=== PATIENT | female | born 1975 | race Caucasian/White ===

== ENCOUNTER 2018-07-08 10:13 | Inpatient (IN) | payer MEDICAID, OTHER ==
--- NOTE | 2018-07-08 10:45 | ED ---
General Adult HPI - General Chief complaint: Psychiatric Symptoms Stated complaint: Mental Health Source: patient, RN notes reviewed Mode of arrival: ambulatory Limitations: no limitations - History of Present Illness Initial comments: 42-year-old female presents to the emergency department for a chief complaint of suicidal thoughts. Patient states these have been ongoing for quite some time however are worsening in the past several days. Patient states she is hearing auditory hallucinations telling her to kill herself by either slitting her wrists or stabbing herself. Patient does have a legal guardian who states this occurs every few years and patient generally needs a medication adjustment. Patient is still taking her medications as recommended. Patient states these voices are starting to cause her severe anxiety. States she had a dream last night in which she in vision herself killing herself and she woke up crying and upset.Patient has no other complaints at this time including shortness of breath, chest pain, abdominal pain, nausea or vomiting, headache, or visual changes. - Related Data Home Medications Medication Instructions Recorded Confirmed ALPRAZolam [Xanax] 1 mg PO TID 07/08/18 07/08/18 Acyclovir 400 mg PO BID 07/08/18 07/08/18 Benztropine Mesylate [Cogentin] 0.5 mg PO BID 07/08/18 07/08/18 FLUoxetine HCL [PROzac] 80 mg PO DAILY 07/08/18 07/08/18 Levothyroxine Sodium [Synthroid] 50 mcg PO DAILY 07/08/18 07/08/18 Paliperidone IM [Invega Sustenna] 234 mg IM Q28D 07/08/18 07/08/18 Paliperidone [Invega] 6 mg PO HS 07/08/18 07/08/18 Previous Rx's Medication Instructions Recorded Furosemide [Lasix] 10 mg PO DAILY 30 Days dose 10/08/15 Prazosin [Minipress] 5 mg PO HS #30 cap 10/08/15 lamoTRIgine [LaMICtal] 200 mg PO BID 30 Days tab 10/08/15 Allergies Allergy/AdvReac Type Severity Reaction Status Date / Time codeine Allergy Unknown Hallucinati Verified 07/08/18 11:16 ons Iodinated Contrast- Oral and Allergy Unknown Verified 07/08/18 11:16 IV Dye latex Allergy Unknown Verified 07/08/18 11:16 Review of Systems ROS Statement: Those systems with pertinent positive or pertinent negative responses have been documented in the HPI. ROS Other: All systems not noted in ROS Statement are negative. Past Medical History Past Medical History: No Reported History History of Any Multi-Drug Resistant Organisms: None Reported, MRSA Date of last positivie culture/infection: 2007 MDRO Source:: abdomina, and axillary Past Surgical History: Section, Cholecystectomy Additional Past Surgical History / Comment(s): Patient states she is going for a colonscopy 10/12/2015 due to loose stools Past Psychological History: Bipolar, Depression, Schizophrenia Smoking Status: Current every day smoker Past Alcohol Use History: None Reported Past Drug Use History: Marijuana General Exam Limitations: no limitations General appearance: alert, in no apparent distress Head exam: Present: atraumatic, normocephalic, normal inspection Eye exam: Present: normal appearance, PERRL, EOMI. Absent: scleral icterus, conjunctival injection, periorbital swelling ENT exam: Present: normal exam, mucous membranes moist Neck exam: Present: normal inspection, full ROM. Absent: tenderness, meningismus, lymphadenopathy Respiratory exam: Present: normal lung sounds bilaterally. Absent: respiratory distress, wheezes, rales, rhonchi, stridor Cardiovascular Exam: Present: regular rate, normal rhythm, normal heart sounds. Absent: systolic murmur, diastolic murmur, rubs, gallop, clicks Neurological exam: Present: alert, oriented X3, CN II-XII intact Psychiatric exam: Present: suicidal ideation. Absent: homicidal ideation Course Vital Signs 07/08/18 10:20 Temperature 97.8 F Pulse Rate 70 Respiratory 18 Rate Blood Pressure 102/66 O2 Sat by Pulse 99 Oximetry Medical Decision Making - Medical Decision Making 42-year-old female with psychiatric history presents for auditory hallucinations and thoughts of suicide. This has happened before with patient. She is still taking her medications. However patient is very anxious and concerned about these thoughts. Patient was evaluated by EPS. Will be admitted for further management. - Lab Data Lab Results 07/08/18 Range/Units 10:40 Urine Opiates Screen Not Detected (NotDetected) Ur Oxycodone Screen Not Detected (NotDetected) Urine Methadone Screen Not Detected (NotDetected) Ur Propoxyphene Screen Not Detected (NotDetected) Ur Barbiturates Screen Not Detected (NotDetected) U Tricyclic Antidepress Not Detected (NotDetected) Ur Phencyclidine Scrn Not Detected (NotDetected) Ur Amphetamines Screen Not Detected (NotDetected) U Methamphetamines Scrn Not Detected (NotDetected) U Benzodiazepines Scrn Detected H (NotDetected) Urine Cocaine Screen Not Detected (NotDetected) U Marijuana (THC) Screen Not Detected (NotDetected) Disposition Clinical Impression: Auditory hallucinations, Suicidal thoughts Disposition: TRANSFER TO PSYCH HOSP/UNIT Condition: Good Is patient prescribed a controlled substance at d/c from ED?: No Referrals: Nonstaff,Physician [Primary Care Provider] - 1-2 days Time of Disposition: 13:12
[2018-07-08 11:22] LABS: Amphetamine Screen,Urine Not Detected (NotDetected); Cocaine Screen,Urine Not Detected (NotDetected); Opiate Screen,Urine Not Detected (NotDetected); Phencyclidine Screen,Urine Not Detected (NotDetected); Urn Cannabinoid Scrn Not Detected (NotDetected)
[2018-07-08 11:23] LABS: Barbiturate Screen,Urine Not Detected (NotDetected); Benzodiazepines Screen,Urine Detected (NotDetected); Methadone Screen, Urine Not Detected (NotDetected); Oxycodone Screen, Urine Not Detected (NotDetected); Tricyclic Antidepressant,Urine Not Detected (NotDetected)
[2018-07-08] MEDS ORDERED: MAG HYDROX/AL HYDROX/SIMETH 30 ML CUP PO PRN (14:55)
[2018-07-08] MEDS ORDERED: ACETAMINOPHEN TAB 325 MG TAB PO PRN (14:55)
[2018-07-08] MEDS ORDERED: MAGNESIUM HYDROXIDE 2,400 MG/10 ML CUP PO PRN (14:55)
--- NOTE | 2018-07-08 18:01 | P.CONS ---
History of Present Illness - Reason for Consult Consult date: 07/08/18 - History of Present Illness Patient is a 42-year-old female with a PMH of hypothyroidism, schizoaffective disorder, genital herpes, and chronic lower back pain presented to the ED for suicidal ideation. The patient notes that despite compliance with her antidepressants, she continues to have depressive thoughts along with suicidal ideation, along with her thoughts telling her to hurt herself. She reports planning on slitting her wrists. The patient also endorsed an ongoing genital herpes infection, which has been resistant to acyclovir prescribed by her PCP. She continues to have dysuria and pain. The patient also endorsed cough productive of greenish phlegm along with URI symptoms ongoing for the past 1 week. She reports she gets similar symptoms every year which always resolve spontaneously. She otherwise denied any active complaints including chest pain, shortness of breath, fever, chills, abdominal pain, nausea, or vomiting. Review of Systems Pertinent positives and negatives as discussed in HPI, a complete review of systems was performed and all other systems are negative. Past Medical History Past Medical History: No Reported History History of Any Multi-Drug Resistant Organisms: None Reported, MRSA Year Discovered:: 2007 MDRO Source:: abdomina, and axillary Past Surgical History: Section, Cholecystectomy Additional Past Surgical History / Comment(s): Patient states she is going for a colonscopy 10/12/2015 due to loose stools Past Psychological History: Bipolar, Depression, Schizophrenia Smoking Status: Current every day smoker Past Alcohol Use History: None Reported Past Drug Use History: Marijuana Medications and Allergies Home Medications Medication Instructions Recorded Confirmed Type Furosemide [Lasix] 10 mg PO DAILY 30 Days dose 10/08/15 07/08/18 Rx Prazosin [Minipress] 5 mg PO HS #30 cap 10/08/15 07/08/18 Rx lamoTRIgine [LaMICtal] 200 mg PO BID 30 Days tab 10/08/15 07/08/18 Rx ALPRAZolam [Xanax] 1 mg PO TID 07/08/18 07/08/18 History Acyclovir 400 mg PO BID 07/08/18 07/08/18 History Benztropine Mesylate [Cogentin] 0.5 mg PO BID 07/08/18 07/08/18 History FLUoxetine HCL [PROzac] 80 mg PO DAILY 07/08/18 07/08/18 History Levothyroxine Sodium [Synthroid] 50 mcg PO DAILY 07/08/18 07/08/18 History Paliperidone IM [Invega Sustenna] 234 mg IM Q28D 07/08/18 07/08/18 History Paliperidone [Invega] 6 mg PO HS 07/08/18 07/08/18 History Allergies Allergy/AdvReac Type Severity Reaction Status Date / Time codeine Allergy Unknown Hallucinati Verified 07/08/18 11:16 ons Iodinated Contrast- Oral and Allergy Unknown Verified 07/08/18 11:16 IV Dye latex Allergy Unknown Verified 07/08/18 11:16 Physical Exam Vitals: Vital Signs Temp Pulse Resp BP Pulse Ox 07/08/18 14:30 97.6 F 63 16 115/75 93 L 07/08/18 10:20 97.8 F 70 18 102/66 99 Intake and Output 07/08/18 07/08/18 07/08/18 06:59 14:59 22:59 Other: Weight 128.367 kg 130.635 kg General: non toxic, no distress, appears older than stated age, morbidly obese Derm: no unusual rashes/lesions no unusual ecchymoses, warm, dry Head: atraumatic, normocephalic, symmetric Eyes: EOMI, no lid lag, anicteric sclera, pupils equal round reactive to light ENT: Nose and ears atraumatic, no thrush, no pharyngeal erythema Neck: No thyromegaly, no cervical lymphadenopathy, trachea midline, supple Mouth: no lip lesion, mucus membranes moist Cardiovascular: S1S2 reg, no murmur, positive posterior tibial pulse bilateral, no edema, capillary refill less than 2 seconds Lungs: CTA bilateral, no rhonchi, no rales , no accessory muscle use Abdominal: soft, nontender to palpation, no guarding, no appreciable organomegaly, normal bowel sounds Ext: no gross muscle atrophy, muscle strength 5 out of 5 in all 4 extremities grossly, no contractures, Neuro: CN II-XI grossly intact, light touch intact all 4 extremities, finger to nose within normal limits, Psych: Alert, oriented, flat affect Results Labs: Abnormal Lab Results - Last 24 Hours (Table) 07/08/18 Range/Units 10:40 U Benzodiazepines Scrn Detected H (NotDetected) Assessment and Plan Plan: Genital herpes -Continue with acyclovir -Since patient continues to have symptoms despite several weeks of therapy, we'll consult [employer]SING Hypothyroidism -Resume home dose of levothyroxine Viral bronchitis, URI -Symptomatic management Depression, suicidal ideation -As per psychiatry Thank you for allowing us to participate in the care of this patient. We will follow peripherally. Do not hesitate to contact us with questions. Someone can be reached from the [facility] hospitalist group at all hours of the day at [phone].
[2018-07-08 18:15] VITALS: BMI 35.6
[2018-07-08] MEDS: lamoTRIgine 100 MG TAB PO SCH (21:58)
[2018-07-08] MEDS: PRAZOSIN 1 MG CAP PO SCH (21:58)
[2018-07-08] MEDS: ACYCLOVIR 200 MG CAP PO SCH (21:58)
[2018-07-08] MEDS: PALIPERIDONE 6 MG TAB.ER.24 PO SCH (21:59)
[2018-07-09] MEDS: LEVOTHYROXINE 50 MCG TAB PO SCH (07:14)
[2018-07-09] MEDS: lamoTRIgine 100 MG TAB PO SCH ×2 (08:25→20:08)
[2018-07-09] MEDS: ACYCLOVIR 200 MG CAP PO SCH ×2 (08:25→20:09)
[2018-07-09] MEDS: FUROSEMIDE 10 MG TAB PO SCH (08:25)
--- NOTE | 2018-07-09 08:25 | P.CON ---
Consult Note - . Consult date: 07/09/18 Assessment/Plan:: This is a 42-year-old white female 3 para 3003 last menstrual period 3 years ago. Patient states that her menses stopped after medication adjustment for her psychiatric disorders. She has a long-standing history of schizoaffec tive bipolar disorder. She was admitted yesterday through the emergency room with auditory hallucinations, telling her to kill herself. In addition, she states she has a vulvar lesion that has not resolved with oral acyclovir twice daily. She denies any unusual vaginal discharge, no unusual bleeding, no odor. Past medical history is significant for schizoaffective bipolar disorder diagnosed 9 years ago. She has hypothyroidism, and states she has had a herpes lesion for approximately 1 year, however this has never been cultured. Past surgical history cholecystectomy, right axillary cyst removal of benign nature, and excision of a left upper abdominal MRSA positive lesion. Patient has also had 2 sections. Past CASH ACCOUNTING CLERK history menarche began at the age of 12, menses occurred every 28 days lasting 4 days. She became amenorrheic 3 years ago, and was told this was secondary to her psychiatric medication. She denies gonorrhea, chlamydia, or other CASH ACCOUNTING CLERK infections. She has not been sexually active for proximally 3 years. Last Pap smear was 1 year ago and within normal limits per primary care physician. Patient has never had a mammogram. Current medications Prozac, Lamictal, in Quintero injections once monthly as well as orally daily, benzodiazepine, Xanax, Synthroid, Lasix, acyclovir 400 mg twice daily. ALLERGIES include latex to which reports skin blisters, iodine to which reports a generalized rash, and codeine which "makes me crazy". Social history tobacco for 30 years, currently one half pack per day. She admits to marijuana use last used one year ago. She denies alcohol or other illicit drug use. She is single, lives in [facility], and is currently unemployed. Family history mother age 62 has fibromyalgia, father age 62 has issues with knees and back. 3 7-year-old sister has cardiac issues, 38-year-old half brother is alive and well. She states there is a family history of ovarian cancer in a paternal aunt, breast cancer in a paternal aunt. There is also history in the family of lymphoma, lung cancer, throat cancer. On exam this is a cooperative white female who is 5 foot 7 inches, 288 pounds, temperature 98.0, pulse 65, respirations 14, blood pressure 129/60. Patient has 5 tattoos on the skin. HEENT exam reveals reasonably good dentition, no thyromegaly, no cervical lymphadenopathy, normal range of motion in the neck. Breasts are bilaterally symmetric to inspection, no skin dimpling, nipple discharge, axillary adenopathy or other discernible lesions or masses. Chest is clear to auscultation in all fatima anteriorly and posteriorly. Cardiac exam reveals a soft grade 2 murmur, no clicks or rubs. Abdomen is grossly obese, no obvious skin lesions, no organosplenomegaly, active bowel sounds, no CVA tenderness. Extremities reveal no edema, reasonably good peripheral pulses, good range of motion. On pelvic exam the external genitalia appears clean and healthy. There is no unusual vaginal discharge or odor. There is a lesion that appears to be consistent with herpes the right periclitoral area. HSV cultures are performed. Bimanual reveals a small cervix, small mobile anteverted uterus, negative adnexa bilaterally. Pelvic exam is somewhat limited secondary to patient's body habitus. Impression: Recent admission to the psychiatric unit for this pleasant white female who has a long-standing history of schizoaffective bipolar disorder, with recent suicidal ideation. HSV infection. Plan: We will change her medications to valacyclovir 1 g orally daily for 5 days. Mammogram is recommended as a baseline has not been performed. Thank you for the consultation.
[2018-07-09] MEDS: ALPRAZolam 1 MG TAB PO PRN ×2 (08:27→20:39)
[2018-07-09] MEDS: valACYclovir HCL 1,000 MG TABLET PO SCH (08:43)
[2018-07-09] MEDS ORDERED: FLUoxetine HCL 20 MG CAP PO SCH (09:00)
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
[2018-07-09 11:32] LABS: Basophils % (A) 0 %; Eosinophils # (A) 0.1 k/uL (0-0.7); Eosinophils % (A) 2 %; HCT 42.1 % (34.0-46.0); HGB 13.9 gm/dL (11.4-16.0); Lymphocytes # (A) 2.5 k/uL (1.0-4.8); Lymphocytes % (A) 34 %; MCH 28.9 pg (25.0-35.0); MCV 87.6 fL (80.0-100.0); Mean Platelet Volume 6.9; Monocytes # (A) 0.4 k/uL (0-1.0); Monocytes % (A) 5 %; Neutrophils # (A) 4.1 k/uL (1.3-7.7); Neutrophils % (A) 56 %; Platelet Count 335 k/uL (150-450); RDW 13.6 % (11.5-15.5); WBC 7.4 k/uL (3.8-10.6)
[2018-07-09 12:07] LABS: Albumin 3.6 g/dL (3.5-5.0); Bilirubin, Delta 0.1 mg/dL (0.0-0.2); Bilirubin,Unconjugated 0.2 mg/dL (0.0-1.1); Calcium 9.4 mg/dL (8.4-10.2); Potassium 4.7 mmol/L (3.5-5.1); Total Bilirubin 0.3 mg/dL (0.2-1.3); Total Protein 6.1 g/dL (6.3-8.2)
[2018-07-09] MEDS: PALIPERIDONE 6 MG TAB.ER.24 PO SCH (20:08)
[2018-07-09] MEDS: PRAZOSIN 1 MG CAP PO SCH (20:08)
[2018-07-09 21:19] LABS: Hemoglobin A1C 5.6 % (4.0-6.0)
[2018-07-10 05:53] LABS: Appearance,Urine Clear (Clear); Bilirubin,Urine Negative (Negative); Blood,Urine Negative (Negative); Color,Urine Colorless; Glucose,Urine (UA) Negative (Negative); Ketones,Urine Negative (Negative); Leukocyte Esterase,Urine Negative (Negative); Nitrite,Urine Negative (Negative); PH, Urine 6.5 (5.0-8.0); Protein,Urine Negative (Negative); Specific Gravity,Urine 1.003 (1.001-1.035); Urobilinogen,Urine <2.0 mg/dL (<2.0)
[2018-07-10] MEDS: LEVOTHYROXINE 50 MCG TAB PO SCH (05:58)
[2018-07-10] MEDS: lamoTRIgine 100 MG TAB PO SCH ×2 (08:12→20:39)
[2018-07-10] MEDS: FLUoxetine HCL 20 MG CAP PO SCH (08:12)
[2018-07-10] MEDS: valACYclovir HCL 1,000 MG TABLET PO SCH (08:12)
[2018-07-10] MEDS: FUROSEMIDE 10 MG TAB PO SCH (08:33)
[2018-07-10] MEDS: ACYCLOVIR 200 MG CAP PO SCH (10:13)
--- NOTE | 2018-07-10 11:31 | P.PN ---
Progress Note - Text Progress Note Date: 07/10/18 Interval history: Interviewed this morning one-on-one and we discussed her medications and her symptoms of still hearing voices which is disturbing to her. She still has depression but her main issue tends to be the voices. Chart was reviewed and discussed with nursing staff. Mental status examination: This is a 42-year-old female who is mesomorphic and is shy and remorseful. Mood is depressed 8 out of 10 anxiety 8 out of 10 fearful hopelessness. Affect is flat and blunted restricted. Orientation person place time and situation. Thought content within normal. Risk factors still includes suicidal ideation without a plan. Perception she does have auditory hallucinations. Concentration attention span is definitely impaired. Recent and remote memory are within normal. Intelligence is average. Judgment and insight are fair. Plan is to increase her Invega to 9 mg by mouth daily at bedtime for her auditory hallucinations. She will remain on 15 minute checks for safety and usual protocol for the unit. We'll maintain other medications and will observe if further medication medications are needed.
[2018-07-10] MEDS: ALPRAZolam 1 MG TAB PO PRN (16:47)
[2018-07-10] MEDS: PALIPERIDONE 3 MG TAB.ER.24 PO SCH (20:39)
[2018-07-10] MEDS: PRAZOSIN 1 MG CAP PO SCH (20:39)
[2018-07-10] MEDS ORDERED: SERTRALINE 25 MG TAB PO SCH (21:00)
[2018-07-11] MEDS: LEVOTHYROXINE 50 MCG TAB PO SCH (06:20)
[2018-07-11] MEDS: FUROSEMIDE 10 MG TAB PO SCH (08:22)
[2018-07-11] MEDS: valACYclovir HCL 1,000 MG TABLET PO SCH (08:22)
[2018-07-11] MEDS: lamoTRIgine 100 MG TAB PO SCH ×2 (08:22→20:31)
[2018-07-11] MEDS: FLUoxetine HCL 20 MG CAP PO SCH (08:22)
--- NOTE | 2018-07-11 11:12 | P.PN ---
Progress Note - Text Progress Note Date: 07/11/18 Interval history: Chart reviewed and discussed with nursing staff this morning. Patient is participating in groups and looks more alert and awake today. She says her voices are still there and depression is rated at 6 out of 10. Mental status examination this is a 42-year-old female who is now dressed casually and appears her stated age. Speech is spontaneous soft and to the point. Attitude and behaviors cooperative. Mood still remains depressed and anxious but feels more hopeful today. Affect full range somewhat blunted and presentation but better than yesterday. Orientation is to time person place and situation. Thought content is within normal. Risk factors she denies suicidal ideation today. Perception she still has voices and said that she's had those most of her life. Thought content is goal directed. Concentration and attention span within normal per observation and interview with the patient. Recent memory within normal as well as remote memory within normal. Intelligence is average. Judgment and insight is deemed as fair. Plan we'll increase her Zoloft to 50 mg by mouth daily at bedtime. She'll remain on her Invega as outlined and will remain on 15 minute checks and encouraged to go to groups and interact with her peers in a positive way which she seems to do more today than she did yesterday.
[2018-07-11 16:16] LABS: C. trachomatis,PCR Negative (Neg,Equiv); Chlamydia trachomatis Source Urine
[2018-07-11 16:21] LABS: N. gonorrhoeae,PCR Negative (Neg,Equiv); Neisseria Source Urine
[2018-07-11] MEDS: PRAZOSIN 1 MG CAP PO SCH (20:31)
[2018-07-11] MEDS: PALIPERIDONE 3 MG TAB.ER.24 PO SCH (20:31)
[2018-07-11] MEDS: ALPRAZolam 1 MG TAB PO PRN (20:31)
[2018-07-11] MEDS ORDERED: SERTRALINE 50 MG TAB PO SCH (21:00)
[2018-07-12] MEDS: LEVOTHYROXINE 50 MCG TAB PO SCH (06:56)
[2018-07-12 07:02] VITALS: BP 100/62; PULSE 61; RESP 16; TEMP 97.4
[2018-07-12] MEDS: lamoTRIgine 100 MG TAB PO SCH (08:30)
[2018-07-12] MEDS: valACYclovir HCL 1,000 MG TABLET PO SCH (08:30)
[2018-07-12] MEDS: FUROSEMIDE 10 MG TAB PO SCH (08:30)
[2018-07-12] MEDS: FLUoxetine HCL 20 MG CAP PO SCH (08:30)
--- NOTE | 2018-07-12 11:43 | P.DS ---
Providers Date of admission: 07/08/18 14:17 Expected date of discharge: 07/12/18 Attending physician: Timoteo Sebastian Consults: 07/08/18 14:55 Consult Physician Routine Consulting Provider: Shraddha Coronel Consult Reason/Comments: H & P and medical care Do you want consulting provider notified?: Yes 07/08/18 18:22 Consult Physician Routine Consulting Provider: Tea Solomon Consult Reason/Comments: Genital herpes Do you want consulting provider notified?: Yes Primary care physician: Physician Nonstaff - Discharge Diagnosis(es) (1) Bipolar disorder Current Visit: Yes Status: Acute Priority: High (2) Anxiety Current Visit: Yes Status: Acute Priority: Medium Hospital Course: Brief summary of admission note: This patient is a 42-year-old female who was admitted to the mental health unit through the emergency room with acute symptoms of psychosis and suicidal ideation. The patient had presented with a plan of cutting her wrist. She reported having these thoughts over the last month and they seemed to intensify. She characterizes her mood as being depressed. She reported she was tearful on a regular basis sleep was fragmented appetite was decreased. Energy level was described as low and she reported feeling hopeless. She reported to auditory hallucinations that began at age 31. He states sometimes they are supportive but often derogatory. She states they're constantly rare and seemed to get worse when she is around large groups of people. She also described having a physical sense of pain down both legs when she hears the voices. She endorses a history of manic episodes that seem classic in nature. She described constant feelings of anxiety. Recent stressors include stress and providing daycare for her 4-year-old nephew and she is awaiting her Social Security disability hearing. Summary of hospital course: The patient was admitted to the mental health unit voluntarily. We reviewed her presenting symptoms and treatment options. Although she has been carrying a diagnosis of schizoaffective disorder it seems that the patient has a significant contribution of personality disorder symptoms. It does appear that she has had manic episodes in the past. Symptoms of psychosis could be consistent with mood episodes or her personality disorder symptoms. This was discussed with her outpatient psychiatrist Dr. Charlton. We decided to make no changes to her antipsychotic but he was agreeable to having the Prozac changed and we transition her to Zoloft. The psychiatrist providing weekend coverage titrated the invega to 9 mg at bedtime but I feel the 6 mg is a more appropriate dose to continue so we will reduce that back to 6 mg. Fairly quickly the patient states that she is doing better there is a resolution of her psychosis as well as a resolution of her suicidal ideation. She states she was able to talk to her sister and compromise was made so that she will not be so overwhelmed in caring for her nephew. Staff reported the patient did quite well over the weekend and she had reported to them she was markedly improved. She has no questions or concerns regarding her psychotropic medication. The invega will be continued as a mood stabilizer. As well as the Lamictal. She was seen by internal medicine for routine history and physical exam. She was also seen by gynecology and placed on Valtrex 1000 mg daily for 5 days. Social work met with the patient for a psychosocial assessment and for discharge planning purposes. She is willing to have her sister come up for a support meeting today. Mental status exam: The patient is an overweight female appearing her stated age. She is dressed in her own clothing hygiene grooming adequate. She readily engages in the interview she is pleasant and cooperative. She is pleased to report that her mood is markedly improved. She is reporting no auditory hallucinations at this time. She states she has no hopeless thoughts a nd she denies having any suicidal ideation intent or plan. She reports no homicidal ideation intent or plan. She demonstrates no evidence of psychosis during our session. She endorses no specific delusions. Thought process is linear she demonstrates no tangential thinking loose associations or flight of ideas. She does not appear hypomanic or manic. She demonstrates no involuntary repetitive movements. She demonstrates no verbal or physical aggressiveness. She remains oriented to person place and date. She spontaneously describes future oriented thinking. Impressions 1. Bipolar 1 disorder most recent depressed, anxiety unspecified 2. Cluster B personality disorder traits 3. History of hypothyroidism, lower extremity edema Plan: The patient will be discharged mental health unit today. She will return residing with her sister and [id number]. She will continue on her invega systemic injections as well as oral invega 6 mg at bedtime. The Prozac has been discontinued she will continue on Zoloft 100 mg daily. She will continue on Lamictal 200 mg twice daily. She will continue working with Dr. Charlton her outpatient psychiatrist with [facility]. She will continue meeting with her piano case maker. At this time there is no imminent safety risk she is appropriate for transition back to outpatient care. She is instructed to return to the hospital with any acute safety concerns. She will participate in a support meeting involving her sister prior to discharge. Patient Condition at Discharge: Stable Plan - Discharge Summary Discharge Rx Participant: No New Discharge Prescriptions: New valACYclovir HCL [Valtrex] 1,000 mg PO DAILY #1 tablet Sertraline HCl [Zoloft] 100 mg PO DAILY #30 tab Continue lamoTRIgine [LaMICtal] 200 mg PO BID 30 Days tab Furosemide [Lasix] 10 mg PO DAILY 30 Days dose Prazosin [Minipress] 5 mg PO HS #30 cap ALPRAZolam [Xanax] 1 mg PO TID Paliperidone [Invega] 6 mg PO HS Paliperidone IM [Invega Sustenna] 234 mg IM Q28D Levothyroxine Sodium [Synthroid] 50 mcg PO DAILY Discontinued Acyclovir 400 mg PO BID Benztropine Mesylate [Cogentin] 0.5 mg PO BID FLUoxetine HCL [PROzac] 80 mg PO DAILY Discharge Medication List Furosemide [Lasix] 10 mg PO DAILY 30 Days dose 10/08/15 [Rx] Prazosin [Minipress] 5 mg PO HS #30 cap 10/08/15 [Rx] lamoTRIgine [LaMICtal] 200 mg PO BID 30 Days tab 10/08/15 [Rx] ALPRAZolam [Xanax] 1 mg PO TID 07/08/18 [History] Levothyroxine Sodium [Synthroid] 50 mcg PO DAILY 07/08/18 [History] Paliperidone IM [Invega Sustenna] 234 mg IM Q28D 07/08/18 [History] Paliperidone [Invega] 6 mg PO HS 07/08/18 [History] Sertraline HCl [Zoloft] 100 mg PO DAILY #30 tab 07/12/18 [Rx] valACYclovir HCL [Valtrex] 1,000 mg PO DAILY #1 tablet 07/12/18 [Rx] Follow up Appointment(s)/Referral(s): [facility] [Outside] - 07/14/18 2:30 pm (Emma De Oliveira injection also on 07/14/18 arrive just before appointment to get injection) Nonstaff,Physician [Primary Care Provider] - 1-2 days
[2018-07-12] MEDS ORDERED: PALIPERIDONE 6 MG TAB.ER.24 PO SCH (21:00)
== END 2018-07-12 15:11 | disposition home or self-care (01) | DRG 885 ==
LOC: EEVIPCON 10:13 → EC 10:13 → 3MHU 14:17
PROVIDERS: ADMIT Psychiatry & Neurology Psychiatry; ATTEND Psychiatry & Neurology Psychiatry
DX: F31.9 Bipolar disorder, unspecified (principal); Z68.41 Body mass index [BMI] 40.0-44.9, adult; R45.851 Suicidal ideations; F25.9 Schizoaffective disorder, unspecified; A60.00 Herpesviral infection of urogenital system, unspecified; E03.9 Hypothyroidism, unspecified; E66.3 Overweight; F17.210 Nicotine dependence, cigarettes, uncomplicated; F41.9 Anxiety disorder, unspecified; F60.89 Other specific personality disorders; Z79.890 Hormone replacement therapy; Z79.899 Other long term (current) drug therapy; Z88.5 Allergy status to narcotic agent; Z91.041 Radiographic dye allergy status; Z91.040 Latex allergy status; M54.5 Low back pain; G89.29 Other chronic pain; Z86.14 Personal history of Methicillin resistant Staphylococcus aureus infection; Z80.41 Family history of malignant neoplasm of ovary; Z80.3 Family history of malignant neoplasm of breast; Z80.7 Family history of other malignant neoplasms of lymphoid, hematopoietic and related tissues; Z80.1 Family history of malignant neoplasm of trachea, bronchus and lung; Z80.8 Family history of malignant neoplasm of other organs or systems; Z82.49 Family history of ischemic heart disease and other diseases of the circulatory system; J20.8 Acute bronchitis due to other specified organisms; Z62.810 Personal history of physical and sexual abuse in childhood
CPT/HCPCS: 80053; 80061; 80306; 81003; 81025; 82248; 83036; 84443; 85025; 87491; 87529; 87591; 99285

== ENCOUNTER 2019-11-05 15:48 | Inpatient (IN) | payer MEDICAID, OTHER ==
--- NOTE | 2019-11-05 16:11 | ED ---
General Adult HPI - General Chief complaint: Psychiatric Symptoms Stated complaint: mental health Time Seen by Provider: 11/05/19 16:05 Source: patient, RN notes reviewed, Caregiver Mode of arrival: ambulatory Limitations: no limitations - History of Present Illness Initial comments: Patient is a pleasant 44-year-old female presenting to the emergency department with complaints of hallucinations and suicidal thoughts. Symptoms have been worsening over the past week since medication change. Patient does hear thoughts that tell her to harm herself and others. Patient does have suicidal ideation. Patient denies homicidal ideation. No alcohol or street drug use. No new physical complaints. - Related Data Home Medications Medication Instructions Recorded Confirmed ALPRAZolam [Xanax] 0.5 - 1 mg PO TID PRN 07/08/18 11/05/19 Acyclovir 400 mg PO BID 11/05/19 11/05/19 Azithromycin [Zithromax Z-pack] See Taper PO DAILY 11/05/19 11/05/19 Benztropine Mesylate [Cogentin] 0.5 mg PO BID 11/05/19 11/05/19 Fluticasone Nasal [place] [Flonase 2 spray EA NOSTRIL DAILY 11/05/19 11/05/19 Nasal [place]] Ibuprofen [Motrin] 800 mg PO BID PRN 11/05/19 11/05/19 Sertraline HCl [Zoloft] 200 mg PO DAILY 11/05/19 11/05/19 cloZAPine [Clozaril] 100 mg PO HS 11/05/19 11/05/19 lamoTRIgine [LaMICtal] 200 mg PO BID 11/05/19 11/05/19 predniSONE 10 mg PO DAILY 11/05/19 11/05/19 Allergies Allergy/AdvReac Type Severity Reaction Status Date / Time codeine Allergy Unknown Hallucinati Verified 11/05/19 16:55 ons/Itching adhesive tape Allergy Rash/Hives Verified 11/05/19 16:55 Iodinated Contrast Media Allergy Rash/Hives Verified 11/05/19 16:55 [Iodinated Contrast- Oral and IV Dye] latex Allergy Rash/Hives Verified 11/05/19 16:55 Review of Systems ROS Statement: Those systems with pertinent positive or pertinent negative responses have been documented in the HPI. ROS Other: All systems not noted in ROS Statement are negative. Constitutional: Denies: fever Eyes: Denies: eye pain ENT: Denies: ear pain Respiratory: Denies: cough, dyspnea Cardiovascular: Denies: chest pain Endocrine: Denies: fatigue Gastrointestinal: Denies: abdominal pain Genitourinary: Denies: dysuria Musculoskeletal: Denies: back pain Skin: Denies: rash Neurological: Denies: weakness Psychiatric: Reports: auditory hallucinations, suicidal thoughts Past Medical History Past Medical History: Thyroid Disorder Additional Past Medical History / Comment(s): Pt reports hypothyroid, genital herpes, and bilateral leg swelling. History of Any Multi-Drug Resistant Organisms: None Reported, MRSA Date of last positivie culture/infection: 2007 MDRO Source:: abdomina, and axillary Past Surgical History: Section, Cholecystectomy Additional Past Surgical History / Comment(s): Patient states she is going for a colonscopy 10/12/2015 due to loose stools Past Anesthesia/Blood Transfusion Reactions: No Reported Reaction Past Psychological History: Bipolar, Depression, Schizophrenia Smoking Status: Current every day smoker Past Alcohol Use History: None Reported Past Drug Use History: None Reported, Marijuana General Exam Limitations: no limitations General appearance: alert, in no apparent distress Head exam: Present: normocephalic Eye exam: Present: normal appearance Neck exam: Present: normal inspection Respiratory exam: Present: normal lung sounds bilaterally Cardiovascular Exam: Present: regular rate, normal rhythm GI/Abdominal exam: Present: soft. Absent: tenderness Extremities exam: Present: normal inspection Neurological exam: Present: alert Psychiatric exam: Present: flat affect Skin exam: Present: normal color Course Vital Signs 11/05/19 15:51 Temperature 99.2 F Pulse Rate 96 Respiratory 18 Rate Blood Pressure 149/88 O2 Sat by Pulse 96 Oximetry Medical Decision Making - Medical Decision Making Patient was seen by mental health services with plans for admission. - Lab Data Lab Results 11/05/19 Range/Units 16:54 Urine Opiates Screen Not Detected (NotDetected) Ur Oxycodone Screen Not Detected (NotDetected) Urine Methadone Screen Not Detected (NotDetected) Ur Propoxyphene Screen Not Detected (NotDetected) Ur Barbiturates Screen Not Detected (NotDetected) U Tricyclic Antidepress Detected H (NotDetected) Ur Phencyclidine Scrn Not Detected (NotDetected) Ur Amphetamines Screen Not Detected (NotDetected) U Methamphetamines Scrn Not Detected (NotDetected) U Benzodiazepines Scrn Detected H (NotDetected) Urine Cocaine Screen Not Detected (NotDetected) U Marijuana (THC) Screen Not Detected (NotDetected) Disposition Clinical Impression: Suicidal ideation, Auditory hallucinations Disposition: TRANSFER TO PSYCH HOSP/UNIT Is patient prescribed a controlled substance at d/c from ED?: No Decision Time: 17:49
[2019-11-05 17:16] LABS: Amphetamine Screen,Urine Not Detected (NotDetected); Barbiturate Screen,Urine Not Detected (NotDetected); Benzodiazepines Screen,Urine Detected (NotDetected); Cocaine Screen,Urine Not Detected (NotDetected); Methadone Screen, Urine Not Detected (NotDetected); Opiate Screen,Urine Not Detected (NotDetected); Oxycodone Screen, Urine Not Detected (NotDetected); Phencyclidine Screen,Urine Not Detected (NotDetected); Tricyclic Antidepressant,Urine Detected (NotDetected); Urn Cannabinoid Scrn Not Detected (NotDetected)
[2019-11-05] MEDS ORDERED: ACETAMINOPHEN TAB 325 MG TAB PO PRN (17:51)
[2019-11-05] MEDS ORDERED: MAG HYDROX/AL HYDROX/SIMETH 30 ML CUP PO PRN (17:51)
[2019-11-05] MEDS ORDERED: MAGNESIUM HYDROXIDE 2,400 MG/10 ML CUP PO PRN (17:51)
[2019-11-05] MEDS ORDERED: ALPRAZolam 1 MG TAB PO PRN (17:55)
[2019-11-05] MEDS ORDERED: IBUPROFEN 800 MG TAB PO PRN (17:57)
[2019-11-05] MEDS ORDERED: cloZAPine 100 MG TAB PO SCH (21:00)
[2019-11-05] MEDS: lamoTRIgine 100 MG TAB PO SCH (22:31)
[2019-11-05] MEDS: BENZTROPINE MESYLATE 0.5 MG TAB PO SCH (22:31)
--- NOTE | 2019-11-06 00:41 | P.PN ---
Progress Note - Text Progress Note Date: 11/05/19 patient was sleeping, will reattempt to evaluate tomorrow
[2019-11-06 08:05] LABS: Basophils # (A) 0.1 k/uL (0-0.2); Basophils % (A) 1 %; Eosinophils # (A) 0.3 k/uL (0-0.7); Eosinophils % (A) 2 %; HCT 42.4 % (34.0-46.0); HGB 13.4 gm/dL (11.4-16.0); Lymphocytes # (A) 3.1 k/uL (1.0-4.8); Lymphocytes % (A) 28 %; MCH 28.5 pg (25.0-35.0); MCHC 31.7 g/dL (31.0-37.0); MCV 89.8 fL (80.0-100.0); Mean Platelet Volume 7.6; Monocytes # (A) 0.6 k/uL (0-1.0); Monocytes % (A) 5 %; Neutrophils # (A) 6.8 k/uL (1.3-7.7); Neutrophils % (A) 62 %; Platelet Count 300 k/uL (150-450); RBC 4.72 m/uL (3.80-5.40); RDW 13.9 % (11.5-15.5)
[2019-11-06 08:08] LABS: Albumin 3.9 g/dL (3.5-5.0); Calcium 8.9 mg/dL (8.4-10.2); Potassium 4.4 mmol/L (3.5-5.1); Total Bilirubin 0.4 mg/dL (0.2-1.3); Total Protein 6.6 g/dL (6.3-8.2)
[2019-11-06] MEDS: FLUTICASONE 50MCG/SPRAY NASAL 16GM EA NOSTRIL SCH (09:42)
[2019-11-06] MEDS: predniSONE 10 MG TAB PO SCH (09:43)
[2019-11-06] MEDS: BENZTROPINE MESYLATE 0.5 MG TAB PO SCH ×2 (09:43→20:39)
[2019-11-06] MEDS: AZITHROMYCIN 250 MG TAB PO SCH (09:43)
[2019-11-06] MEDS: lamoTRIgine 100 MG TAB PO SCH ×2 (09:43→20:39)
[2019-11-06] MEDS: haloperidoL 5 MG TAB PO SCH (09:43)
[2019-11-06 13:23] LABS: Hemoglobin A1C 6.2 % (4.0-6.0)
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
[2019-11-06] MEDS: cloZAPine 100 MG TAB PO SCH (20:39)
[2019-11-06] MEDS: cloZAPine 25 MG TAB PO SCH (20:39)
[2019-11-07] MEDS: AZITHROMYCIN 250 MG TAB PO SCH (09:04)
[2019-11-07] MEDS: FLUTICASONE 50MCG/SPRAY NASAL 16GM EA NOSTRIL SCH (09:04)
[2019-11-07] MEDS: BENZTROPINE MESYLATE 0.5 MG TAB PO SCH ×2 (09:04→20:01)
[2019-11-07] MEDS: haloperidoL 5 MG TAB PO SCH (09:05)
[2019-11-07] MEDS: lamoTRIgine 100 MG TAB PO SCH ×2 (09:05→20:01)
[2019-11-07] MEDS: predniSONE 10 MG TAB PO SCH (09:05)
[2019-11-07 09:54] LABS: Clozapine (Clozaril) 52 ng/mL (200-700); Norclozapine 54 ng/mL (200-700)
--- NOTE | 2019-11-07 13:42 | P.PN ---
Progress Note - Text Progress Note Date: 11/07/19 I did review medical records ,I discussed case in team meeting ,I did interview patient who came to office TODAY VITALS:98.3,P:77,R:17,BP:126/61 Slept 6 hours I reviewed medical consult LABS: UDS positive for Benzo and tricyclic,WBC: 11`.0,Neutrophil:6.8 A1c:6.2,Clozapine level:52,Norclozapine:54 Interim history: Patient stated that she has been feeling tired from Clozaril ,reports that auditory hallucinations are less "THEY ARE FADING",stated that she was on Invega but did not help voices and was changed to Clozaril 3 weeks ago,denies any sleeping or appetite problems, stated that she has been "snoring "and supposed to have sleep study to rule out Sleep apnea,denies any suicidal or homicidal ideation Mental status exam: She presented as overweight casually dressed young female , cooperative ,no agitation ,able to sit through interview,speech is non spontaneous but coherent,stated mood "tired",affect is constricted,, stated that command auditory hallucination "Are fading" ,denies any delusional thinking ,denies any suicidal or homicidal ,her insight and judgment are fair Clinical Problems: Bipolar :current episode depressed with psychotic features Schizoaffective,depressed Plan: Continue inpatient. Continue Clozaril 125 mg ,Haldol 5 mg ,Lamictal 200 mg BID,Cogentin ,decrease Xanax to 0.5 mg TID PRN to minimize sedation , will slowly titrate Clozaril to target psychotic symptoms,CBC with Diff weekly,monitor vitals. Evaluate clinical status and response to treatment on daily basis Encourage participation in therapeutic groups and activities
[2019-11-07] MEDS: ALPRAZolam 0.5 MG TAB PO PRN (17:48)
[2019-11-07] MEDS: cloZAPine 100 MG TAB PO SCH (20:01)
[2019-11-07] MEDS: cloZAPine 25 MG TAB PO SCH (20:01)
[2019-11-08 06:43] VITALS: BP 134/72; PULSE 97; RESP 18
[2019-11-08] MEDS: AZITHROMYCIN 250 MG TAB PO SCH (08:05)
[2019-11-08] MEDS: predniSONE 10 MG TAB PO SCH (08:06)
[2019-11-08] MEDS: lamoTRIgine 100 MG TAB PO SCH ×2 (08:07→19:51)
[2019-11-08] MEDS: haloperidoL 5 MG TAB PO SCH (08:07)
[2019-11-08] MEDS: BENZTROPINE MESYLATE 0.5 MG TAB PO SCH ×2 (08:07→19:50)
[2019-11-08] MEDS: FLUTICASONE 50MCG/SPRAY NASAL 16GM EA NOSTRIL SCH (08:08)
--- NOTE | 2019-11-08 11:54 | P.PN ---
Progress Note - Text Progress Note Date: 11/08/19 I did review medical records ,I discussed case in team meeting ,I did interview patient who was laying in bed and not able to come to office TODAY VITALS:Tem:98.2,P:97,BP:134/72 Slept 6 hours SLEEP: patient stated that she slept from 10 PM till 2 AM,has been up since Not participating in groups Interim history: Patient stated that she has been feeling tired from Clozaril ,reports that auditory hallucinations are less ,endorses feeling tired as she has been up since 2 AM :I have a lot on my mind"", patient oupatient provider DR Charlton did contact SW and asked that will titrate Clozaril to control her auditory hallucination,patient denies any appetite problems,reports poor motivation and lacking energy,denies any suicidal or homicidal ideation Mental status exam: She presented as overweight casually dressed young female , cooperative ,no agitation ,able to participate in interview,speech is non spontaneous but coherent,stated mood "tired",affect is constricted,, stated that command auditory hallucination less" ,denies any delusional thinking ,denies any suicidal or homicidal ,her insight and judgment are fair Clinical Problems: Bipolar :current episode depressed with psychotic features Schizoaffective,depressed Plan: Continue inpatient. increase Clozaril 150 mg ,continue,Haldol 5 mg ,Lamictal 200 mg BID,Cogentin and Xanax to 0.5 mg TID PRN , will slowly titrate Clozaril to target psychotic symptoms,CBC with Diff weekly,monitor vitals. Evaluate clinical status and response to treatment on daily basis Encourage participation in therapeutic groups and activities
[2019-11-08] MEDS: cloZAPine 100 MG TAB PO SCH (19:50)
[2019-11-08] MEDS: ALPRAZolam 0.5 MG TAB PO PRN (19:51)
[2019-11-08] MEDS ORDERED: cloZAPine 25 MG TAB PO SCH (21:00)
--- NOTE | 2019-11-08 23:37 | P.MDCNMH ---
History of Present Illness H&P Date: 11/08/19 Chief Complaint: cough and congestion 44-year-old female with schizophrenia and depression Patient comes in due to hallucinations and acute psychosis patient was hearing voices telling her to harm herself with suicidal thoughts. Patient is complaining of coughing congestion and runny nose of about 1 week duration denies any fevers or chills denies any loss of taste or smell sensation denies any diarrhea nausea or vomiting denies any bodyaches denies any recent traveling or sick contact with no known covid 19 patient's Review of Systems Pertinent positives as noted in HPI. All other systems were reviewed and are negative Past Medical History Past Medical History: Thyroid Disorder Additional Past Medical History / Comment(s): Pt reports hypothyroid, genital herpes, and bilateral leg swelling. History of Any Multi-Drug Resistant Organisms: None Reported, MRSA Date of last positivie culture/infection: 2007 MDRO Source:: abdomina, and axillary Past Surgical History: Section, Cholecystectomy Additional Past Surgical History / Comment(s): Patient states she is going for a colonscopy 10/12/2015 due to loose stools Past Anesthesia/Blood Transfusion Reactions: No Reported Reaction Past Psychological History: Bipolar, Depression, Schizophrenia Smoking Status: Current every day smoker Past Alcohol Use History: None Reported Past Drug Use History: None Reported, Marijuana Additional Drug Use History / Comment(s): Smoked Marijuana 6 months ago, doesnt smoke anymore - Past Family History Family Family Medical History: No Reported History Medications and Allergies Home Medications Medication Instructions Recorded Confirmed Type ALPRAZolam [Xanax] 0.5 - 1 mg PO TID PRN 07/08/18 11/05/19 History Acyclovir 400 mg PO BID 11/05/19 11/05/19 History Azithromycin [Zithromax Z-pack] See Taper PO DAILY 11/05/19 11/05/19 History Benztropine Mesylate [Cogentin] 0.5 mg PO BID 11/05/19 11/05/19 History Fluticasone Nasal [place] [Flonase 2 spray EA NOSTRIL DAILY 11/05/19 11/05/19 History Nasal [place]] Ibuprofen [Motrin] 800 mg PO BID PRN 11/05/19 11/05/19 History Sertraline HCl [Zoloft] 200 mg PO DAILY 11/05/19 11/05/19 History cloZAPine [Clozaril] 100 mg PO HS 11/05/19 11/05/19 History lamoTRIgine [LaMICtal] 200 mg PO BID 11/05/19 11/05/19 History predniSONE 10 mg PO DAILY 11/05/19 11/05/19 History Allergies Allergy/AdvReac Type Severity Reaction Status Date / Time codeine Allergy Unknown Hallucinati Verified 11/05/19 16:55 ons/Itching adhesive tape Allergy Rash/Hives Verified 11/05/19 16:55 Iodinated Contrast Media Allergy Rash/Hives Verified 11/05/19 16:55 [Iodinated Contrast- Oral and IV Dye] latex Allergy Rash/Hives Verified 11/05/19 16:55 Physical Exam Vitals: Vital Signs Temp Pulse Resp BP Pulse Ox 11/08/19 06:42 98.2 F 97 18 134/72 96 Constitutional: No acute distress, conversant, pleasant Eyes: Anicteric sclerae, moist conjunctiva, Pupils equal round reactive to light ENMT: NC/AT Oropharynx clear, no erythema,or exudates Neck: Supple, FROM, no masses, or JVD No carotid bruits No thyromegaly Lungs: Clear to auscultation Clear to percussion Normal respiratory effort, no accessory muscle use Cardiovascular: Heart regular in rate and rhythm, No murmurs, gallops, or rubs No peripheral edema Abdominal: Soft Nontender, no guarding, rebound or rigidity Abdomen moving with respiration Normoactive bowel sounds No hepatomegaly, No splenomegaly No palpable mass No abdominal wall hernia noted Skin: Normal temperature, tone, texture, turgor No induration No subcutaneous nodules No rash, lesions No ulcers Extremities: No digital cyanosis No clubbing Pedal pulses intact and symmetrical Radial pulses intact and symmetrical No calf tenderness Psychiatric: Alert and oriented to person, place and time Appropriate affect fair judgement Neuro Muscles Strength 5/5 in all 4 extremities Sensation to light touch grossly present throughout Cranial nerves II-XII grossly intact No focal sensory deficits Lymphatics: no palpable cervical or supraclavicular , or inguinal lymph no cristina Cranial Nerve Examination - Cranial Nerves Cranial Nerve II- Optic: Intact Cranial Nerve III- Oculomotor: Intact Cranial Nerve IV- Trochlear: Intact Cranial Nerve V- Trigeminal: Intact Cranial Nerve - Abducens: Intact Cranial Nerve VII- Facial: Intact Cranial Nerve VIII- Auditory: Intact Cranial Nerve IX- Glossopharyngeal: Intact Cranial Nerve X- Vagus: Intact Cranial Nerve XI- Accessory: Intact Cranial Nerve XII- Hypoglossal: Intact Results CBC & Chem 7: 11/06/19 07:31 11/06/19 07:31 Assessment and Plan Assessment: acute psychosis suicidal ideation depression management per psych cough and congestion rule out COVID 19 patient finished course of Zpack , not much improvement supportive care consider droplet isolation Thank you for allowing us to participate in the care of this patient. We will follow peripherally. Do not hesitate to contact us with questions. Someone can be reached from the [facility] hospitalist group at all hours of the day at [phone].
[2019-11-09] MEDS: ACYCLOVIR 200 MG CAP PO SCH ×3 (01:28→21:30)
[2019-11-09] MEDS: BENZTROPINE MESYLATE 0.5 MG TAB PO SCH ×2 (01:29→21:31)
[2019-11-09] MEDS: guaiFENesin 600 MG TABLET.ER PO SCH ×3 (01:29→21:31)
[2019-11-09] MEDS: haloperidoL 5 MG TAB PO SCH ×2 (01:31→10:32)
[2019-11-09] MEDS: lamoTRIgine 100 MG TAB PO SCH ×2 (01:31→21:31)
--- NOTE | 2019-11-09 08:30 | P.PN ---
Progress Note - Text Progress Note Date: 11/09/19 I did review medical records ,I discussed case in team meeting ,I did interview patient who was laying in bed and not able to come to office as she is on droplet isolation I reviewed medical consultation (Assessment: ((cough and congestion rule out COVID 19 patient finished course of Zpack , not much improvement supportive care consider droplet isolation ) SLEEP: stated that she slept better last night "At least 5 hours"as she took Xanax with 150 mg Clozaril Interim history: Patient endorses frustration as she is on isolation ,stated that auditory hallucination ""very quiet ,back of my mind",reports poor motivation and lacking energy probably combination of Clozaril side-effect and her sleep apnea ,denies any suicidal or homicidal ideation,denies any delusion or ideas of refence Mental status exam: She presented as overweight casually dressed young female , cooperative ,no agitation ,able to participate in interview,speech is rapid ,rambling but coherent stated mood "frustrated"",affect is constricted,, stated that command auditory hallucination "Very quiet" ,denies any delusional thinking ,denies any suicidal or homicidal ,her insight and judgment are fair Clinical Problems: Bipolar :current episode depressed with psychotic features Schizoaffective,depressed Plan: Continue inpatient.Continue Clozaril 150 mg ,continue,Haldol 5 mg ,Lamictal 200 mg BID,Cogentin and Xanax to 0.5 mg TID PRN , will slowly titrate Clozaril to target psychotic symptoms,CBC with Diff weekly,monitor vitals. Evaluate clinical status and response to treatment on daily basis Encourage participation in therapeutic groups and activities
[2019-11-09 09:30] LABS: Basophils % (A) 0 %; Eosinophils # (A) 0.2 k/uL (0-0.7); Eosinophils % (A) 2 %; HGB 12.3 gm/dL (11.4-16.0); Lymphocytes # (A) 2.5 k/uL (1.0-4.8); Lymphocytes % (A) 29 %; MCH 28.2 pg (25.0-35.0); MCHC 31.6 g/dL (31.0-37.0); MCV 89.2 fL (80.0-100.0); Mean Platelet Volume 7.6; Monocytes # (A) 0.5 k/uL (0-1.0); Monocytes % (A) 6 %; Neutrophils # (A) 5.4 k/uL (1.3-7.7); Neutrophils % (A) 61 %; Platelet Count 277 k/uL (150-450); RBC 4.37 m/uL (3.80-5.40); WBC 8.8 k/uL (3.8-10.6)
[2019-11-09] MEDS: FLUTICASONE 50MCG/SPRAY NASAL 16GM EA NOSTRIL SCH (10:28)
[2019-11-09] MEDS: cloZAPine 100 MG TAB PO SCH (21:30)
[2019-11-09 21:48] VITALS: TEMP 98.3
[2019-11-10] MEDS: ALPRAZolam 0.5 MG TAB PO PRN (01:28)
[2019-11-10] MEDS: FLUTICASONE 50MCG/SPRAY NASAL 16GM EA NOSTRIL SCH (08:21)
[2019-11-10] MEDS: lamoTRIgine 100 MG TAB PO SCH (08:21)
[2019-11-10] MEDS: BENZTROPINE MESYLATE 0.5 MG TAB PO SCH (08:21)
[2019-11-10] MEDS: guaiFENesin 600 MG TABLET.ER PO SCH (08:21)
[2019-11-10] MEDS: ACYCLOVIR 200 MG CAP PO SCH (08:21)
[2019-11-10] MEDS: haloperidoL 5 MG TAB PO SCH (08:21)
--- NOTE | 2019-11-10 18:29 | DS ---
DISCHARGE SUMMARY DATE OF ADMISSION: 11/05/2019 DATE OF DISCHARGE: 11/10/2019. MEDICAL CONSULTATION: Dr. Mirna Watts for H&P and medical management of her sinusitis. PRIMARY CARE PHYSICIAN: Dr. Mulligan. DISCHARGE DIAGNOSES: 1. Schizoaffective disorder, bipolar type. 2. Hypothyroidism. 3. Rule out sleep apnea. HISTORY OF PRESENT ILLNESS: Please refer to Dr. Montanez's dictation on November 05. According to his notes, the patient is a 42-year-old female who presented to the emergency room with acute symptoms of psychosis with command auditory hallucinations telling her to hurt herself. She denied any homicidal ideation. She denied any illicit drug use. The patient was on prednisone for one week that has been tapering, and this could explain some of the worsening of her hallucinations. At the time of her admission she was on clozapine 100 mg at bedtime, Cogentin 0.5 twice a day, Lamictal 200 twice a day, Zoloft 200 once a day, Xanax 1 mg three times a day and tapering dose of prednisone. At the time of admission she was complaining of trouble falling asleep and staying asleep, feeling hopeless. She stated that the voices have been with her since age 21; however, over the last week prior to her admission there were command voices telling her to hurt herself and even sometimes telling her to hurt the beloved family. During the admission note, she stated that usually the voices get worse when she is in large crowds. She had history of manic episode with symptoms of increased energy and decreased sleep. Also she was experiencing high anxiety during the admission. HOSPITAL COURSE: The patient was admitted and Dr. Montanez continued her on Clozaril 500 mg daily, Lamictal 200 mg twice a day, Cogentin 0.5 twice a day, Xanax 1 mg three times a day as needed, acyclovir 400 twice a day, Flonase p.r.n., Zoloft 200 mg daily. In addition, she was continued on haloperidol 5 mg and he switched it to bedtime. The patient was seen by the medical doctor, who was concerned that the patient might have coronavirus, as she was still having congestion and runny nose for one week despite finishing a course of Zithromax. So she was on isolation for 24 hours, and the test came back negative. He did order Mucinex p.r.n. for her. can intake worker received a phone call from patient's outpatient provider, Dr. Charlton, who stated that he wanted the patient to have titration of her Clozaril. So I did titrate it to 125, then to 150 mg a day. At that time the patient denied any command voices. She said, "Voices are fading and very quiet and they are very nice now." We were checking her CBC with differential, and on November 05 her white blood cell count was 11.0 with neutrophils 6.8. On November 08 her white blood cell count was 8.8 and neutrophils 5.4. Abnormal labs at the time of the admission: Her hemoglobin A1c was 6.2. Otherwise everything was within normal. Her urine drug screen was positive for benzodiazepine and tricyclic antidepressant. Clozapine level at the time of admission on November 04 was 52 and norclozapine was just 54. The patient was always complaining of trouble staying asleep, as she stated that she might have sleep apnea; however, until now she was not scheduled for a sleep study. The patient was snoring. Most probably her lack of energy and motivation was a combination of medication and her sleep apnea. The patient did attend and participate in some groups, and during the groups she was active, appropriate, with bright affect with adequate hygiene. The patient stated that she does feel comfortable to be discharged to follow up as an outpatient, and the staff did feel that the patient has been improving. MENTAL STATUS EXAMINATION: At the time of the discharge, the patient is a morbidly obese female who is pleasant and cooperative. She was dressed in her own clothing. Hygiene and grooming were fair. She was wearing eye glasses. She was able to sit in the chair without any agitation. Stated mood "better." Affect constricted. She stated that the auditory hallucinations have been very quiet and they were fading. She denied any idea of reference. She denied any paranoia or suspicious feeling. She denied any suicidal or homicidal ideation. She did not demonstrate any verbal or physical aggression or any involuntary movement. Her insight and judgment were fair. DISCHARGE DIAGNOSIS: Schizoaffective disorder, bipolar type. RECOMMENDATIONS: 1. The patient was instructed to contact Dr. Mulligan to refer her for a sleep study to rule out sleep apnea. 2. The patient was referred to [facility] to follow up with Dr. Charlton. 3. Patient was instructed to avoid any illicit drugs or alcohol. DISCHARGE MEDICATIONS: 1. Acyclovir 400 mg twice a day. 2. Flonase nasal spray p.r.n. 3. Motrin 800 twice a day p.r.n. 4. I did give her a one-week supply of Clozaril 150 mg at bedtime. 5. Two-week supply of Cogentin 0.5 twice a day. 6. Two-week supply of Haldol 5 mg at bedtime. 7. Two-week supply of Lamictal 200 mg twice a day. 8. Two-week supply of Zoloft 200 mg daily. 9. I did give her just 21 tablets of Xanax 0.5 mg to take up to 3 times a day p.r.n. for her anxiety. The patient is aware of the addiction potential of alprazolam or Xanax and the interaction with clozapine. MMODL / IJN: [id number] /
== END 2019-11-10 12:50 | disposition home or self-care (01) | DRG 885 ==
LOC: EC 15:48 → 3MHU 17:46 → UNDODISIN 11-09 13:08
PROVIDERS: ADMIT Psychiatry & Neurology Psychiatry; ATTEND Psychiatry & Neurology Psychiatry
DX: F25.0 Schizoaffective disorder, bipolar type (principal); Z68.43 Body mass index [BMI] 50.0-59.9, adult; R45.851 Suicidal ideations; Z20.828 Contact with and (suspected) exposure to other viral communicable diseases; E66.01 Morbid (severe) obesity due to excess calories; E03.9 Hypothyroidism, unspecified; A60.00 Herpesviral infection of urogenital system, unspecified; F17.200 Nicotine dependence, unspecified, uncomplicated; F06.4 Anxiety disorder due to known physiological condition; G47.30 Sleep apnea, unspecified; Z79.52 Long term (current) use of systemic steroids; Z79.899 Other long term (current) drug therapy; Z91.048 Other nonmedicinal substance allergy status; Z98.890 Other specified postprocedural states; Z91.410 Personal history of adult physical and sexual abuse; Z91.5 Personal history of self-harm; Z91.041 Radiographic dye allergy status; Z91.040 Latex allergy status; Z88.5 Allergy status to narcotic agent
CPT/HCPCS: 80053; 80061; 80159; 80306; 82075; 83036; 84443; 85025; 93005; 99285

== ENCOUNTER 2020-01-22 18:03 | Emergency (ER) | payer OTHER ==
[2020-01-22 18:15] VITALS: RESP 18
[2020-01-22 19:02] LABS: Basophils # (A) 0.2 k/uL (0-0.2); Basophils % (A) 3 %; Eosinophils # (A) 0.1 k/uL (0-0.7); Eosinophils % (A) 1 %; HCT 42.8 % (34.0-46.0); HGB 14.3 gm/dL (11.4-16.0); Lymphocytes # (A) 1.5 k/uL (1.0-4.8); Lymphocytes % (A) 24 %; MCH 29.4 pg (25.0-35.0); MCHC 33.5 g/dL (31.0-37.0); Mean Platelet Volume 7.7; Monocytes # (A) 0.4 k/uL (0-1.0); Monocytes % (A) 7 %; Neutrophils # (A) 3.9 k/uL (1.3-7.7); Neutrophils % (A) 64 %; Platelet Count 263 k/uL (150-450); RBC 4.86 m/uL (3.80-5.40); RDW 13.6 % (11.5-15.5); WBC 6.2 k/uL (3.8-10.6)
[2020-01-22 19:13] LABS: ALT 12 U/L (4-34); AST 20 U/L (14-36); African American GFR (CKD) >90 (>60 ml/min/1.73 sqM); Albumin 3.8 g/dL (3.5-5.0); Alkaline Phosphatase 78 U/L (38-126); Anion Gap 6 mmol/L; Blood Urea Nitrogen 12 mg/dL (7-17); Carbon Dioxide 27 mmol/L (22-30); Chloride 106 mmol/L (98-107); Glucose 83 mg/dL (74-99); Non-African American GFR(CKD) 84 (>60 ml/min/1.73 sqM); Sodium 139 mmol/L (137-145); Total Bilirubin 0.3 mg/dL (0.2-1.3); Total Protein 6.8 g/dL (6.3-8.2)
--- NOTE | 2020-01-22 19:20 | XR ---
EXAMINATION TYPE: XR chest 1V portable DATE OF EXAM: 01/22/2020 COMPARISON: NONE HISTORY: Pain TECHNIQUE: Single view FINDINGS: Heart and mediastinum are normal. Lungs are clear. Diaphragm is normal. Bony thorax is norm al. IMPRESSION: Normal chest.
--- NOTE | 2020-01-22 19:45 | ED ---
SOB HPI - General Chief Complaint: Shortness of Breath Stated Complaint: COVID symptoms Time Seen by Provider: 01/22/20 18:12 Source: patient, EMS Mode of arrival: EMS Limitations: no limitations - History of Present Illness Initial Comments: is a 44-year-old female who presents emergency department for cough and shortness of breath over the last 2 days. The patient states it's been progressively worsening. She states that she feels a tightness in her chest and feels like she can't get a full amount of air in. She denies any chest pain. She does admit to a cough is nonproductive. No fevers or chills at home however states that she does feel warm and febrile here. She denies any nausea, vomiting, or diarrhea. She states that her sister recently tested positive for Covid and lives in the house with her.she denies any other acute complaints. - Related Data Home Medications Medication Instructions Recorded Confirmed Acyclovir 400 mg PO BID 11/05/19 11/05/19 Fluticasone Nasal [place] [Flonase 2 spray EA NOSTRIL DAILY 11/05/19 11/05/19 Nasal [place]] Ibuprofen [Motrin] 800 mg PO BID PRN 11/05/19 11/05/19 Previous Rx's Medication Instructions Recorded ALPRAZolam [Xanax] 0.5 mg PO TID PRN #21 tab 11/10/19 Benztropine Mesylate [Cogentin] 0.5 mg PO BID 14 Days tab 11/10/19 Sertraline HCl [Zoloft] 200 mg PO DAILY 14 Days tab 11/10/19 cloZAPine [Clozaril] 150 mg PO HS 7 Days tab 11/10/19 haloperidoL [Haldol] 5 mg PO DAILY 14 Days tab 11/10/19 lamoTRIgine [LaMICtal] 200 mg PO BID 14 Days tab 11/10/19 Albuterol Inhaler [Ventolin Hfa 1 puff INHALATION RT-QID PRN #1 01/22/20 Inhaler] inhaler Allergies Allergy/AdvReac Type Severity Reaction Status Date / Time codeine Allergy Unknown Hallucinati Verified 11/05/19 16:55 ons/Itching adhesive tape Allergy Rash/Hives Verified 11/05/19 16:55 Iodinated Contrast Media Allergy Rash/Hives Verified 11/05/19 16:55 [Iodinated Contrast- Oral and IV Dye] latex Allergy Rash/Hives Verified 11/05/19 16:55 Review of Systems ROS Statement: Those systems with pertinent positive or pertinent negative responses have been documented in the HPI. ROS Other: All systems not noted in ROS Statement are negative. Past Medical History Past Medical History: Thyroid Disorder Additional Past Medical History / Comment(s): Pt reports hypothyroid, genital herpes, and bilateral leg swelling. History of Any Multi-Drug Resistant Organisms: None Reported, MRSA Date of last positivie culture/infection: 2007 MDRO Source:: abdomina, and axillary Past Surgical History: Section, Cholecystectomy Additional Past Surgical History / Comment(s): Patient states she is going for a colonscopy 10/12/2015 due to loose stools Past Anesthesia/Blood Transfusion Reactions: No Reported Reaction Past Psychological History: Bipolar, Depression, Schizophrenia Smoking Status: Current every day smoker Past Alcohol Use History: None Reported Past Drug Use History: None Reported, Marijuana - Past Family History Family Family Medical History: No Reported History General Exam - General Exam Comments Initial Comments: Constitutional: [Awake alert] [Appears comfortable] Head: [Normocephalic atraumatic] Eyes: [no conjunctival injection] [No scleral icterus] [EOMI] Neck: [No JVD] [Supple] Heart: [Regular rate rhythm] [normal S1-S2] [no murmurs] Lungs: [Clear to auscultation bilaterally] Mild wheezing [No rales] no tachypnea Abdomen: [Soft] [nondistended] [nontender] Extremities: [Non edematous] [DP pulses intact] [Radial pulses intact] Neuro: [A&Ox3] [No focal neurologic deficits] Psych: [Appropriate mood and affect] Limitations: no limitations Course Vital Signs 01/22/20 01/22/20 01/22/20 18:09 18:58 20:08 Temperature 100.6 F H 99.4 F Pulse Rate 93 86 Respiratory 18 18 18 Rate Blood Pressure 126/90 119/73 O2 Sat by Pulse 99 98 Oximetry - Reevaluation(s) Reevaluation #1: 01/22/20 21:34 EKG is showing normal sinus rhythm with a rate of 77. There is no abnormal ST segment changes or T-wave inversions. QTC is 405. Other intervals normal. No ectopy. Medical Decision Making - Medical Decision Making is a 44-year-old female who presents emergency department for worsening dyspnea. The patient was evaluated with blood work, chest x-ray, and EKG all of which were unremarkable. I did get the patient up and ambulate her and she did not have any desaturations. Chest x-ray did not reveal any infiltrates.:Covid did come back positive. She was instructed to take vitamin D and zinc. She was instructed to monitor her respiratory status. I did give her an inhaler that she can use as needed. Follow-up with her with her primary doctor. Return emergency Department if she has worsening shortness of breath. All questions answered. - Lab Data Result diagrams: 01/22/20 18:52 01/22/20 18:52 Lab Results 01/22/20 01/22/20 01/22/20 Range/Units 18:52 18:52 18:52 WBC 6.2 (3.8-10.6) k/uL RBC 4.86 (3.80-5.40) m/uL Hgb 14.3 (11.4-16.0) gm/dL Hct 42.8 (34.0-46.0) % MCV 88.0 (80.0-100.0) fL MCH 29.4 (25.0-35.0) pg MCHC 33.5 (31.0-37.0) g/dL RDW 13.6 (11.5-15.5) % Plt Count 263 (150-450) k/uL Neutrophils % 64 % Lymphocytes % 24 % Monocytes % 7 % Eosinophils % 1 % Basophils % 3 % Neutrophils # 3.9 (1.3-7.7) k/uL Lymphocytes # 1.5 (1.0-4.8) k/uL Monocytes # 0.4 (0-1.0) k/uL Eosinophils # 0.1 (0-0.7) k/uL Basophils # 0.2 (0-0.2) k/uL Sodium 139 (137-145) mmol/L Potassium 4.0 (3.5-5.1) mmol/L Chloride 106 (98-107) mmol/L Carbon Dioxide 27 (22-30) mmol/L Anion Gap 6 mmol/L BUN 12 (7-17) mg/dL Creatinine 0.85 (0.52-1.04) mg/dL Est GFR (CKD-EPI)AfAm >90 (>60 ml/min/1.73 sqM) Est GFR (CKD-EPI)NonAf 84 (>60 ml/min/1.73 sqM) Glucose 83 (74-99) mg/dL Calcium 9.0 (8.4-10.2) mg/dL Total Bilirubin 0.3 (0.2-1.3) mg/dL AST 20 (14-36) U/L ALT 12 (4-34) U/L Alkaline Phosphatase 78 (38-126) U/L Total Protein 6.8 (6.3-8.2) g/dL Albumin 3.8 (3.5-5.0) g/dL Coronavirus (PCR) Detected A (Not Detectd) Disposition Clinical Impression: COVID-19 Disposition: HOME SELF-CARE Condition: Stable Instructions (If sedation given, give patient instructions): Acute Bronchitis (ED) Prescriptions: Albuterol Inhaler [Ventolin Hfa Inhaler] 1 puff INHALATION RT-QID PRN #1 inhaler PRN Reason: Shortness Of Breath Is patient prescribed a controlled substance at d/c from ED?: No Referrals: Dominic Mulligan, [Primary Care Provider] - 1-2 days
[2020-01-22 20:12] VITALS: BP 119/73; PULSE 86; TEMP 99.4
== END 2020-01-22 20:14 | disposition home or self-care (01) ==
LOC: EC 18:03
DX: U07.1 COVID-19 (principal); E03.9 Hypothyroidism, unspecified; F17.200 Nicotine dependence, unspecified, uncomplicated; Z79.51 Long term (current) use of inhaled steroids; Z88.5 Allergy status to narcotic agent; Z91.040 Latex allergy status; Z91.048 Other nonmedicinal substance allergy status
CPT/HCPCS: 36415; 71045; 80053; 85025; 87635; 93005; 99285

== ENCOUNTER → 2020-07-12 | Outpatient (CLI) | payer OTHER ==
[2020-07-12 10:35] VITALS: BP 129/87; PULSE 80; RESP 18; TEMP 98.5
--- NOTE | 2020-07-12 11:18 | P.GSHP ---
History of Present Illness H&P Date: 07/12/20 Chief Complaint: Mammographic abnormality left breast Heather is a 44 year old white female seen in consultation for Dr. Mulligan regarding the mammographic abnormality in the left breast. She had a bilateral mammogram performed on . No lesions of concern were noted in the right breast. In the left breast a smoothly marginated oval shaped nodule in the 4 o'clock position approximately 12 cm from the nipple was noted. The patient subsequently underwent an ultrasound which did not reveal any lesion of concern and it was recommended the patient undergo a stereotactic core biopsy of the area noted in the mammogram. The patient states she does not feel any lumps masses or nodules of concern in her breast. But she does have itching in the left breast posterior to the nipple areolar complex. She is not complaining of any pain in the breast. She does not complain of any trauma or infection in the breast. She has not had any prior surgery in the breast. She has not had the Covid vaccination. She did have COVID in January. Caffeine: 1 pot of coffee/day nicotine: 1 PPD chocolate: rare Family history: 2 Paternal aunt: lymphoma Paternal uncle: lymphoma aunt: Lung cancer Paternal grandmother: Lymphoma Hormonal history: Menarche: 12 , breast fed: no, age at first : 21 has not had a period for 5 years; may be related to medication BCP: none hormones: none Surgical History: 2 MRASA left upper stomach Gallbladder Medical History: [place] schizophrenic Anxiety/depression Social History: smoke: 1 pack per day Alcohol: Negative Drugs: Negative - Constitutional Constitutional: Reports sweats - EENT Comment: seeing neurologist September 13, pain in left side of head Eyes: left blurred vision Ears: deny: decreased hearing, tinnitus Ears, nose, mouth and throat: Reports headache - Breasts Breasts: bilateral: as per HPI - Cardiovascular Cardiovascular: Denies chest pain, Denies shortness of breath - Respiratory Respiratory: Reports cough - Gastrointestinal Gastrointestinal: Denies abdominal pain, Denies diarrhea, Denies nausea, Denies vomiting - Genitourinary (Female) Genitourinary: Denies dysuria, Denies hematuria - Menstruation Menstruation: Reports postmenopausal - Musculoskeletal Musculoskeletal: Reports muscle cramps - Integumentary Integumentary: Reports as per HPI - Neurological Neurological: Denies numbness, Denies weakness - Psychiatric Psychiatric: Reports as per HPI, Reports anxiety, Reports depression - Endocrine Endocrine: Reports fatigue, Reports weight change - Hematologic/Lymphatic Comment: none - Allergic/Immunologic Allergic/Immunologic: Reports as per HPI Past Medical History Past Medical History: Thyroid Disorder Additional Past Medical History / Comment(s): Pt reports hypothyroid, genital herpes, and bilateral leg swelling. History of Any Multi-Drug Resistant Organisms: None Reported, MRSA Date of last positivie culture/infection: 2007 MDRO Source:: abdomina, and axillary Past Surgical History: Section, Cholecystectomy Additional Past Surgical History / Comment(s): Patient states she is going for a colonscopy 10/12/2015 due to loose stools Past Anesthesia/Blood Transfusion Reactions: No Reported Reaction Past Psychological History: Bipolar, Depression, Schizophrenia Smoking Status: Current every day smoker Past Alcohol Use History: None Reported Past Drug Use History: None Reported, Marijuana Additional Drug Use History / Comment(s): Smoked Marijuana 6 months ago, doesnt smoke anymore - Past Family History Family Family Medical History: No Reported History Medications and Allergies Home Medications Medication Instructions Recorded Confirmed Type Acyclovir 400 mg PO BID 11/05/19 07/12/20 History Ibuprofen [Motrin] 800 mg PO BID PRN 11/05/19 07/12/20 History ALPRAZolam [Xanax] 0.5 mg PO TID PRN #21 tab 11/10/19 07/12/20 Rx Benztropine Mesylate [Cogentin] 0.5 mg PO BID 14 Days tab 11/10/19 07/12/20 Rx Sertraline HCl [Zoloft] 200 mg PO DAILY 14 Days tab 11/10/19 07/12/20 Rx haloperidoL [Haldol] 5 mg PO DAILY 14 Days tab 11/10/19 07/12/20 Rx lamoTRIgine [LaMICtal] 200 mg PO BID 14 Days tab 11/10/19 07/12/20 Rx Albuterol Inhaler [Ventolin Hfa 1 puff INHALATION RT-QID PRN #1 01/22/20 07/12/20 Rx Inhaler] inhaler Allergies Allergy/AdvReac Type Severity Reaction Status Date / Time codeine Allergy Unknown Hallucinati Verified 07/12/20 10:30 ons/Itching adhesive tape Allergy Rash/Hives Verified 07/12/20 10:30 Iodinated Contrast Media Allergy Rash/Hives Verified 07/12/20 10:30 [Iodinated Contrast- Oral and IV Dye] latex Allergy Rash/Hives Verified 07/12/20 10:30 Surgical - Exam Vital Signs Temp Pulse Resp BP Pulse Ox 98.5 F 80 18 129/87 95 07/12/20 10:32 07/12/20 10:32 07/12/20 10:32 07/12/20 10:32 07/12/20 10:32 BMI 53.7 - General obese - Eyes normal ocular movement - ENT normal pinna, normal mucosa - Neck no masses, trachea midline - Respiratory normal expansion, normal respiratory effort, clear to auscultation - Cardiovascular Rhythm: regular Heart Sounds: normal: S1, S2 - Abdomen Abdomen: soft, non tender, no guarding, no rigid, no rebound - Integumentary normal turgor - Neurologic no disoriented, no combative - Musculoskeletal normal gait - Psychiatric oriented to time, oriented to person, oriented to place, speech is normal, mem ory intact breast exam: BRA: 46 DDD inspection: grade 3 ptosis bilateral palpation: Right breast multi-positional exam fibrocystic changes, no dominant masses or nodules of concern Right axilla: No adenopathy of concern Left breast: Multi-positional exam fibrocystic changes, sensation of increased fullness in the upper outer quadrant region but no discrete mass Left axilla: No adenopathy of concern Results Impression: 1. Radiographic abnormality left breast 2. Fibrocystic breast changes bilateral 3. Family history of cancer 4. Slight fullness left breast upper outer quadrant area 5. Anxiety/depression, schizophrenia, bipolar 6. Nicotine dependence, caffeine intake noted have discussed that this may exacerbate fibrocystic changes 7. Morbid obesity 340 pounds Plan: 1. Stereotactic core biopsy left breast at [facility] as our stero-table will not accomodate > 300 pounds 2. Follow up after results of this 3. Encouraged to stop smoking and decrease caffeine intake Risks and benefits of the procedure discussed with the patient and her son. They understand and wish to proceed. Risks include but are not limited to bleeding, infection, reaction to the anesthetic. Additionally it is possible that the area would not be seen on the stereotactic core biopsy table and an additional evaluation would have to be performed.
== END ==
LOC: WWCWWP 09:47
PROVIDERS: ATTEND Surgery
DX: R92.8 Other abnormal and inconclusive findings on diagnostic imaging of breast (principal); N60.12 Diffuse cystic mastopathy of left breast; N60.11 Diffuse cystic mastopathy of right breast; N64.89 Other specified disorders of breast; F17.200 Nicotine dependence, unspecified, uncomplicated; F31.9 Bipolar disorder, unspecified; F20.9 Schizophrenia, unspecified; E03.9 Hypothyroidism, unspecified; E66.01 Morbid (severe) obesity due to excess calories; Z80.9 Family history of malignant neoplasm, unspecified; Z68.43 Body mass index [BMI] 50.0-59.9, adult

== ENCOUNTER → 2020-08-09 | Outpatient (CLI) | payer OTHER ==
[2020-08-09 10:23] VITALS: BP 112/82; PULSE 79; RESP 18; TEMP 98.2
--- NOTE | 2020-08-09 10:51 | P.PN ---
Subjective Progress Note Date: 08/09/20 Principal diagnosis: Fibrocystic changes noted on stereo biopsy of left breast There is a 44-year-old white female status post left breast stereotactic core biopsy at [facility] on . Pathology revealed fragments of breast tissue showing mild fibrocystic changes with intraductal and epithelial associated microcalcifications. This was felt to be concordant as per radiology with the area of concern. The patient tolerated the procedure with no difficulty. Objective - Vital Signs Vital signs: Vital Signs Temp 98.2 F 08/09/20 10:20 Pulse 79 08/09/20 10:20 Resp 18 08/09/20 10:20 BP 112/82 08/09/20 10:20 Pulse Ox 99 08/09/20 10:20 Intake & Output 08/08/20 08/09/20 08/09/20 18:59 06:59 18:59 Weight 159.211 kg - Constitutional General appearance: Present: morbidly obese - EENT Eyes: Present: EOMI ENT: Present: hearing grossly normal - Respiratory Respiratory: bilateral: CTA - Cardiovascular Heart sounds: normal: S1, S2 - Integumentary Integumentary Comment(s): Biopsy site left breast clean and dry Evidence of infection or hematoma Assessment and Plan Assessment: Impression: 1. Patient status post left breast stereotactic core biopsy/pathology benign concordant 2. Family history of cancer 3. Fibrocystic breast changes 4. Anxiety/depression, schizophrenia, bipolar 6. Nicotine dependence, caffeine intake noted as well 7. BMI 55 Plan: 1. Patient encouraged to avoid nicotine caffeine and lose weight 2. Repeat left breast mammogram in 6 months with physician exam at that time 3. Patient will call sooner if any questions or concerns CC: Dr. Mulligan encounter: 1. Stable chronic illness: Fibrocystic breast changes 2. Review of external reports including pathology report and radiographic studies from other institution 2. Ordering of left breast mammogram in 6 months
== END ==
LOC: WWCWWP 09:46
PROVIDERS: ATTEND Surgery
DX: N60.12 Diffuse cystic mastopathy of left breast (principal); F41.9 Anxiety disorder, unspecified; F31.9 Bipolar disorder, unspecified; F20.9 Schizophrenia, unspecified; F17.200 Nicotine dependence, unspecified, uncomplicated; F15.20 Other stimulant dependence, uncomplicated; E66.01 Morbid (severe) obesity due to excess calories; Z80.9 Family history of malignant neoplasm, unspecified; Z68.43 Body mass index [BMI] 50.0-59.9, adult; Z88.5 Allergy status to narcotic agent; Z91.040 Latex allergy status; Z91.041 Radiographic dye allergy status; Z91.048 Other nonmedicinal substance allergy status

== ENCOUNTER → 2021-06-13 | Outpatient (CLI) | payer OTHER ==
--- NOTE | 2021-06-13 14:25 | P.CON ---
Consult Note - . Consult date: 06/13/21 Assessment/Plan:: HISTORY OF PRESENT ILLNESS: 45 yr old female as a referral from Dr Johnson presents today with neck pain secondary to spondylosis, disc bulges, spinal stenosis, and neuroforaminal stenoses for evaluation. Pt states her neck pain is 8 out of 10 in intensity, dull, achy, constant in the lower aspects of her cervical spine with shooting pain to the upper extremities bilaterally. Pain is also accompanied with occasional bilateral hand numbness. Pain escalates to 10 out of 10 in intensity with bending, rotating the neck or lifting. Pain is relieved with medications (ibuprofen from Dr. Mulligan), alternating ice and heat, physical therapy in January 2021 for 6 weeks which made the pain worse, daily home stretching regimen, repositioning and rest. PMH: Hypothyroidism, Sleep Apnea, Mood disorder PSH: Cholecystectomy, C section SH: +Tobacco use. Denies ETOH or illicit drug use. FH: PGF- Alcoholism. PGM- CA. All: See list Meds: See list REVIEW OF ORGAN SYSTEMS: CONSTITUTIONAL: No fevers or chills. No recent weight loss. HEENT: No visual acuity loss, eye pain, difficulties with hearing. No nosebleeds. No difficulty swallowing. RESPIRATORY: Denies any troubles with breathing or dyspnea on exertion. CARDIOVASCULAR: Denies any chest pain, palpitations, or recent heart attacks. GASTROINTESTINAL: Denies fatty food intolerance. Has change in bowel habits and gas bloat. GENITOURINARY: Denies any blood in urine. Has increased urinary frequency. NEUROLOGICAL: + numbness and tingling along the distal extremities. No seizure disorders or headaches. MUSCULOSKELETAL: + back pain SKIN: No skin cancer. No rash. PSYCHIATRIC: Denies current depression or suicidal thoughts. ENDOCRINE: Denies current thyroid disorders. Denies any blood sugar glucose intolerance. HEME/LYMPHATIC: Denies any lumps and bumps around the neck. History of deep venous thrombosis. ALLERGY/IMMUNOLOGY: No immunoglobulin therapy. No immune deficiencies. BREAST: Denies current breast lumps, pain or nipple discharge. Physical Examinations : Constitutional : Cooperative , not in acute distress . HEENT: Neck supple. No Lymphadenopathy. Normal thyroid size . Eyes no ptosis , no icterus, no photophobia . Hearing intact. Normal oropharynx. No Thrush. Respiratory : Chest clear to auscultations bilaterally. No wheezing. No rhonchi. Cardiovascular : Regular rate and rhythm , S1 / S2. No S3 . No S4. Gastrointestinal : Abdomen soft. No tenderness. Bowel sounds x 4. No organomegaly . Genitourinary : Deferred. Neurologic : Cranial nerve II to XII intact. No focal neurological deficits. Psychiatric : alert & oriented x 3. Matching mood & appropriate affect. Judgment & insight intact. Lymphatic No Lymphadenopathy. Musculoskeletal : Cervical Spine Motor strength in the deltoid and biceps: Normal right side. Normal Left side Motor strength biceps and the wrist extensors: Normal right side . Normal left side Motor strength in the triceps muscle: Normal right side. Normal left side Deep tendon reflexes: Normal at the biceps. Normal at Brachioradialis. Normal at triceps Vertebral body tenderness over C6 Cervical facet loading test: positive bilaterally Spurling test: positive bilaterally Neck distraction test: positive bilaterally Talia sign: positive bilaterally Lumbar spine Motor strength lower extremities ,thigh and legs 5/5 Right side , 5/5 Left side Deep tendon reflexes : Normal Knee Jerk. Normal Ankle Jerk Vertebral body tenderness over Lumbar facet Loading Test: positive Right / positive Left Range of motion of the lumbar spine Flexion 30 degrees, extension 10 degrees Straight Leg Raise test: Left/ Right positive at degree Maxime test: positive right / positive left. Severe tenderness over the Sacroiliac joint on the Right / Left sides Gaenslen test: positive bilaterally Seated flexion test: positive bilaterally. Assessment/ Plan : Recommendation of CHRIS C6-C7. May need a series of injections, up to 3 within a six-month period, for optimal pain relief. Risks, benefits of procedure discussed and patient verbalized understanding. Denies aspirin or anti- coagulant use. Denies medical history of diabetes. All questions answered. I have spent greater than 50 minutes on patient care today. Dr Rice was available by phone for the evaluation of this patient. The time was used to review the medical records including relevant urine studies and Prescription history (MAPs), review of the available imaging, evaluation and examination of the patient, coordination of care with the medical staff and if applicable refe rring physicians, as well as creation of the medical record PQRS Measure Charge Sheet - Pain Location Neck Non-Pharmacological Interventions: Heat, Home Exercise, Ice, Physical Therapy, Position/Reposition, Relaxation Technique, Stretching Pharmacological Interventions: PRN Medication PQRS Narrative: Smoking Status Current every day smoker Pain Intensity [Neck] 8 Scale Used Numeric (1 - 10) Hx Alcohol Use (MH) No Home Medications: Ambulatory Orders Ibuprofen [Motrin] 800 mg PO BID PRN 11/05/19 Benztropine Mesylate [Cogentin] 0.5 mg PO BID 14 Days tab 11/10/19 Sertraline HCl [Zoloft] 200 mg PO DAILY 14 Days tab 11/10/19 haloperidoL [Haldol] 5 mg PO DAILY 14 Days tab 11/10/19 lamoTRIgine [LaMICtal] 200 mg PO BID 14 Days tab 11/10/19 Albuterol Inhaler [Ventolin Hfa Inhaler] 1 puff INHALATION RT-QID PRN #1 inhaler 01/22/20 ALPRAZolam [Xanax] 1 mg PO BID 06/12/21 Brexpiprazole [Rexulti] 4 mg PO DAILY 06/12/21 Furosemide [Lasix] 40 mg PO DAILY 06/12/21 Gabapentin [Neurontin] 100 mg PO BID 06/12/21 Venlafaxine HCl [Effexor] 50 mg PO DAILY 06/12/21 HYDROcodone/APAP 5-325MG [[place] 5-325] 1 tab PO Q12HR PRN 30 Days #60 tab 06/13/21
[2021-06-13 14:31] VITALS: BP 147/82; PULSE 80; RESP 18; TEMP 98.3
== END ==
LOC: PNWHC3 13:00
PROVIDERS: ATTEND Specialist
DX: M47.812 Spondylosis without myelopathy or radiculopathy, cervical region (principal); M48.02 Spinal stenosis, cervical region; M50.20 Other cervical disc displacement, unspecified cervical region; E03.9 Hypothyroidism, unspecified; F17.200 Nicotine dependence, unspecified, uncomplicated; Z88.5 Allergy status to narcotic agent; Z91.041 Radiographic dye allergy status; Z91.048 Other nonmedicinal substance allergy status
CPT/HCPCS: 99211

== ENCOUNTER 2021-07-16 09:51 | Day surgery (SDC) | payer OTHER ==
[2021-07-15 10:26] VITALS: BMI 55.1
[~2021-07-16 09:51] MED LIST: LACTATED RINGERS 1,000 ML IV SCH
[2021-07-16 10:14] VITALS: TEMP 97.1
[2021-07-16] MEDS ORDERED: LIDOCAINE 1% (10MG/ML) FOR IV START INTRADERMA ONE (10:26)
[2021-07-16] MEDS ORDERED: MIDAZOLAM 2 MG/2 ML VIAL ONE (10:34)
[2021-07-16] MEDS ORDERED: fentaNYL (PF) 50 MCG/ML 2 ML AMP ONE (10:34)
[2021-07-16] MEDS ORDERED: DEXAMETHASONE SOD PHOSPHATE 10 MG/ML 1 ML VIAL ONE (10:34)
--- NOTE | 2021-07-16 10:54 | P.PCN ---
Date of Procedure: 07/16/21 Description of Procedure: Pre- and Post-operative Diagnosis: Cervical spondylosis without myelopathy, and Cervical radiculopathy Procedure: C6-C7 Inter-Laminar Cervical Epidural Steroid Injection under biplanar fluoroscopy Surgeon: Paola Cheng Anesthesia: Local: 1% Lidocaine, IV sedation : Midazolam, And fentanyl. Complications: None. Estimated blood loss: None Specimens removed: None Fluoroscopic image: saved to electronic medical records. Indications for Procedure: The patient has been suffering from neck pain and pain radiating to the upper extremity . Inadequate pain control with pharmacologic regimen. An inter-laminar approach cervical epidural steroid in jection was scheduled for the patient. Procedure and Findings: The patient was seen and examined in the holding area. The written informed consent was obtained after explaining the risks, benefits, alternatives of the procedure to the patient. The patient was brought to the procedure room and was placed in the prone position on the operating table. A pillow was placed under the upper chest. S tandard anesthesia monitoring was done through out the procedure. Timeout was completed. The skin preparation was done with ChloraPrep 1 and draping was done in usual sterile fashion. Sterile technique was observed throughout the procedure. Under fluoroscopic guidance, the C6-C7 inter-laminar space was identified. 3 ml of 1% Lidocaine was injected with a 25 gauge needle to achieve adequate local anesthesia of the skin and subcutaneous tissue. A 18 gauge, 3.5 inch Tuohy type epidural needle was placed and gradually advanced up to the epidural space using loss of resistance technique and fluoroscopic guidance. Lateral, oblique fluoroscopic views confirm the needle position. No paresthesia was noted. A negative aspiration was confirmed for any intrathecal, or intravascular spread. A total of 5 ml solution containing 10 mg Dexamethasone, and 4 ml preservative-free Normal Saline was injected slowly with intermittent aspiration. The needle was removed intact, area was cleaned and bandage was applied. No IV contrast injected as patient is ALLERGIC to iodine.. Disposition : The patient tolerated the procedure very well. The patient was transferred to the recovery room and remained stable until discharged home. The patient was given detailed discharge instructions for bleeding, infection, increased pain at the injection site, and was advised to seek immediate medical attention should significant side effects develop. The patient will be followed up with our Pain Clinic within 4 weeks for follow-up visit Note: 18-gauge 3-1/2 inch Tuohy epidural needle used for the procedure as 20- gauge Touhy needle back ordered.
[2021-07-16] MEDS ORDERED: IV FLUID CONTINUATION 1,000 ML IV ONE ×2 (10:56)
[2021-07-16 11:01] VITALS: RESP 16
[2021-07-16 11:15] VITALS: BP 122/85; PULSE 65
--- NOTE | 2021-07-16 11:16 | FL ---
Fluoroscopy HISTORY: Pain 5 seconds fluoroscopy time supplied to the referring clinician. 3 intraoperative C-arm images docume nt the procedure. See dictated report from anesthesia.
== END 2021-07-16 11:27 | disposition home or self-care (01) ==
LOC: ORPAIN 09:51 → EEVIPCON 11:00 → ORPAIN 11:27
DX: M47.812 Spondylosis without myelopathy or radiculopathy, cervical region (principal)
CPT/HCPCS: 62321; J2250; J1100; J3010; 99152

== ENCOUNTER → 2021-08-14 | Outpatient (CLI) | payer OTHER ==
[2021-08-14 13:55] VITALS: BP 146/86; PULSE 85; RESP 18; TEMP 99
--- NOTE | 2021-08-14 13:55 | P.PN ---
Subjective Progress Note Date: 08/14/21 Principal diagnosis: A 45 yr old female with a history of severe and chronic neck pain secondary to cervical degenerative disc diseases and spondylosis with facet arthropathy presents today for evaluation status post CHRIS C6-C7 1 and medication refills. She states she experienced 80% pain relief for 2 weeks status post procedure. Pain level is currently at 7 out of 10 in intensity, pulsating, grinding, achy in character with radiation of pain to the shoulders and the upper extremities. She no longer feels numbness in her hands and her upper extremities status post procedure. Pain is provoked by inactivity. Pain is alleviated with medications (Arnold, ibuprofen), injections, ice, heat, physical therapy in 2020 but she felt increased pain after treatment, daily home stretching regimen, repositioning and rest. Interventional pain procedures completed include CHRIS C6-C7 1 Patient is currently on Arnold 5/325 Patient denies any side effects of the medication(s), denies excessive drowsiness or sleepiness, denies suicidal ideation and reports that the current pain medication is helping to control the pain and improve activities of daily living. Patient denies any motor or sensory deficits. Patient denies any fever or night sweats, denies any change in the bowel movements or urination. Physical Examination: -Constitutional: Cooperative. Not in acute distress . -HEENT: Neck is supple. No lymphadenopathy. No thyromegaly. Normal thyroid size. Eyes: No ptosis , no icterus, no photophobia. ENT: No auditory deficits. Normal oropharynx. No Thrush. - Respiratory: Chest clear to auscultations bilaterally. No wheezing. No rhonchi. - Cardiovascular: Regular rate and rhythm. S1 / S2 , no S3 , no S4. - Gastrointestinal: Abdomen soft no tenderness. Bowel sounds positive in all four quadrants. No organomegaly. - Genitourinary: Deferred. - Neurologic: Cranial nerve II to XII intact. No focal neurological deficits. - Psychatric: Alert & oriented x 3. Matching mood & appropriate affect. Judgment and insight intact. - Lymphatic: No Lymphadenopathy. - Musculoskeletal: Cervical spine: Muscle bulk/ tone/ strength in the bilateral upper extremities normal Vertebral body tenderness to palpation over C6 Spurling test positive Distraction test positive Facet loading test positive Thoracic spine Muscle bulk / tone/ strength in the bilateral paraspinal muscles normal Vertebral body tender to palpation over Facet loading test positive Lumbar spine: Motor bulk/ tone/ strength lower extremities , thigh and legs : 5/5 Deep tendon reflexes : Normal Knee Jerk. Normal Ankle Jerk . Vertebral body tenderness to palpation over Lumbar Facet Loading Test positive Straight Leg Raise: positive at 30 degrees right side/ left side Gaenslen's Test positive Sacral spine : Severe tenderness over the Sacroiliac joint: right side / left side Range of motion: Flexion of the lumbar spine <60 degrees Range of motion: Extension of the lumbar spine <20 degrees Gaenslen's Test positive Zion's Test positive Maxime test: positive right side / left side Thigh Thrust Test Sacral Thrust Test Assessment and plan: Chronic neck pain secondary to degenerative disc disease , spondylosis with facet arthropathy without myelopathy Recommendation of CHRIS C6-C7 #2. May need a series of injections, up to 3 within a 6 mo period, for optimal pain relief. Risks, benefits of procedure discussed and pt verbalized understanding. Denies anticoagulant use or medical history of diabetes. Chronic and current use of high-risk medication (Opioids). The patient was counseled about risk of opioid use, psychological risk associated with opioids and was orally counseled to not overuse , divert or sell medications. Pt is to store medication in a safe location. The patient is counseled against driving while using narcotic medications and also not to use alcohol or any illicit recreational drugs. Patient verbalized understanding that the lack of compliance will result in failure to renew narcotic prescription(s) as well as possible discharge from the clinic Diagnoses, prognosis and treatment options including but not limited to physical therapy, surgical interventions, interventional therapies and medication management including narcotics and adjuvant medication were discussed. All patient questions answered MAPS reviewed and it was appropriate. Opiate agreement signed and up to date. Prescription refill for Arnold 5/325mg #60 w 1 refill. Will collect urine for UDS at next visit. I have spent 31 minutes on patient care today. Dr Rice was available by phone for the evaluation of this patient. The time was used to review the medical records including relevant urine studies and Prescription history (MAPs), review of the available imaging, evaluation and examination of the patient, coordination of care with the medical staff and if applicable referring physicians, as well as creation of the medical record PQRS Measure Charge Sheet Mode of Arrival: Ambulatory PQRS Narrative: Smoking Status Current every day smoker Blood Pressure 146/86 Pain Intensity [Bilateral 7 Upper Neck] Scale Used Numeric (1 - 10) Hx Alcohol Use (MH) No Home Medications: Ambulatory Orders Ibuprofen [Motrin] 800 mg PO BID PRN 11/05/19 Benztropine Mesylate [Cogentin] 0.5 mg PO BID 14 Days tab 11/10/19 Sertraline HCl [Zoloft] 200 mg PO DAILY 14 Days tab 11/10/19 haloperidoL [Haldol] 5 mg PO DAILY 14 Days tab 11/10/19 lamoTRIgine [LaMICtal] 200 mg PO BID 14 Days tab 11/10/19 Albuterol Inhaler [Ventolin Hfa Inhaler] 1 puff INHALATION RT-QID PRN #1 inhaler 01/22/20 ALPRAZolam [Xanax] 1 mg PO BID 06/12/21 Brexpiprazole [Rexulti] 4 mg PO DAILY 06/12/21 Furosemide [Lasix] 40 mg PO DAILY 06/12/21 Gabapentin [Neurontin] 100 mg PO BID 06/12/21 HYDROcodone/APAP 5-325MG [[place] 5-325] 1 tab PO Q12HR PRN 30 Days #60 tab 08/14/21 HYDROcodone/APAP 5-325MG [[place] 5-325] 1 tab PO Q6HR PRN 30 Days #60 tab 08/14/21
== END ==
LOC: PNWHC3 13:09
PROVIDERS: ATTEND Specialist
DX: M50.30 Other cervical disc degeneration, unspecified cervical region (principal); M47.812 Spondylosis without myelopathy or radiculopathy, cervical region; G89.29 Other chronic pain; Z79.891 Long term (current) use of opiate analgesic; F17.200 Nicotine dependence, unspecified, uncomplicated; Z91.048 Other nonmedicinal substance allergy status; Z91.041 Radiographic dye allergy status; Z91.040 Latex allergy status
CPT/HCPCS: 99211

== ENCOUNTER → 2021-10-09 | Outpatient (CLI) | payer OTHER ==
[2021-10-09 10:56] VITALS: BP 137/83; PULSE 81; RESP 18; TEMP 98.1
--- NOTE | 2021-10-09 11:19 | P.PN ---
Subjective Progress Note Date: 10/09/21 This is a follow-up visit for this 45 years old female with a chronic history of severe neck pain with radiation to the upper extremity bilaterally associated with numbness and tingling sensation, she is diagnosed with cervical radiculopathy and cervical spondylosis with cervical facet arthropathy, previou sly we have done cervical epidural steroid injection and she reported that she had good benefit from it but he could not do another injection because patient had a blood clot in her upper extremity and she has to be on xarelto, she is here for medication refill she is on [place] 5/325 every 12 hours when necessary and she is on Neurontin 100 mg daily, the patient given by her neurologist, could not tolerate higher dose of Neurontin, he reported that she feels severe neck pain and severe numbness tingling in her upper extremity and the intensity of the pain interfering with her quality of life and daily activity Objective - Vital Signs Vital signs: Vital Signs Temp 98.1 F 10/09/21 10:41 Pulse 81 10/09/21 10:41 Resp 18 10/09/21 10:41 BP 137/83 10/09/21 10:41 Pulse Ox 100 10/09/21 10:41 FiO2 Intake & Output 10/08/21 10/09/21 10/09/21 18:59 06:59 18:59 Weight 154.221 kg - Exam Physical Examinations : -Constitutiona : Cooperative , not in acute distress . -HEENT : nech : supple , no Lymphadenopathy , normal thyroid size . : eyes : no ptosis , no icterus, no photophobia . - neurologic : Cranial nerve II to XII intact , no focal neurological deffecit . -psychatric : alert , oriented X 3 , appropriate affect , intact judgment and insight . -Lymphatic : no Lymphadenopathy . - musculoskeltal : Cervical Spine motor stregnth in the deltoid and biceps, normal right side , normal Left side motor stregnth biceps and the wrist extensors normal right side ,normal left side . motor stregnth in the triceps muscle . normal Right side , normal Left side deep tendon reflexes normal at the biceps , normal at Brachioradialis , normal at triceps. cervical facet loading test: Positive Bilaterally Spurling test= positive Right , positive left. Neck distraction test= positive Right , positive left. Talia sign= positive right, positive left . Lumber spine moter stegnth lower extremities ,thigh and legs 5/5 Right side , 5/5 Left side Assessment and Plan Plan: Assessment and plan= chronic severe neck pain with radiation to the upper extremity secondary to cervical radiculopathy and cervical spondylosis with cervical facet arthropathy. chronic and current use of high-risk medication (opioids) Patient denies any side effects of the current pain medication and the current treatment/medication helping the patient to do activity of daily living , Diagnoses, prognosis, treatment options, including but not limited to physical therapy, medication management, interventional therapies, and surgery, were discussed with the patient All the questions answered The narcotic consent was signed and patient agreed and understood the side effects and complications of opioid treatment. Patient signed the narcotic agreement, and was orally counseled, not to overuse, not to abuse, not to Divert , not tp sell pain medication, and to take it as prescribed only, Patient was counseled not to drive or operate heavy equipment while using narcotic medication, and advised not to use alcohol or any Illicit drugs while using the narcotis. understanding that lack of compliance with any of the above instructions, will likely to cause discharge from, the pain service, not to renew his narcotic prescriptions MAPS Reviwed and it was apropriate . Medication managements= recommend to discontinue [place] 5/325 I will start patient on [place] 7.5/325 every 12 hours when necessary dispense 60 with 1 refill And we'll continue her Neurontin 100 mg daily as prescribed by her neurologist, as with the patient the option of increasing the Neurontin dose but she is concerned about the side effect ( the higher dose made her very sleepy ) The future after patient can stop her blood thinner , we can schedule her for a repeat cervical epidural steroid injection Time with Patient: Less than 30
== END ==
LOC: PNWHC3 09:46
PROVIDERS: ATTEND Specialist
DX: G89.29 Other chronic pain (principal); M47.22 Other spondylosis with radiculopathy, cervical region; Z79.891 Long term (current) use of opiate analgesic; Z91.048 Other nonmedicinal substance allergy status; Z91.041 Radiographic dye allergy status; Z91.040 Latex allergy status
CPT/HCPCS: 80307; G0482; G0463; 99212

== ENCOUNTER → 2021-12-19 | Outpatient (CLI) | payer OTHER ==
[2021-12-19 10:09] VITALS: BP 118/77; PULSE 68; RESP 18; TEMP 98.5
--- NOTE | 2021-12-19 14:50 | P.PAINPG ---
Objective - Vital Signs Vital signs: Intake & Output 12/18/21 12/19/21 12/19/21 18:59 06:59 18:59 Weight 136.985 kg PQRS Measure Charge Sheet Comment: A 46 yr old female with a history of severe and chronic neck pain x 3 yrs secondary to cervical degenerative disc diseases and spondylosis with facet arthropathy without myelopathy presents today for medication refills and evaluation s/p C6-C7. Pt states she experienced % pain relief x wks s/p procedure. Pain level is currently at 8/10 in intensity, constant, mid to lower cervical spine, dull/ achy/ sharp/ shooting towards the BL shoulders w RUE numbness. Pain is provoked by rotation and bending. Pain is alleviated with heat, medications (Ibu, Neurontin, [place]), Pt x 6 wks in Dec 2020, repositioning and rest. Interventional pain procedures completed include RANDALL C6-7 x1. Patient is currently on [place] 7.5/325mg #60, Neurontin 100mg #30 Patient denies any side effects of the medication(s), denies excessive drowsiness or sleepiness, denies suicidal ideation and reports that the current pain medication is helping to control the pain and improve activities of daily living. Patient denies any motor or sensory deficits. Patient denies any fever or night sweats, denies any change in the bowel movements or urination. Physical Examination: -Constitutional: Cooperative. Not in acute distress . - Neurologic: Cranial nerve II to XII intact. No focal neurological deficits. - Psychatric: Alert & oriented x 3. Matching mood & appropriate affect. Judgment and insight intact. - Musculoskeletal: Cervical spine: Muscle bulk/ tone/ strength in the bilateral upper extremities normal Vertebral body tenderness to palpation over C6 Spurling test positive Distraction test positive Facet loading test positive Thoracic spine Muscle bulk / tone/ strength in the bilateral paraspinal muscles normal Vertebral body tender to palpation over Facet loading test positive Lumbar spine: Motor bulk/ tone/ strength lower extremities , thigh and legs : 5/5 Deep tendon reflexes : Normal Knee Jerk. Normal Ankle Jerk . Vertebral body tenderness to palpation over Lumbar Facet Loading Test positive Straight Leg Raise: positive at 30 degrees right side/ left side Gaenslen's Test positive Sacral spine : Severe tenderness over the Sacroiliac joint: right side / left side Range of motion: Flexion of the lumbar spine <60 degrees Range of motion: Extension of the lumbar spine <20 degrees Gaenslen's Test positive Zion's Test positive Maxime test: positive right side / left side Thigh Thrust Test Sacral Thrust Test Assessment and plan: Chronic neck pain secondary to cervical degenerative disc disease , spondylosis with facet arthropathy without myelopathy Recommendation of RANDALL C6-C7 #2. May need a series of injections, up to 4 within a 12 mo period, for optimal pain relief. Risks, benefits of procedure discussed and pt verbalized understanding. Admits to Ibuprofen use or medical history of diabetes. Protocol for discontinuation/ continuation of medications hammad procedure discussed. Chronic and current use of high-risk medication (Opioids). The patient was counseled about risk of opioid use, psychological risk associated with opioids and was orally counseled to not overuse , divert or sell medications. Pt is to store medication in a safe location. The patient is counseled against driving while using narcotic medications and also not to use alcohol or any illicit recreational drugs. Patient verbalized understanding that the lack of compliance will result in failure to renew narcotic prescription(s) as well as possible discharge from the clinic Diagnoses, prognosis and treatment options including but not limited to physical therapy, surgical interventions, interventional therapies and medication management including narcotics and adjuvant medication were discussed. All patient questions answered MAPS reviewed and it was appropriate. UDS from 10/04/21 reviewed and consistent. Prescription refill for [place] 7.5/325mg #60 w 1 RF I have spent less than 30 minutes on patient care today. Dr Rice was available by phone for the evaluation of this patient. The time was used to review the medical records including relevant urine studies and Prescription history (MAPs), review of the available imaging, evaluation and examination of the patient, coordination of care with the medical staff and if applicable referring physicians, as well as creation of the medical record PQRS Narrative: Smoking Status Current every day smoker Pain Intensity [Neck] 7 Hx Alcohol Use (MH) No Home Medications: Ambulatory Orders Ibuprofen [Motrin] 800 mg PO BID PRN 11/05/19 Benztropine Mesylate [Cogentin] 0.5 mg PO BID 14 Days tab 11/10/19 Sertraline HCl [Zoloft] 200 mg PO DAILY 14 Days tab 11/10/19 haloperidoL [Haldol] 5 mg PO DAILY 14 Days tab 11/10/19 lamoTRIgine [LaMICtal] 200 mg PO BID 14 Days tab 11/10/19 Albuterol Inhaler [Ventolin Hfa Inhaler] 1 puff INHALATION RT-QID PRN #1 inhaler 01/22/20 ALPRAZolam [Xanax] 1 mg PO BID 06/12/21 Brexpiprazole [Rexulti] 4 mg PO DAILY 06/12/21 Furosemide [Lasix] 40 mg PO DAILY 06/12/21 Gabapentin [Neurontin] 100 mg PO BID 06/12/21 HYDROcodone/APAP 7.5-325MG [[place] 7.5-325] 1 tab PO Q8H PRN 30 Days #60 tab 10/09/21 Apixaban [Eliquis] 5 mg PO BID 12/18/21 Budesonide-Formot 160-4.5 Mcg [Symbicort 160-4.5 Mcg Inhaler] 2 puff INHALATION BID 12/18/21 metFORMIN HCL 500 mg PO BID 12/18/21 Controlled Substance Measures - Controlled Substance Measures Is patient prescribed a controlled substance at discharge?: Yes When asked, does pt state using other controlled substances?: No If prescribed controlled substance>3 days was MAPS reviewed?: Yes If Rx opioid, was Start Talking consent form obtained?: Yes Was information provided regarding opioid addiction?: Yes
== END ==
LOC: PNWHC3 09:34
PROVIDERS: ATTEND Specialist
DX: M50.30 Other cervical disc degeneration, unspecified cervical region (principal); M47.812 Spondylosis without myelopathy or radiculopathy, cervical region; G89.29 Other chronic pain; F17.200 Nicotine dependence, unspecified, uncomplicated; Z91.048 Other nonmedicinal substance allergy status; Z91.040 Latex allergy status; Z91.041 Radiographic dye allergy status
CPT/HCPCS: 99211

== ENCOUNTER → 2022-02-13 | Outpatient (CLI) | payer OTHER ==
[2022-02-13 09:28] VITALS: BP 136/78; PULSE 67; RESP 18
--- NOTE | 2022-02-13 14:22 | P.PAINPG ---
PQRS Measure Charge Sheet Comment: A 46 yr old female with a history of severe and chronic neck pain secondary to cervical DDD and spondylosis with facet arthropathy without myelopathy presents today for medication refills. Her last CHRIS was in July 2021 where she experienced 75% pain relief x 2 wks s/p procedure. Pain level is currently at 8/10 in intensity, constant, localized in the mid to lower cervical spine, sharp in character w shooting towards the BL shoulders. Pain is provoked by hyperextension and rotation. Pain is alleviated with PT in Dec 2020, home exercise as tolerated, heat, medications, repositioning and rest. Interventional pain procedures completed include CHRIS C6-7 Patient is currently on [place] , Ibu 800mg Patient denies any side effects of the medication(s), denies excessive drowsiness or sleepiness, denies suicidal ideation and reports that the current pain medication is helping to control the pain and improve activities of daily living. Patient denies any motor or sensory deficits. Patient denies any fever or night sweats, denies any change in the bowel movements or urination. Physical Examination: -Constitutional: Cooperative. Not in acute distress . - Neurologic: Cranial nerve II to XII intact. No focal neurological deficits. - Psychatric: Alert & oriented x 3. Matching mood & appropriate affect. Judgment and insight intact. - Musculoskeletal: Cervical spine: Muscle bulk/ tone/ strength in the bilateral upper extremities normal Vertebral body tenderness to palpation over Spurling test positive over BL C4-C5, C5-C6 Distraction test positive Facet loading test positive Thoracic spine Muscle bulk / tone/ strength in the bilateral paraspinal muscles normal Vertebral body tender to palpation over Facet loading test positive Lumbar spine: Motor bulk/ tone/ strength lower extremities , thigh and legs : 5/5 Deep tendon reflexes : Normal Knee Jerk. Normal Ankle Jerk . Vertebral body tenderness to palpation over Lumbar Facet Loading Test positive Straight Leg Raise: positive at 30 degrees right side/ left side Gaenslen's Test positive Sacral spine : Severe tenderness over the Sacroiliac joint: right side / left side Range of motion: Flexion of the lumbar spine <60 degrees Range of motion: Extension of the lumbar spine <20 degrees Gaenslen's Test positive Maxime test: positive right side / left side Thigh Thrust Test Sacral Thrust Test Assessment and plan: Chronic neck pain secondary to cervical degenerative disc disease, spondylosis with facet arthropathy without myelopathy Recommendation of BL facet blocks of the medial branches C4-5, C5-6 #1. May need a series of injections, up until RFA, for optimal pain relief. Risks, benefits of procedure discussed and pt verbalized understanding. Admits to anticoagulant use or medical history of diabetes. Protocol for discontinuation/ continuation of medications hammad procedure discussed. Chronic and current use of high-risk medication (Opioids). The patient was counseled about risk of opioid use, psychological risk associated with opioids and was orally counseled to not overuse , divert or sell medications. Pt is to store medication in a safe location. The patient is counseled against driving while using narcotic medications and also not to use alcohol or any illicit recreational drugs. Patient verbalized understanding that the lack of compliance will result in failure to renew narcotic prescription(s) as well as possible discharge from the clinic Diagnoses, prognosis and treatment options including but not limited to physical therapy, surgical interventions, interventional therapies and medication management including narcotics and adjuvant medication were discussed. All patient questions answered MAPS reviewed and it was appropriate. UDS from 10/09/21 reviewed and consistent Prescription refill for [place] 10/325mg #60 w 1 RF I have spent less than 30 minutes on patient care today. Dr Rice was available by phone for the evaluation of this patient. The time was used to review the medical records including relevant urine studies and Prescription history (MAPs), review of the available imaging, evaluation and examination of the patient, coordination of care with the medical staff and if applicable referring physicians, as well as creation of the medical record - Pain Location Neck Non-Pharmacological Interventions: Heat, Home Exercise, Inactivity, Physical Therapy, Stretching Pharmacological Interventions: Epidural, PRN Medication PQRS Narrative: Smoking Status Current every day smoker Narcotic Agreement Date Signed 06/13/21 Hx Alcohol Use (MH) No Home Medications: Ambulatory Orders Ibuprofen [Motrin] 800 mg PO BID PRN 11/05/19 Benztropine Mesylate [Cogentin] 0.5 mg PO BID 14 Days tab 11/10/19 Sertraline HCl [Zoloft] 200 mg PO DAILY 14 Days tab 11/10/19 haloperidoL [Haldol] 5 mg PO DAILY 14 Days tab 11/10/19 lamoTRIgine [LaMICtal] 200 mg PO BID 14 Days tab 11/10/19 Albuterol Inhaler [Ventolin Hfa Inhaler] 1 puff INHALATION RT-QID PRN #1 inhaler 01/22/20 ALPRAZolam [Xanax] 1 mg PO BID 06/12/21 Brexpiprazole [Rexulti] 4 mg PO DAILY 06/12/21 Furosemide [Lasix] 40 mg PO DAILY 06/12/21 Gabapentin [Neurontin] 100 mg PO BID 06/12/21 Apixaban [Eliquis] 5 mg PO BID 12/18/21 Budesonide-Formot 160-4.5 Mcg [Symbicort 160-4.5 Mcg Inhaler] 2 puff INHALATION BID 12/18/21 metFORMIN HCL 500 mg PO BID 12/18/21 HYDROcodone/APAP 7.5-325MG [[place] 7.5-325] 1 tab PO Q12H PRN 30 Days #60 tab 12/19/21 HYDROcodone/APAP 7.5-325MG [[place] 7.5-325] 1 tab PO Q12HR PRN 30 Days #60 tab 12/19/21 Controlled Substance Measures - Controlled Substance Measures Is patient prescribed a controlled substance at discharge?: Yes When asked, does pt state using other controlled substances?: Yes If prescribed controlled substance>3 days was MAPS reviewed?: Yes If Rx opioid, was Start Talking consent form obtained?: Yes Was information provided regarding opioid addiction?: Yes
== END ==
LOC: PNWHC3 08:56
PROVIDERS: ATTEND Specialist
DX: M47.812 Spondylosis without myelopathy or radiculopathy, cervical region (principal); M50.30 Other cervical disc degeneration, unspecified cervical region; G89.29 Other chronic pain; Z79.01 Long term (current) use of anticoagulants; E11.9 Type 2 diabetes mellitus without complications; Z79.891 Long term (current) use of opiate analgesic; F17.200 Nicotine dependence, unspecified, uncomplicated; Z91.048 Other nonmedicinal substance allergy status; Z91.041 Radiographic dye allergy status; Z91.040 Latex allergy status
CPT/HCPCS: 99211

== ENCOUNTER 2022-02-28 12:12 | Emergency (ER) | payer OTHER ==
[2022-02-28 12:27] VITALS: BP 127/76; PULSE 61; RESP 18; TEMP 97.9
--- NOTE | 2022-02-28 13:14 | ED ---
General Adult HPI - General Chief complaint: Wound/Laceration Stated complaint: MRSA Time Seen by Provider: 02/28/22 13:05 Source: patient, RN notes reviewed Mode of arrival: ambulatory Limitations: no limitations - History of Present Illness Initial comments: 46-year-old female with medical history history of diabetes and COPD presents to the emergency department for an abscess. Patient notes that yesterday she has small pimple on the right side of her chin that has progressively gotten bigger over the last day. He denies any self excision. She denies fever, chills, palpitations, shortness of breath, sore throat, oral pain, airway compromise. She has had this before in 12/2021 with a cyst on the left side of her chin that was positive for MRSA. - Related Data Home Medications Medication Instructions Recorded Confirmed Ibuprofen [Motrin] 800 mg PO BID PRN 11/05/19 02/13/22 ALPRAZolam [Xanax] 1 mg PO BID 06/12/21 02/13/22 Brexpiprazole [Rexulti] 4 mg PO DAILY 06/12/21 02/13/22 Furosemide [Lasix] 40 mg PO DAILY 06/12/21 02/13/22 Gabapentin [Neurontin] 100 mg PO BID 06/12/21 02/13/22 Apixaban [Eliquis] 5 mg PO BID 12/18/21 02/13/22 Budesonide-Formot 160-4.5 Mcg 2 puff INHALATION BID 12/18/21 02/13/22 [Symbicort 160-4.5 Mcg Inhaler] metFORMIN HCL 500 mg PO BID 12/18/21 02/13/22 Previous Rx's Medication Instructions Recorded Benztropine Mesylate [Cogentin] 0.5 mg PO BID 14 Days tab 11/10/19 Sertraline HCl [Zoloft] 200 mg PO DAILY 14 Days tab 11/10/19 haloperidoL [Haldol] 5 mg PO DAILY 14 Days tab 11/10/19 lamoTRIgine [LaMICtal] 200 mg PO BID 14 Days tab 11/10/19 Albuterol Inhaler [Ventolin Hfa 1 puff INHALATION RT-QID PRN #1 01/22/20 Inhaler] inhaler HYDROcodone/APAP 10-325MG [[place] 1 tab PO Q12HR PRN 30 Days #60 tab 02/13/22 10-325] HYDROcodone/APAP 10-325MG [[place] 1 tab PO Q12HR PRN 30 Days #60 tab 02/13/22 10-325] clindamycin HCL 300 mg PO QID #40 cap 02/28/22 Allergies Allergy/AdvReac Type Severity Reaction Status Date / Time adhesive tape Allergy Rash/Hives Verified 02/28/22 12:26 Iodinated Contrast Media Allergy Rash/Hives Verified 02/28/22 12:26 [Iodinated Contrast- Oral and IV Dye] latex Allergy Rash/Hives Verified 02/28/22 12:26 Review of Systems ROS Statement: Those systems with pertinent positive or pertinent negative responses have been documented in the HPI. ROS Other: All systems not noted in ROS Statement are negative. Past Medical History Past Medical History: COPD, Diabetes Mellitus, Osteoarthritis (OA), Sleep Apnea/CPAP/BIPAP, Thyroid Disorder Additional Past Medical History / Comment(s): bilateral leg swelling. Severe neck pain, SHOULDER AND LOWER BACK , CHRONIC COUGH R/T COVID IN MAR 2021. PAST HISTORY OF THYROID PROBLEM, DOES NOT USE C PAP, BLOOD CLOT LEFT ARM. History of Any Multi-Drug Resistant Organisms: MRSA Date of last positivie culture/infection: 2021 MDRO Source:: FACE Past Surgical History: Section, Cholecystectomy Additional Past Surgical History / Comment(s): Colonoscopy, cyst removed from R arm. PAIN CLINIC PROCEDURE, FACIAL -LANCED -REMOVED MRSA Past Anesthesia/Blood Transfusion Reactions: No Reported Reaction Past Psychological History: Bipolar, Depression, Schizophrenia Smoking Status: Current every day smoker Past Alcohol Use History: None Reported Past Drug Use History: None Reported - Past Family History Family Family Medical History: No Reported History General Exam Limitations: no limitations General appearance: alert, in no apparent distress Head exam: Present: atraumatic, normocephalic, normal inspection Eye exam: Present: normal appearance, PERRL, EOMI. Absent: scleral icterus, conjunctival injection, periorbital swelling ENT exam: Present: normal exam, mucous membranes moist Neck exam: Present: normal inspection. Absent: tenderness, meningismus, l ymphadenopathy Respiratory exam: Present: normal lung sounds bilaterally. Absent: respiratory distress, wheezes, rales, rhonchi, stridor Cardiovascular Exam: Present: regular rate, normal rhythm, normal heart sounds. Absent: systolic murmur, diastolic murmur, rubs, gallop, clicks GI/Abdominal exam: Present: soft, normal bowel sounds. Absent: distended, tenderness, guarding, rebound, rigid Extremities exam: Present: normal inspection, full ROM, normal capillary refill. Absent: tenderness, pedal edema, joint swelling, calf tenderness Back exam: Present: normal inspection Neurological exam: Present: alert, oriented X3, CN II-XII intact Psychiatric exam: Present: normal affect, normal mood Skin exam: Present: warm (Small 1 cm lesion to r chin that is erythematous and fluctuant. No migrating erthema, edema. Tender to palpation. ), dry, intact, normal color. Absent: rash Course Vital Signs 02/28/22 12:24 Temperature 97.9 F Pulse Rate 61 Respiratory 18 Rate Blood Pressure 127/76 O2 Sat by Pulse 99 Oximetry Medical Decision Making - Medical Decision Making 46-year-old female coming into the department for an abscess on the right side of the chin. Patient had the abscess lanced in the ED with drainage and symptomatic relief in the emergency department. Patient requesting prescription for Clindamycin because she states that in the past Bactrim has worked for her. Patient is agreeable to plan for discharge all questions addressed. Patient discharged in stable condition. I discussed the case with Dr. Charlton who is in agreement with plan for discharge Disposition Clinical Impression: Abscess Disposition: HOME SELF-CARE Condition: Stable Instructions (If sedation given, give patient instructions): Abscess Incision and Drainage (ED) Additional Instructions: Please return to the nearest ER if worsening redness, edema, airway compromise, fevers develop Prescriptions: clindamycin HCL 300 mg PO QID #40 cap Is patient prescribed a controlled substance at d/c from ED?: No Referrals: Tanika Louis MD [Primary Care Provider] - 1-2 days Time of Disposition: 13:51
== END 2022-02-28 14:05 | disposition home or self-care (01) ==
LOC: EC 12:12
DX: L02.01 Cutaneous abscess of face (principal); J44.9 Chronic obstructive pulmonary disease, unspecified; E11.9 Type 2 diabetes mellitus without complications; M19.90 Unspecified osteoarthritis, unspecified site; G47.30 Sleep apnea, unspecified; E07.9 Disorder of thyroid, unspecified; F31.9 Bipolar disorder, unspecified; F17.200 Nicotine dependence, unspecified, uncomplicated; Z79.84 Long term (current) use of oral hypoglycemic drugs; Z79.899 Other long term (current) drug therapy; Z91.041 Radiographic dye allergy status; Z91.040 Latex allergy status
CPT/HCPCS: 10060; 99282

== ENCOUNTER 2022-03-25 10:00 | Day surgery (SDC) | payer OTHER ==
[2022-03-25 10:22] VITALS: RESP 16; TEMP 98
[2022-03-25 10:28] LABS: Glucose,Whole Blood 103 mg/dL (70-110)
[2022-03-25] MEDS ORDERED: ROPIVACAINE 5 MG/ML 20 ML AMPULE ONE (10:29)
[2022-03-25] MEDS ORDERED: MIDAZOLAM 2 MG/2 ML VIAL ONE (10:29)
[2022-03-25] MEDS ORDERED: IV FLUID CONTINUATION 700 ML IV ONE (10:46)
--- NOTE | 2022-03-25 10:46 | P.PCN ---
Date of Procedure: 03/25/22 Description of Procedure: Procedure: Cervical Medial Branch Block at bilateral C4 5 and C5 6 #2 Indications: Neck Pain Diagnosis: Cervical spondylosis without myelopathy Imaging: Fluoroscopy was used, images where saved to the medical record Anesthesia: Nurse provided anesthesia, moderate sedation was used. Anesthesia supervision time was from [id number]. Description of procedure: The patient was seen and examined in the [facility]. Procedure risks and benefits were fully reviewed with patient. The patient understands this is a diagnostic as well as a therapeutic procedure and that the goal of the procedure is to inject medication on to the medial branch or small nerves that go into the facet joints. In this way, we can hopefully identify which of these joints, if any, may be contributing to their pain. Informed consent for the procedure was obtained. The patient was taken into the office fluoroscopy procedure room and placed supine on the table. Vital signs were closely monitored during the procedure. The skin over the area was prepped with chlorhexidine and draped in usual sterile manner. Sterile technique was observed throughout procedure. Under fluoroscopic guidance, the target injection areas of the the above noted level's medial branches were visualized in lateral views. Using biplanar fluoroscopy, a 25 gauge 3.5 inch needle was inserted into proper position where the tip of the needle was located at the midpoint of the quadrangle at each level. After negative aspiration for blood and CSF, 0.5cc of 0.25 % Ropivacaine was injected into each of the targeted areas. The needles were withdrawn intact. No complications were noted during the procedure. The patient tolerated procedure well. The patient was placed in supine position and transferred to the recovery area for observation and remained stable until discharged home. Home discharge instructions given to the patient by the staff. The patient was reexamined prior to discharge. Follow up/plan: The patient will schedule a follow up in the clinic to discuss results and potential RFA.
--- NOTE | 2022-03-25 10:59 | FL ---
Intraoperative/procedural fluoroscopic services were provided for bilateral cervical facet block. Tot al fluoroscopy time is 6 seconds with a total of 5 submitted images to PACS. Please see the operative note for further details.
[2022-03-25 11:03] VITALS: BP 127/70; PULSE 72
== END 2022-03-25 11:16 | disposition home or self-care (01) ==
LOC: ORPAIN 10:00
PROVIDERS: ATTEND Hospitalist
DX: M47.812 Spondylosis without myelopathy or radiculopathy, cervical region (principal); Z91.041 Radiographic dye allergy status
CPT/HCPCS: 64491 ×2; 99152; 81025; 64490; J2250; J2795

== ENCOUNTER → 2022-04-16 | Outpatient (CLI) | payer OTHER ==
[2022-04-16 12:51] VITALS: BP 135/77; PULSE 58; RESP 18
--- NOTE | 2022-04-16 14:08 | P.PAINPG ---
PQRS Measure Charge Sheet Comment: A 46 yr old female with a history of severe and chronic neck pain secondary to cervical DDD and spondylosis with facet arthropathy without myelopathy presents today for evaluation s/p BL facet block of the medial branches C4-C5, C5-C6 #1. Pt states she experienced 80% pain relief x 3 day s s/p procedure. Pain level is provoked at 7 /10 in intensity, constant, localized in the cervical spine, sharp, shooting in character w shooting towards the superior aspects of the trapezius. Pain is provoked by rotation and overhead reaching. Pain is alleviated with PT in Dec 2021, heat, home exercise regimen, meds ([place], Ibu), repositioning and rest. Interventional pain procedures completed include BL MBB C4-C6 x1 Patient is currently on [place], Ibu Patient denies any side effects of the medication(s), denies excessive drowsiness or sleepiness, denies suicidal ideation and reports that the current pain medication is helping to control the pain and improve activities of daily living. Patient denies any motor or sensory deficits. Patient denies any fever or night sweats, denies any change in the bowel movements or urination. Physical Examination: -Constitutional: Cooperative. Not in acute distress . - Neurologic: Cranial nerve II to XII intact. No focal neurological deficits. - Psychatric: Alert & oriented x 3. Matching mood & appropriate affect. Judgment and insight intact. - Musculoskeletal: Cervical spine: Muscle bulk/ tone/ strength in the bilateral upper extremities normal Vertebral body tenderness to palpation over Spurling test positive Distraction test positive Facet loading test positive TTP over BL C4-C5, C5-C6 facets Thoracic spine Muscle bulk / tone/ strength in the bilateral paraspinal muscles normal Vertebral body tender to palpation over Facet loading test positive Lumbar spine: Motor bulk/ tone/ strength lower extremities , thigh and legs : 5/5 Deep tendon reflexes : Normal Knee Jerk. Normal Ankle Jerk . Vertebral body tenderness to palpation over Lumbar Facet Loading Test positive Straight Leg Raise: positive at 30 degrees right side/ left side Gaenslen's Test positive Sacral spine : Severe tenderness over the Sacroiliac joint: right side / left side Range of motion: Flexion of the lumbar spine <60 degrees Range of motion: Extension of the lumbar spine <20 degrees Gaenslen's Test positive Maxime test: positive right side / left side Thigh Thrust Test Sacral Thrust Test Assessment and plan: Chronic neck pain secondary to cervical DDD, spondylosis with facet arthropathy without myelopathy Recommendation of BL facet block of the medial branches C4-C5, C5-C6 #2. Pt exhibited sufficient and substantial pain relief w prior facet blocks of the medial branches. Risks, benefits of procedure discussed and pt verbalized understanding. Admits to anticoagulant use or medical history of diabetes. Protocol for discontinuation/continuation of medications surrounding procedure discussed. Chronic and current use of high-risk medication (Opioids). The patient was counseled about risk of opioid use, psychological risk associated with opioids and was orally counseled to not overuse , divert or sell medications. Pt is to store medication in a safe location. The patient is counseled against driving while using narcotic me dications and also not to use alcohol or any illicit recreational drugs. Patient verbalized understanding that the lack of compliance will result in failure to renew narcotic prescription(s) as well as possible discharge from the clinic Diagnoses, prognosis and treatment options including but not limited to physical therapy, surgical interventions, interventional therapies and medic ation management including narcotics and adjuvant medication were discussed. All patient questions answered MAPS reviewed and it was appropriate. UDS reviewed and consistent. Prescription refill for [place] 10/325mg #60 w 1 RF. I have spent less than 30 minutes on patient care today. Dr Rice was available by phone for the evaluation of this patient. The time was used to r eview the medical records including relevant urine studies and Prescription history (MAPs), review of the available imaging, evaluation and examination of the patient, coordination of care with the medical staff and if applicable referring physicians, as well as creation of the medical record PQRS Narrative: Smoking Status Current every day smoker Narcotic Agreement Date Signed 06/13/21 Hx Alcohol Use (MH) No Home Medications: Ambulatory Orders Ibuprofen [Motrin] 800 mg PO BID PRN 11/05/19 Benztropine Mesylate [Cogentin] 0.5 mg PO BID 14 Days tab 11/10/19 lamoTRIgine [LaMICtal] 200 mg PO BID 14 Days tab 11/10/19 Albuterol Inhaler [Ventolin Hfa Inhaler] 1 puff INHALATION RT-QID PRN #1 inhaler 01/22/20 ALPRAZolam [Xanax] 1 mg PO BID 06/12/21 Brexpiprazole [Rexulti] 4 mg PO DAILY 06/12/21 Furosemide [Lasix] 40 mg PO DAILY 06/12/21 Budesonide-Formot 160-4.5 Mcg [Symbicort 160-4.5 Mcg Inhaler] 2 puff INHALATION BID 12/18/21 metFORMIN HCL 500 mg PO BID 12/18/21 buPROPion XL [Wellbutrin XL] 300 mg PO DAILY 03/21/22 haloperidoL [Haldol] 5 mg PO HS 03/21/22 HYDROcodone/APAP 10-325MG [[place] 10-325] 1 tab PO Q12HR PRN 30 Days #60 tab 04/16/22 HYDROcodone/APAP 10-325MG [[place] 10-325] 1 tab PO Q12HR PRN 30 Days #60 tab 04/16/22 Controlled Substance Measures - Controlled Substance Measures Is patient prescribed a controlled substance at discharge?: Yes When asked, does pt state using other controlled substances?: Yes If prescribed controlled substance>3 days was MAPS reviewed?: No If Rx opioid, was Start Talking consent form obtained?: Yes If opioid is for acute pain is fill amount 7 days or less?: No Was information provided regarding opioid addiction?: Yes
== END ==
LOC: PNWHC3 12:01
PROVIDERS: ATTEND Specialist
DX: M47.812 Spondylosis without myelopathy or radiculopathy, cervical region (principal); F17.200 Nicotine dependence, unspecified, uncomplicated; Z91.041 Radiographic dye allergy status; Z91.048 Other nonmedicinal substance allergy status
CPT/HCPCS: 99211

== ENCOUNTER → 2022-06-11 | Outpatient (CLI) | payer OTHER ==
[2022-06-11 12:29] VITALS: BP 118/80; PULSE 63; RESP 18; TEMP 98.2
--- NOTE | 2022-06-11 14:14 | P.PAINPG ---
PQRS Measure Charge Sheet Comment: A 46 yr old female with a history of severe and chronic neck pain secondary to cervical DDD and spondylosis with facet arthropathy without myelopathy presents today for medication refills and evaluation s/p BL facet block of C4-C5, C5-C6 #2. Pt states she experienced 80 % pain relief x 2 days s/p procedure. Pain level is provoked at 8/10 in intensity, constant, localized in the cervical spine, throbbing in character w shooting towards the BUEs. Pain is provoked by lifting. Pain is alleviated with PT integrated w massage x 5 wks in Dec 2021, heat, ice, medications, reclining, repositioning and rest. Interventional pain procedures completed include BL MBB C4-C6 x2, RANDALL C6-C7 x2 Patient is currently on [employer] Patient denies any side effects of the medication(s), denies excessive drowsiness or sleepiness, denies suicidal ideation and reports that the current pain medication is helping to control the pain and improve activities of daily living. Patient denies any motor or sensory deficits. Patient denies any fever or night sweats, denies any change in the bowel movements or urination. Physical Examination: -Constitutional: Cooperative. Not in acute distress . - Neurologic: Cranial nerve II to XII intact. No focal neurological deficits. - Psychatric: Alert & oriented x 3. Matching mood & appropriate affect. Judgment and insight intact. - Musculoskeletal: Cervical spine: Muscle bulk/ tone/ strength in the bilateral upper extremities normal Vertebral body tenderness to palpation over Spurling test positive Distraction test positive Facet loading test positive TTP over BL C4-C5, C5-C6 facets Thoracic spine Muscle bulk / tone/ strength in the bilateral paraspinal muscles normal Vertebral body tender to palpation over Facet loading test positive TTP Lumbar spine: Motor bulk/ tone/ strength lower extremities , thigh and legs : 5/5 Deep tendon reflexes : Normal Knee Jerk. Normal Ankle Jerk . Vertebral body tenderness to palpation over Lumbar Facet Loading Test positive Straight Leg Raise: positive at 30 degrees right side/ left side Gaenslen's Test positive Sacral spine : Severe tenderness over the Sacroiliac joint: right side / left side Range of motion: Flexion of the lumbar spine <60 degrees Range of motion: Extension of the lumbar spine <20 degrees Gaenslen's Test positive R / L Maxime test: positive right side / left side Thigh Thrust Test positive R / L Sacral Thrust Test positive R/ L Assessment and plan: Chronic neck pain secondary to cervical DDD, spondylosis with facet arth ropathy without myelopathy Recommendation of BL RFA C4-C5, C5-C6. Exhibited sufficient pain relief w prior MBB procedures. Risks, benefits of procedure discussed and pt verbalized understanding. Admits to anti inflammatory use and medical history of diabetes. Protocol for discontinuation/ continuation of medications hammad procedure discussed. Chronic and current use of high-risk medication (Opioids). The patient was counseled about risk of opioid use, psychological risk associated with opioids and was orally counseled to not overuse , divert or sell medications. Pt is to store medication in a safe location. The patient is counseled against driving while using narcotic medications and also not to use alcohol or any illicit recreational drugs. Patient verbalized understanding that the lack of compliance will result in failure to renew narcotic prescription(s) as well as possible discharge from the clinic Diagnoses, prognosis and treatment options including but not limited to physical therapy, surgical interventions, interventional therapies and medication management including narcotics and adjuvant medication were discussed. All patient questions answered MAPS reviewed and it was appropriate. Urine tox screen today 329/23. Prescription refill for [employer] 10/325mg # 60 w 1 RF I have spent less than 30 minutes on patient care today. Dr Rice was available by phone for the evaluation of this patient. The time was used to review the medical records including relevant urine studies and Prescription history (MAPs), review of the available imaging, evaluation and examination of the patient, coordination of care with the medical staff and if applicable referring physicians, as well as creation of the medical record PQRS Narrative: Smoking Status Current every day smoker Narcotic Agreement Date Signed 06/13/21 Hx Alcohol Use (MH) No Home Medications: Ambulatory Orders Ibuprofen [Motrin] 800 mg PO BID PRN 11/05/19 Benztropine Mesylate [Cogentin] 0.5 mg PO BID 14 Days tab 11/10/19 lamoTRIgine [LaMICtal] 200 mg PO BID 14 Days tab 11/10/19 Albuterol Inhaler [Ventolin Hfa Inhaler] 1 puff INHALATION RT-QID PRN #1 inhaler 01/22/20 ALPRAZolam [Xanax] 1 mg PO BID 06/12/21 Brexpiprazole [Rexulti] 4 mg PO DAILY 06/12/21 Furosemide [Lasix] 40 mg PO DAILY 06/12/21 Budesonide-Formot 160-4.5 Mcg [Symbicort 160-4.5 Mcg Inhaler] 2 puff INHALATION BID 12/18/21 metFORMIN HCL 500 mg PO BID 12/18/21 buPROPion XL [Wellbutrin XL] 300 mg PO DAILY 03/21/22 haloperidoL [Haldol] 5 mg PO HS 03/21/22 HYDROcodone/APAP 10-325MG [[employer] 10-325] 1 tab PO BID PRN 30 Days #60 tab 06/11/22 HYDROcodone/APAP 10-325MG [[employer] 10-325] 1 tab PO Q12HR PRN 30 Days #60 tab 06/11/22 Controlled Substance Measures - Controlled Substance Measures Is patient prescribed a controlled substance at discharge?: Yes
== END ==
LOC: PNWHC3 09:34
PROVIDERS: ATTEND Specialist
DX: M50.30 Other cervical disc degeneration, unspecified cervical region (principal); M47.812 Spondylosis without myelopathy or radiculopathy, cervical region; G89.29 Other chronic pain; Z79.891 Long term (current) use of opiate analgesic; F17.200 Nicotine dependence, unspecified, uncomplicated; Z91.040 Latex allergy status; Z91.048 Other nonmedicinal substance allergy status; Z91.041 Radiographic dye allergy status
CPT/HCPCS: 99211

== ENCOUNTER → 2022-06-11 | Outpatient (CLI) | payer OTHER ==
[2022-06-12 08:49] LABS: Serum Amphetamine Negative; Serum Barbiturates Negative; Serum Benzodiazepine Negative; Serum Cocaine Negative; Serum Methadone Negative; Serum Opiates Negative; Serum Phencyclidine Negative; Serum Propoxyphene Negative; Serum THC (Cannabis) Negative
== END | disposition home or self-care (01) ==
LOC: LABWHC1 10:50
PROVIDERS: ATTEND Physician Assistant Medical
DX: Z02.83 Encounter for blood-alcohol and blood-drug test (principal)
CPT/HCPCS: 36415; 80307

== ENCOUNTER 2022-07-25 09:16 | Day surgery (SDC) | payer OTHER ==
[2022-07-23 16:22] VITALS: BMI 43.0
[2022-07-25 09:50] VITALS: TEMP 97
[2022-07-25 09:51] LABS: Glucose,Whole Blood 98 mg/dL (70-110)
[2022-07-25] MEDS ORDERED: ROPIVACAINE 5 MG/ML 20 ML AMPULE ONE (10:04)
[2022-07-25] MEDS ORDERED: MIDAZOLAM 2 MG/2 ML VIAL ONE (10:06)
[2022-07-25] MEDS ORDERED: fentaNYL (PF) 50 MCG/ML 2 ML AMP ONE (10:06)
--- NOTE | 2022-07-25 10:43 | P.PCN ---
Date of Procedure: 07/25/22 Description of Procedure: PREOPERATIVE DIAGNOSIS: Cervical spondylosis without myelopathy POSTOPERATIVE DIAGNOSIS: Cervical spondylosis without myelopathy PROCEDURES: Radiofrequency thermocoagulation of bilateral C4 5, C5-C6 Imaging: Fluoroscopy was used, images where saved to the medical record ANESTHESIA: See anesthesia record EBL: Minimal PROCEDURE INDICATION: The patient with neck pain secondary to cervical spondylosis who had more than 50% relief of her pain with previous diagnostic cervical medial branch block. PROCEDURE DESCRIPTION / TECHNIQUE: The patient was seen and identified in the preoperative area. Risks, benefits, complications, and alternatives were discussed with the patient, the patient agreed to proceed with the procedure and signed the consent. IV was started. Vital signs remained stable throughout the procedure. Patient was taken to the OR and time out was completed. The patient was placed in the prone position on the procedure table. A wedge was placed to align the cervical spine due to patient's body habitus. The cervical area was prepped and draped in the usual sterile fashion. Critical pause was taken. Vital signs were closely monitored during the procedure. Conscious sedation was used during the procedure to decrease patient's anxiety. Using cross-table lateral fluoroscopy, the centroid of the trapezoid of the above referenced levels were identified, marked, and localized with 1% lidocaine. Subsequently, a 20 [id number] radiofrequency cannula with a 10-mm active tip was advanced guided by fluoroscopy to the centroid of the trapezoid of the above referenced levels. Needle tip position was confirmed at the centroid of the trapezoids of the above referenced levels with anteroposterior fluoroscopy and the depth of the needle were checked regularly in the lateral position. Each site then underwent sensory testing at 50 Hz and 0 to 1 volt and motor testing at 2 Hz and 0 to 3 volt with local stimulation, but no radicular symptoms down the arm. Thereafter the targeted sites underwent radiofrequency thermocoagulation at 80 degrees celsius for 90 seconds after injecting 0.5 ml of PF lidocaine 1%. After thermocoagulation of the targeted sites, 1 ml of 0.5% ropivacaine was then injected after negative aspiration of CSF and blood and with no paresthesias. Cannulas were retracted while injecting lidocaine 0.5% ropivacaine until the needle is out. Skin was cleansed and bandages were applied. COMPLICATIONS: No acute complications. DISPOSITION / PLANS: The patient was placed in a supine position and transferred to the recovery area in a stable condition for observation and was discharged from the recovery room after meeting discharge criteria. Home discharge instructions given to the patient by the staff. The patient was reexamined prior to discharge. The patient will schedule a follow up as directed.
[2022-07-25 10:50] VITALS: RESP 18
[2022-07-25] MEDS ORDERED: IV FLUID CONTINUATION 700 ML IV ONE (10:50)
[2022-07-25 11:05] VITALS: BP 127/73; PULSE 68
--- NOTE | 2022-07-28 14:48 | FL ---
EXAMINATION TYPE: FL guidance operating room DATE OF EXAM: 07/25/2022 HISTORY: Fluoroscopy time Total dose area product (DAP) in uGy*m?, mGy*cm? (or similar): 0.64970 IMPRESSION: 1. Fluoroscopy time.
== END 2022-07-25 11:15 | disposition home or self-care (01) ==
LOC: ORPAIN 09:16
PROVIDERS: ATTEND Hospitalist
DX: M47.812 Spondylosis without myelopathy or radiculopathy, cervical region (principal); E11.9 Type 2 diabetes mellitus without complications; F17.210 Nicotine dependence, cigarettes, uncomplicated; Z88.5 Allergy status to narcotic agent; Z88.8 Allergy status to other drugs, medicaments and biological substances; Z79.899 Other long term (current) drug therapy
CPT/HCPCS: 64634 ×2; 81025; 64633; J2250; J3010; J2795

== ENCOUNTER → 2022-08-06 | Outpatient (CLI) | payer OTHER ==
[2022-08-06 12:10] VITALS: BP 149/71; PULSE 60; RESP 18; TEMP 98.4
--- NOTE | 2022-08-06 13:48 | P.PAINPG ---
PQRS Measure Charge Sheet Comment: A 46 yr old female with a history of severe and chronic neck pain x yrs secondary to cervical DDD and spondylosis with facet arthropathy without myelopathy presents today for medication refills and evaluation s/p BL RFA of C4-C5, C5-C6. Pt states she feels achy at the injection sites s/p procedure. Pain level is provoked at 7/10 in intensity, constant, localized in the cervical spine, throbbing in character w shooting towards the BUEs. Pain is provoked by lifting, forward flexion. Pain is alleviated with PT integrated w massage x 6 wks in Dec 2021, heat, ice, medications, reclining, repositioning and rest. Interventional pain procedures completed include BL RFA C4-C6, RANDALL C6-C7 x2 Patient is currently on [place], Ibu Patient denies any side effects of the medication(s), denies excessive drowsiness or sleepiness, denies suicidal ideation and reports that the current pain medication is helping to control the pain and improve activities of daily living. Patient denies any motor or sensory deficits. Patient denies any fever or night sweats, denies any change in the bowel movements or urination. Physical Examination: -Constitutional: Cooperative. Not in acute distress . - Neurologic: Cranial nerve II to XII intact. No focal neurological deficits. - Psychatric: Alert & oriented x 3. Matching mood & appropriate affect. Judgment and insight intact. - Musculoskeletal: Cervical spine: Muscle bulk/ tone/ strength in the bilateral upper extremities normal Vertebral body tenderness to palpation over Spurling test positive Distraction test positive Facet loading test positive TTP over BL C4-C5, C5-C6 facets Thoracic spine Muscle bulk / tone/ strength in the bilateral paraspinal muscles normal Vertebral body tender to palpation over Facet loading test positive TTP Lumbar spine: Motor bulk/ tone/ strength lower extremities , thigh and legs : 5/5 Deep tendon reflexes : Normal Knee Jerk. Normal Ankle Jerk . Vertebral body tenderness to palpation over Lumbar Facet Loading Test positive Straight Leg Raise: positive at 30 degrees right side/ left side Gaenslen's Test positive Sacral spine : Severe tenderness over the Sacroiliac joint: right side / left side Range of motion: Flexion of the lumbar spine <60 degrees Range of motion: Extension of the lumbar spine <20 degrees Gaenslen's Test positive R / L Maxime test: positive right side / left side Thigh Thrust Test positive R / L Sacral Thrust Test positive R/ L Assessment and plan: Chronic neck pain secondary to cervical DDD, spondylosis with facet arthropathy without myelopathy Recommendation of BL TPIs C2-C7. May need a series of injections for optimal pain relief. Risks, benefits of procedure discussed and pt verbalized understanding. Admits to anti inflammatory use and medical history of diabetes. Protocol for discontinuation/ continuation of medications hammad procedure discussed. Chronic and current use of high-risk medication (Opioids). The patient was counseled about risk of opioid use, psychological risk associated with opioids and was orally counseled to not overuse , divert or sell medications. Pt is to store medication in a safe location. The patient is counseled against driving while using narcotic medications and also not to use alcohol or any illicit recreational drugs. Patient verbalized understanding that the lack of compliance will result in failure to renew narcotic prescription(s) as well as possible discharge from the clinic Diagnoses, prognosis and treatment options including but not limited to physical therapy, surgical interventions, interventional therapies and medication management including narcotics and adjuvant medication were discussed. All patient questions answered MAPS reviewed and it was appropriate. Blood tox screen 06/11/22 reviewed and negative for Opiates. Will redo today 08/06/22. Prescription refill for [place] 10/325mg # 60 w 1 RF I have spent less than 30 minutes on patient care today. Dr Rice was available by phone for the evaluation of this patient. The time was used to review the medical records including relevant urine studies and Prescription history (MAPs), review of the available imaging, evaluation and examination of the patient, coordination of care with the medical staff and if applicable referring physicians, as well as creation of the medical record PQRS Narrative: Smoking Status Current every day smoker Narcotic Agreement Date Signed 06/13/21 Hx Alcohol Use (MH) No Home Medications: Ambulatory Orders Ibuprofen [Motrin] 800 mg PO BID PRN 11/05/19 Benztropine Mesylate [Cogentin] 0.5 mg PO BID 14 Days tab 11/10/19 lamoTRIgine [LaMICtal] 200 mg PO BID 14 Days tab 11/10/19 Albuterol Inhaler [Ventolin Hfa Inhaler] 1 puff INHALATION RT-QID PRN #1 inhaler 01/22/20 ALPRAZolam [Xanax] 1 mg PO BID 06/12/21 Brexpiprazole [Rexulti] 4 mg PO DAILY 06/12/21 Furosemide [Lasix] 40 mg PO DAILY 06/12/21 Budesonide-Formot 160-4.5 Mcg [Symbicort 160-4.5 Mcg Inhaler] 2 puff INHALATION BID 12/18/21 metFORMIN HCL 500 mg PO BID 12/18/21 buPROPion XL [Wellbutrin XL] 300 mg PO DAILY 03/21/22 haloperidoL [Haldol] 5 mg PO HS 03/21/22 HYDROcodone/APAP 10-325MG [[place] 10-325] 1 tab PO BID PRN 30 Days #60 tab 06/11/22 Controlled Substance Measures - Controlled Substance Measures Is patient prescribed a controlled substance at discharge?: Yes When asked, does pt state using other controlled substances?: Yes If prescribed controlled substance>3 days was MAPS reviewed?: Yes
== END ==
LOC: PNWHC3 09:47
PROVIDERS: ATTEND Specialist
DX: M50.322 Other cervical disc degeneration at C5-C6 level (principal); M48.02 Spinal stenosis, cervical region; M47.812 Spondylosis without myelopathy or radiculopathy, cervical region; G89.29 Other chronic pain; Z79.891 Long term (current) use of opiate analgesic; F17.200 Nicotine dependence, unspecified, uncomplicated; Z51.81 Encounter for therapeutic drug level monitoring; Z91.048 Other nonmedicinal substance allergy status; Z91.040 Latex allergy status; Z91.041 Radiographic dye allergy status
CPT/HCPCS: 80307; G0482; G0463; 99212

== ENCOUNTER 2022-09-02 09:04 | Day surgery (SDC) | payer OTHER ==
[2022-08-28 08:56] VITALS: BMI 42.4
[2022-09-02 09:32] VITALS: RESP 16; TEMP 98.1
[2022-09-02] MEDS ORDERED: LACTATED RINGERS 1,000 ML IV SCH (09:45)
[2022-09-02 09:49] LABS: Glucose,Whole Blood 107 mg/dL (70-110)
[2022-09-02] MEDS ORDERED: TRIAMCINOLONE ACETONIDE 40 MG/ML 1 ML VIAL ONE (09:53)
[2022-09-02] MEDS ORDERED: ROPIVACAINE 5 MG/ML 20 ML AMPULE ONE (09:53)
--- NOTE | 2022-09-02 10:00 | P.PCN ---
Date of Procedure: 09/02/22 Description of Procedure: Pre and postop diagnosis: Myofascial pain syndrome Procedure: Trigger point injections X 14 Muscle group X bilateral trapezius, and levator scapulae, splenius capitis muscle Surgeon: Paola Chaparro Anesthesia:none Complications: None Estimated blood loss: None Specimen removed: None Procedure indications: Patient had a history of myofascial pain syndrome. Patient tried conservative therapy. Came here for intervention procedure for better pain relief. Procedure description: Patient was seen and identified in the holding area risk benefits competitions alternative discussed with the patient. Patient agreed to proceed for the procedure signed the consent. Patient taken to the procedure area. Timeout was completed. A total number of 14 - trigger point area was marked with a sterile marker. After ChloraPrep used to clean the area. Critical pause was taken. Using 25-gauge 1-1/[address] way. Needle entered in each market site one mL of block solution injected at each level. The block solution containing 15 ml of 0.5% preservative-free ropivacaine with [place] 40 MG. Needle removed intact skin cleaned and Band-Aid applied. Patient tolerated the procedure well. Disposition: Patient discharge home after meeting the discharge criteria from the recovery. Patient scheduled to follow up with the pain clinic in 4 weeks for follow-up visit.
[2022-09-02 10:03] VITALS: BP 121/59; PULSE 58
== END 2022-09-02 10:20 | disposition home or self-care (01) ==
LOC: ORPAIN 09:04
PROVIDERS: ATTEND Anesthesiology
DX: M79.18 Myalgia, other site (principal); M54.2 Cervicalgia; E11.9 Type 2 diabetes mellitus without complications; F41.9 Anxiety disorder, unspecified; F32.A Depression, unspecified; B00.9 Herpesviral infection, unspecified; F17.210 Nicotine dependence, cigarettes, uncomplicated; Z91.040 Latex allergy status; Z91.048 Other nonmedicinal substance allergy status; Z79.1 Long term (current) use of non-steroidal anti-inflammatories (NSAID); Z79.84 Long term (current) use of oral hypoglycemic drugs; Z79.899 Other long term (current) drug therapy
CPT/HCPCS: 20553; J3301; J2795

== ENCOUNTER → 2022-10-01 | Outpatient (CLI) | payer OTHER ==
[2022-10-01 10:30] VITALS: BP 135/87; PULSE 57; RESP 18; TEMP 98.2
--- NOTE | 2022-10-01 15:30 | P.PAINPG ---
PQRS Measure Charge Sheet Comment: A 46 yr old female with a history of severe and chronic neck pain x yrs secondary to cervical DDD and spondylosis with facet arthropathy without myelopathy presents today for medication refills and evaluation s/p Cervical TPIs. Pt states she experienced 80 % pain relief x 3 wks s/p procedure. Pain level is provoked at 7/10 in intensity, constant, localized in the cervical spine, throbbing in character w/o shooting pain. Pain is provoked by lifting, forward flexion. Pain is alleviated with PT integrated w massage x 6 wks in Dec 2021, heat, ice, medications, reclining, repositioning and rest. Oswestry axial pain score of 19. Interventional pain procedures completed include BL RFA C4-C6, RANDALL C6-C7 x2, Cervical TPIs Patient is currently on [place], Ibu Patient denies any side effects of the medication(s), denies excessive drowsiness or sleepiness, denies suicidal ideation and reports that the current pain medication is helping to control the pain and improve activities of daily living. Patient denies any motor or sensory deficits. Patient denies any fever or night sweats, denies any change in the bowel movements or urination. Physical Examination: -Constitutional: Cooperative. Not in acute distress . - Neurologic: Cranial nerve II to XII intact. No focal neurological deficits. - Psychatric: Alert & oriented x 3. Matching mood & appropriate affect. Judgment and insight intact. - Musculoskeletal: Cervical spine: Muscle bulk/ tone/ strength in the bilateral upper extremities normal Vertebral body tenderness to palpation over Spurling test positive Distraction test positive Taut bands w twitch response over BL C2-T1 paraspinal muscles Facet loading test Thoracic spine Muscle bulk / tone/ strength in the bilateral paraspinal muscles normal Vertebral body tender to palpation over Facet loading test positive TTP Lumbar spine: Motor bulk/ tone/ strength lower extremities , thigh and legs : 5/5 Deep tendon reflexes : Normal Knee Jerk. Normal Ankle Jerk . Vertebral body tenderness to palpation over Lumbar Facet Loading Test positive Straight Leg Raise: positive at 30 degrees right side/ left side Gaenslen's Test positive Sacral spine : Severe tenderness over the Sacroiliac joint: right side / left side Range of motion: Flexion of the lumbar spine <60 degrees Range of motion: Extension of the lumbar spine <20 degrees Gaenslen's Test positive R / L Maxime test: positive right side / left side Thigh Thrust Test positive R / L Sacral Thrust Test positive R/ L Assessment and plan: Chronic neck pain secondary to cervical DDD, spondylosis with facet arthropathy without myelopathy Recommendation of BL cervical TPIs C2-T1 #2. May need a series of injections for optimal pain relief. Risks, benefits of procedure discussed and pt verbalized understanding. Admits to anti inflammatory use and medical history of diabetes. Protocol for discontinuation/ continuation of medications hammad procedure discussed. Chronic and current use of high-risk medication (Opioids). The patient was counseled about risk of opioid use, psychological risk associated with opioids and was orally counseled to not overuse , divert or sell medications. Pt is to store medication in a safe location. The patient is counseled against driving while using narcotic medications and also not to use alcohol or any illicit recreational drugs. Patient verbalized understanding that the lack of compliance will result in failure to renew narcotic prescription(s) as well as possible discharge from the clinic Diagnoses, prognosis and treatment options including but not limited to physical therapy, surgical interventions, interventional therapies and medication management including narcotics and adjuvant medication were discussed. All patient questions answered MAPS reviewed and it was appropriate. Blood from 08/06/22 reviewed and consistent. Prescription refill for [place] 10/325mg # 60 w 1 RF I have spent less than 30 minutes on patient care today. Dr Rice was available by phone for the evaluation of this patient. The time was used to review the medical records including relevant urine studies and Prescription history (MAPs), review of the available imaging, evaluation and examination of the patient, coordination of care with the medical staff and if applicable referring physicians, as well as creation of the medical record PQRS Narrative: Smoking Status Current every day smoker Narcotic Agreement Date Signed 06/13/21 Hx Alcohol Use (MH) No Home Medications: Ambulatory Orders Ibuprofen [Motrin] 800 mg PO BID PRN 11/05/19 Benztropine Mesylate [Cogentin] 0.5 mg PO BID 14 Days tab 11/10/19 lamoTRIgine [LaMICtal] 200 mg PO BID 14 Days tab 11/10/19 Albuterol Inhaler [Ventolin Hfa Inhaler] 1 puff INHALATION RT-QID PRN #1 inhaler 01/22/20 ALPRAZolam [Xanax] 1 mg PO BID 06/12/21 Brexpiprazole [Rexulti] 4 mg PO DAILY 06/12/21 Furosemide [Lasix] 40 mg PO DAILY 06/12/21 Budesonide-Formot 160-4.5 Mcg [Symbicort 160-4.5 Mcg Inhaler] 2 puff INHALATION BID 12/18/21 metFORMIN HCL 500 mg PO BID 12/18/21 buPROPion XL [Wellbutrin XL] 300 mg PO DAILY 03/21/22 haloperidoL [Haldol] 5 mg PO HS 03/21/22 HYDROcodone/APAP 10-325MG [[place] 10-325] 1 tab PO BID PRN 30 Days #60 tab 10/01/22 HYDROcodone/APAP 10-325MG [[place] 10-325] 1 tab PO BID PRN 30 Days #60 tab 10/01/22 Controlled Substance Measures - Controlled Substance Measures Is patient prescribed a controlled substance at discharge?: Yes
== END ==
LOC: PNWHC3 09:26
PROVIDERS: ATTEND Specialist
DX: M50.33 Other cervical disc degeneration, cervicothoracic region (principal); M47.813 Spondylosis without myelopathy or radiculopathy, cervicothoracic region; G89.29 Other chronic pain; F17.200 Nicotine dependence, unspecified, uncomplicated; Z91.048 Other nonmedicinal substance allergy status; Z91.041 Radiographic dye allergy status
CPT/HCPCS: 99211

== ENCOUNTER → 2022-10-16 | Day surgery (SDC) | payer OTHER ==
[~2022-10-16] MED LIST changes: +ROPIVACAINE 5 MG/ML 20 ML AMPULE ONE; +methylPREDNISolone ACETATE 40 MG/ML 1 ML VIAL ONE
[2022-10-16 10:04] VITALS: RESP 16; TEMP 97.1
[2022-10-16 10:12] LABS: Glucose,Whole Blood 111 mg/dL (70-110)
[2022-10-16 10:37] VITALS: BP 113/66; PULSE 68
--- NOTE | 2022-10-16 10:38 | P.PCN ---
Date of Procedure: 10/16/22 Procedure(s) Performed: Procedure= trigger point injections cervical paraspinal muscles bilaterally , 6 on the right side from C2 to T1, and 3 on the left side from C2 to T1 Preoperative diagnosis= 1-myofascial pain syndrome cervical paraspinal muscles 2-cervical degenerative disc disease 3-cervical facet arthropathy Postoperative diagnosis=Same as preop Diagnosis . Complication = none Condition= stable Anesthesia= none Indication for the procedure= patient complaining of neck pain , examination was positive for multiple trigger point in the cervical paraspinal muscles bilaterally and patient diagnosed with myofascial pain syndrome and is here to have trigger point injections Description of the procedure= procedure risk and benefits discussed with the patient, including but not limited, risk of infection and bleeding, and ALLERGIC reaction to the medication and not complete pain relief and patient agreed with the preceding patient taken to the operating room, placed in sitting position or standard monitors applied to the patient then after induction of anesthesia back prepped with chlorhexidine 3 times , then under sterile technique each of the trigger point that was marked in the preop holding area 6 on the right side cervical paraspinal muscles and 3 on the left side cervical paraspinal muscles each one of them injected with the 2 mL of the mixture of ropivacaine 0.5% 18 ML mixed with 40 mg of Depo-Medrol and 2 mL of the mixture injected at each trigger point after negative aspiration, using 25-gauge needle, injection done after negative aspiration under was no paresthesia during the injection patient tolerated the procedure well without any complications and he will follow up in the pain clinic in a few weeks
== END ==
LOC: ORPAIN 09:34
PROVIDERS: ATTEND Specialist
DX: M50.33 Other cervical disc degeneration, cervicothoracic region (principal); M47.812 Spondylosis without myelopathy or radiculopathy, cervical region; M79.18 Myalgia, other site; Z91.041 Radiographic dye allergy status
CPT/HCPCS: 81025; 20553; J1030; J2795

== ENCOUNTER → 2022-11-26 | Outpatient (CLI) | payer OTHER ==
[2022-11-26 10:38] VITALS: BP 128/85; PULSE 61; RESP 16; TEMP 98.3
--- NOTE | 2022-11-26 15:39 | P.PAINPG ---
PQRS Measure Charge Sheet Comment: A 46 yr old female with a history of severe and chronic neck pain x yrs secondary to cervical DDD and spondylosis with facet arthropathy without myelopathy presents today for medication refills and evaluation s/p Cervical TPIs #2. Pt states she experienced 80 % pain relief x 2-3 wks s/p procedure. Pain level is provoked at 7/10 in intensity, constant, localized in the cervical spine, throbbing in character w/o shooting pain. Pain is provoked by lifting, forward flexion. Pain is alleviated with PT integrated w massage x 6 wks in Dec 2021, heat, ice, medications, reclining, repositioning and rest. Oswestry axial pain score of 19. Interventional pain procedures completed include BL RFA C4-C6, RANDALL C6-C7 x2, Cervical TPIs x2 Patient is currently on [place], Ibu Patient denies any side effects of the medication(s), denies excessive drowsiness or sleepiness, denies suicidal ideation and reports that the current pain medication is helping to control the pain and improve activities of daily living. Patient denies any motor or sensory deficits. Patient denies any fever or night sweats, denies any change in the bowel movements or urination. Physical Examination: -Constitutional: Cooperative. Not in acute distress . - Neurologic: Cranial nerve II to XII intact. No focal neurological deficits. - Psychatric: Alert & oriented x 3. Matching mood & appropriate affect. Judgment and insight intact. - Musculoskeletal: Cervical spine: Muscle bulk/ tone/ strength in the bilateral upper extremities normal Vertebral body tenderness to palpation over Spurling test positive Distraction test positive Taut bands w twitch response over BL C2-T1 paraspinal muscles Facet loading test Thoracic spine Muscle bulk / tone/ strength in the bilateral paraspinal muscles normal Vertebral body tender to palpation over Facet loading test positive TTP Lumbar spine: Motor bulk/ tone/ strength lower extremities , thigh and legs : 5/5 Deep tendon reflexes : Normal Knee Jerk. Normal Ankle Jerk . Vertebral body tenderness to palpation over Lumbar Facet Loading Test positive Straight Leg Raise: positive at 30 degrees right side/ left side Gaenslen's Test positive Sacral spine : Severe tenderness over the Sacroiliac joint: right side / left side Range of motion: Flexion of the lumbar spine <60 degrees Range of motion: Extension of the lumbar spine <20 degrees Gaenslen's Test positive R / L Maxime test: positive right side / left side Thigh Thrust Test positive R / L Sacral Thrust Test positive R/ L Assessment and plan: Chronic neck pain secondary to cervical DDD, spondylosis with facet arthropathy without myelopathy Recommendation of BL cervical TPIs C2-T1 #3. May need a series of injections for optimal pain relief. Risks, benefits of procedure discussed and pt verbalized understanding. Admits to anti inflammatory use and medical history of diabetes. Protocol for discontinuation/ continuation of medications hammad procedure discussed. Chronic and current use of high-risk medication (Opioids). The patient was counseled about risk of opioid use, psychological risk associated with opioids and was orally counseled to not overuse , divert or sell medications. Pt is to store medication in a safe location. The patient is counseled against driving while using narcotic medications and also not to use alcohol or any illicit recreational drugs. Patient verbalized understanding that the lack of compliance will result in failure to renew narcotic prescription(s) as well as possible discharge from the clinic Diagnoses, prognosis and treatment options including but not limited to physical therapy, surgical interventions, interventional therapies and medication management including narcotics and adjuvant medication were discussed. All patient questions answered MAPS reviewed and it was appropriate. Blood from 08/06/22 reviewed and consistent. Prescription refill for [place] 10/325mg # 60 w 1 RF I have spent less than 30 minutes on patient care today. Dr Rice was available by phone for the evaluation of this patient. The time was used to review the medical records including relevant urine studies and Prescription history (MAPs), review of the available imaging, evaluation and examination of the patient, coordination of care with the medical staff and if applicable referring physicians, as well as creation of the medical record PQRS Narrative: Smoking Status Current every day smoker Narcotic Agreement Date Signed 06/11/22 Hx Alcohol Use (MH) No Home Medications: Ambulatory Orders Ibuprofen [Motrin] 800 mg PO BID PRN 11/05/19 Benztropine Mesylate [Cogentin] 0.5 mg PO BID 14 Days tab 11/10/19 lamoTRIgine [LaMICtal] 200 mg PO BID 14 Days tab 11/10/19 Albuterol Inhaler [Ventolin Hfa Inhaler] 1 puff INHALATION RT-QID PRN #1 inhaler 01/22/20 ALPRAZolam [Xanax] 1 mg PO BID 06/12/21 Brexpiprazole [Rexulti] 4 mg PO DAILY 06/12/21 Furosemide [Lasix] 40 mg PO DAILY 06/12/21 Budesonide-Formot 160-4.5 Mcg [Symbicort 160-4.5 Mcg Inhaler] 2 puff INHALATION BID 12/18/21 metFORMIN HCL 500 mg PO BID 12/18/21 buPROPion XL [Wellbutrin XL] 300 mg PO DAILY 03/21/22 haloperidoL [Haldol] 5 mg PO HS 03/21/22 HYDROcodone/APAP 10-325MG [[place] 10-325] 1 tab PO BID PRN 30 Days #60 tab 10/01/22 Atorvastatin [Lipitor] 40 mg PO HS 10/10/22 Losartan [Cozaar] 25 mg PO DAILY 10/10/22 Controlled Substance Measures - Controlled Substance Measures Is patient prescribed a controlled substance at discharge?: Yes When asked, does pt state using other controlled substances?: No If prescribed controlled substance>3 days was MAPS reviewed?: Yes
== END ==
LOC: PNWHC3 09:44
PROVIDERS: ATTEND Specialist
DX: M50.33 Other cervical disc degeneration, cervicothoracic region (principal); M47.813 Spondylosis without myelopathy or radiculopathy, cervicothoracic region; G89.29 Other chronic pain; F17.200 Nicotine dependence, unspecified, uncomplicated; Z79.891 Long term (current) use of opiate analgesic; Z91.048 Other nonmedicinal substance allergy status; Z91.041 Radiographic dye allergy status
CPT/HCPCS: 99211

== ENCOUNTER → 2023-01-21 | Outpatient (CLI) | payer OTHER ==
[2023-01-21 10:40] VITALS: BP 153/84; PULSE 63; RESP 16; TEMP 98.6
--- NOTE | 2023-01-21 14:55 | P.PAINPG ---
PQRS Measure Charge Sheet Comment: A 46 yr old female with a history of severe and chronic neck pain x yrs secondary to cervical DDD and spondylosis with facet arthropathy without myelopathy presents today for medication refills and evaluation s/p Cervical TPIs #3. Pt states she experienced 80 % pain relief x 3 wks s/p procedure. Pain level is provoked at 8/10 in intensity, constant, localized in the cervical spine, predominantly axial, throbbing in character w shooting pain towards the BUEs. Pain is provoked by lifting, forward flexion. Pain is alleviated with PT integrated w massage x 6 wks in Dec 2021, heat, ice, medications, reclining, repositioning and rest. Oswestry axial pain score of 31. Interventional pain procedures completed include BL RFA C4-C6, RANDALL C6-C7 x2, Cervical TPIs x3 Patient is currently on [place] 10/325mg #60, Ibu Patient denies any side effects of the medication(s), denies excessive drowsiness or sleepiness, denies suicidal ideation and reports that the current pain medication is helping to control the pain and improve activities of daily living. Patient denies any motor or sensory deficits. Patient denies any fever or night sweats, denies any change in the bowel movements or urination. Physical Examination: -Constitutional: Cooperative. Not in acute distress . - Neurologic: Cranial nerve II to XII intact. No focal neurological deficits. - Psychatric: Alert & oriented x 3. Matching mood & appropriate affect. Judgment and insight intact. - Musculoskeletal: Cervical spine: Muscle bulk/ tone/ strength in the bilateral upper extremities normal Vertebral body tenderness to palpation over Spurling test positive Distraction test positive Taut bands w twitch response over BL C2-T1 paraspinal muscles Facet loading test Thoracic spine Muscle bulk / tone/ strength in the bilateral paraspinal muscles normal Vertebral body tender to palpation over Facet loading test positive TTP Lumbar spine: Motor bulk/ tone/ strength lower extremities , thigh and legs : 5/5 Deep tendon reflexes : Normal Knee Jerk. Normal Ankle Jerk . Vertebral body tenderness to palpation over Lumbar Facet Loading Test positive Straight Leg Raise: positive at 30 degrees right side/ left side Gaenslen's Test positive Sacral spine : Severe tenderness over the Sacroiliac joint: right side / left side Range of motion: Flexion of the lumbar spine <60 degrees Range of motion: Extension of the lumbar spine <20 degrees Gaenslen's Test positive R / L Maxime test: positive right side / left side Thigh Thrust Test positive R / L Sacral Thrust Test positive R/ L Assessment and plan: Chronic neck pain secondary to cervical DDD, spondylosis with facet arthropathy without myelopathy Recommendation of BL cervical TPIs C2-T1 #4. May need a series of injections for optimal pain relief. Risks, benefits of procedure discussed and pt verbalized understanding. Admits to anti inflammatory use and medical history of diabetes. Protocol for discontinuation/ continuation of medications hammad procedure discussed. Chronic and current use of high-risk medication (Opioids). The patient was counseled about risk of opioid use, psychological risk associated with opioids and was orally counseled to not overuse , divert or sell medications. Pt is to store medication in a safe location. The patient is counseled against driving while using narcotic medications and also not to use alcohol or any illicit recreational drugs. Patient verbalized understanding that the lack of compliance will result in failure to renew narcotic prescription(s) as well as possible discharge from the clinic Diagnoses, prognosis and treatment options including but not limited to physical therapy, surgical interventions, interventional therapies and medication management including narcotics and adjuvant medication were discussed. All patient questions answered MAPS reviewed and it was appropriate. UDS collected 01/21/23. Prescription refill for [place] 10/325mg # 60 w 1 RF I have spent less than 30 minutes on patient care today. Dr Rice was available by phone for the evaluation of this patient. The time was used to review the medical records including relevant urine studies and Prescription history (MAPs), review of the available imaging, evaluation and examination of the patient, coordination of care with the medical staff and if applicable referring physicians, as well as creation of the medical record PQRS Narrative: Smoking Status Current every day smoker Narcotic Agreement Date Signed 06/11/22 Hx Alcohol Use (MH) No Home Medications: Ambulatory Orders Ibuprofen [Motrin] 800 mg PO BID PRN 11/05/19 Benztropine Mesylate [Cogentin] 0.5 mg PO BID 14 Days tab 11/10/19 lamoTRIgine [LaMICtal] 200 mg PO BID 14 Days tab 11/10/19 Albuterol Inhaler [Ventolin Hfa Inhaler] 1 puff INHALATION RT-QID PRN #1 inhaler 01/22/20 ALPRAZolam [Xanax] 1 mg PO BID 06/12/21 Brexpiprazole [Rexulti] 4 mg PO QAM 06/12/21 Furosemide [Lasix] 40 mg PO QAM 06/12/21 Budesonide-Formot 160-4.5 Mcg [Symbicort 160-4.5 Mcg Inhaler] 2 puff INHALATION BID 12/18/21 metFORMIN HCL 500 mg PO BID 12/18/21 buPROPion XL [Wellbutrin XL] 300 mg PO QAM 03/21/22 haloperidoL [Haldol] 5 mg PO HS 03/21/22 Atorvastatin [Lipitor] 40 mg PO HS 10/10/22 Losartan [Cozaar] 25 mg PO QAM 10/10/22 HYDROcodone/APAP 10-325MG [[place] 10-325] 1 tab PO BID PRN 30 Days #60 tab 01/21/23 HYDROcodone/APAP 10-325MG [[place] 10-325] 1 tab PO BID PRN 30 Days #60 tab 01/21/23 Controlled Substance Measures - Controlled Substance Measures Is patient prescribed a controlled substance at discharge?: Yes When asked, does pt state using other controlled substances?: Yes If prescribed controlled substance>3 days was MAPS reviewed?: Yes
== END ==
LOC: PNWHC3 09:50
PROVIDERS: ATTEND Specialist
DX: M50.33 Other cervical disc degeneration, cervicothoracic region (principal); M47.813 Spondylosis without myelopathy or radiculopathy, cervicothoracic region; G89.29 Other chronic pain; F17.200 Nicotine dependence, unspecified, uncomplicated; Z79.891 Long term (current) use of opiate analgesic; Z91.048 Other nonmedicinal substance allergy status; Z91.041 Radiographic dye allergy status; Z51.81 Encounter for therapeutic drug level monitoring
CPT/HCPCS: 80307; G0463; 99212

== ENCOUNTER 2023-02-19 09:46 | Day surgery (SDC) | payer OTHER ==
[2023-02-03 08:55] VITALS: BMI 42.3
[~2023-02-19 09:46] MED LIST changes: -ROPIVACAINE 5 MG/ML 20 ML AMPULE ONE; -methylPREDNISolone ACETATE 40 MG/ML 1 ML VIAL ONE
[2023-02-19 10:13] VITALS: TEMP 98
[2023-02-19 10:14] LABS: Glucose,Whole Blood 100 mg/dL (70-110)
[2023-02-19] MEDS ORDERED: methylPREDNISolone ACETATE 40 MG/ML 1 ML VIAL ONE (10:36)
[2023-02-19] MEDS ORDERED: ROPIVACAINE 5MG/ML 20ML VIAL ONE (10:36)
--- NOTE | 2023-02-19 10:48 | P.PCN ---
Date of Procedure: 02/19/23 Procedure(s) Performed: Procedure= trigger point injections cervical paraspinal muscles bilaterally , 6 on the right side from C2 to T1, and 4 on the left side from C2 to T1. Preoperative diagnosis= 1-myofascial pain syndrome cervical paraspinal muscles 2-cervical degenerative disc disease 3-cervical facet arthropathy Postoperative diagnosis=Same as preop Diagnosis . Complication = none Condition= stable Anesthesia= none Indication for the procedure= patient complaining of neck pain , examination was positive for multiple trigger point in the cervical paraspinal muscles bilaterally and patient diagnosed with myofascial pain syndrome and is here to have trigger point injections Description of the procedure= procedure risk and benefits discussed with the patient, including but not limited, risk of infection and bleeding, and ALLERGIC reaction to the medication and not complete pain relief and patient agreed with the preceding patient taken to the operating room, placed in sitting position or standard monitors applied to the patient then after induction of anesthesia back prepped with chlorhexidine 3 times , then under sterile technique each of the trigger point that was marked in the preop holding area 6 on the right side cervical paraspinal muscles and 4 on the left side cervical paraspinal muscles each one of them injected with the 2 mL of the mixture of ropivacaine 0.5% 20 ML mixed with 40 mg of Depo-Medrol and 2 mL of the mixture injected at each trigger point after negative aspiration, using 25-gauge needle, injection done after negative aspiration under was no paresthesia during the injection patient tolerated the procedure well without any complications and he will follow up in the pain clinic in a few weeks
[2023-02-19 11:02] VITALS: RESP 18
[2023-02-19 11:26] VITALS: BP 135/85; PULSE 62
== END 2023-02-19 11:10 | disposition home or self-care (01) ==
LOC: ORPAIN 09:46
PROVIDERS: ATTEND Specialist
DX: M54.12 Radiculopathy, cervical region (principal); E11.9 Type 2 diabetes mellitus without complications; Z91.040 Latex allergy status; Z88.8 Allergy status to other drugs, medicaments and biological substances
CPT/HCPCS: 81025; 20553; J1030; J2795

== ENCOUNTER → 2023-03-19 | Outpatient (CLI) | payer OTHER ==
[2023-03-19 11:03] VITALS: BP 128/85; PULSE 76; RESP 16; TEMP 97.5
--- NOTE | 2023-03-19 13:26 | P.PAINPG ---
PQRS Measure Charge Sheet Comment: A 47 yr old female with a history of severe and chronic neck pain x yrs secondary to cervical DDD and spondylosis with facet arthropathy without myelopathy presents today for medication refills and evaluation s/p Cervical TPIs #4 and medication refills. Pt states she experienced 80 % pain relief x 3-4 wks s/p procedure. Pain level is provoked at 8/10 in intensity, constant, localized in the cervical spine, predominantly axial, throbbing in character w occasional shooting pain towards the BUEs. Pain is provoked by lifting, forward flexion. Pain is alleviated with PT integrated w massage x 6 wks in Dec 2021, heat, ice, medications, reclining, repositioning and rest. Cervical disability score of 31. Interventional pain procedures completed include BL RFA C4-C6, RANDALL C6-C7 x2, Cervical TPIs x4 Patient is currently on [place] 10/325mg #60, Ibu Patient denies any side effects of the medication(s), denies excessive drowsiness or sleepiness, denies suicidal ideation and reports that the current pain medication is helping to control the pain and improve activities of daily living. Patient denies any motor or sensory deficits. Patient denies any fever or night sweats, denies any change in the bowel movements or urination. Physical Examination: -Constitutional: Cooperative. Not in acute distress . - Neurologic: Cranial nerve II to XII intact. No focal neurological deficits. - Psychatric: Alert & oriented x 3. Matching mood & appropriate affect. Judgment and insight intact. - Musculoskeletal: Cervical spine: Muscle bulk/ tone/ strength in the bilateral upper extremities normal Vertebral body tenderness to palpation over Spurling test positive Distraction test positive Taut bands w twitch response over BL C2-T1 paraspinal muscles Facet loading test Thoracic spine Muscle bulk / tone/ strength in the bilateral paraspinal muscles normal Vertebral body tender to palpation over Facet loading test positive TTP Lumbar spine: Motor bulk/ tone/ strength lower extremities , thigh and legs : 5/5 Deep tendon reflexes : Normal Knee Jerk. Normal Ankle Jerk . Vertebral body tenderness to palpation over Lumbar Facet Loading Test positive Straight Leg Raise: positive at 30 degrees right side/ left side Gaenslen's Test positive Sacral spine : Severe tenderness over the Sacroiliac joint: right side / left side Range of motion: Flexion of the lumbar spine <60 degrees Range of motion: Extension of the lumbar spine <20 degrees Gaenslen's Test positive R / L Maxime test: positive right side / left side Thigh Thrust Test positive R / L Sacral Thrust Test positive R/ L Assessment and plan: Chronic neck pain secondary to cervical DDD, spondylosis with facet arthropathy without myelopathy Chronic and current use of high-risk medication (Opioids). The patient was counseled about risk of opioid use, psychological risk associated with opioids and was orally counseled to not overuse , divert or sell medications. Pt is to store medication in a safe location. The patient is counseled against driving while using narcotic medications and also not to use alcohol or any illicit recreational drugs. Patient verbalized understanding that the lack of compliance will result in failure to renew narcotic prescription(s) as well as possible discharge from the clinic Diagnoses, prognosis and treatment options including but not limited to physical therapy, surgical interventions, interventional therapies and medication management including narcotics and adjuvant medication were discussed. All patient questions answered MAPS reviewed and it was appropriate. UDS fr 01/21/23 reviewed and consistent. Prescription refill for [place] 10/325mg # 60 w 1 RF I have spent less than 30 minutes on patient care today. Dr Rice was available by phone for the evaluation of this patient. The time was used to review the medical records including relevant urine studies and Prescription history (MAPs), review of the available imaging, evaluation and examination of the patient, coordination of care with the medical staff and if applicable referring physicians, as well as creation of the medical record - Pain Location Bilateral Lower Neck Non-Pharmacological Interventions: Heat, Ice, Inactivity, Physical Therapy, Sitting Pharmacological Interventions: Epidural, Scheduled Medication PQRS Narrative: Smoking Status Current every day smoker Narcotic Agreement Date Signed 06/11/22 Hx Alcohol Use (MH) No Home Medications: Ambulatory Orders Ibuprofen [Motrin] 800 mg PO BID PRN 11/05/19 Benztropine Mesylate [Cogentin] 0.5 mg PO BID 14 Days tab 11/10/19 lamoTRIgine [LaMICtal] 200 mg PO BID 14 Days tab 11/10/19 Albuterol Inhaler [Ventolin Hfa Inhaler] 1 puff INHALATION RT-QID PRN #1 inhaler 01/22/20 ALPRAZolam [Xanax] 1 mg PO BID 06/12/21 Brexpiprazole [Rexulti] 4 mg PO QAM 06/12/21 Furosemide [Lasix] 40 mg PO QAM 06/12/21 Budesonide-Formot 160-4.5 Mcg [Symbicort 160-4.5 Mcg Inhaler] 2 puff INHALATION BID 12/18/21 metFORMIN HCL 500 mg PO BID 12/18/21 buPROPion XL [Wellbutrin XL] 300 mg PO QAM 03/21/22 haloperidoL [Haldol] 5 mg PO HS 03/21/22 Atorvastatin [Lipitor] 40 mg PO HS 10/10/22 Losartan [Cozaar] 25 mg PO QAM 10/10/22 HYDROcodone/APAP 10-325MG [[place] 10-325] 1 tab PO BID PRN 30 Days #60 tab 03/19/23 HYDROcodone/APAP 10-325MG [[place] 10-325] 1 tab PO BID PRN 30 Days #60 tab 03/19/23 Controlled Substance Measures - Controlled Substance Measures Is patient prescribed a controlled substance at discharge?: Yes When asked, does pt state using other controlled substances?: No If prescribed controlled substance>3 days was MAPS reviewed?: Yes
== END ==
LOC: PNWHC3 09:09
PROVIDERS: ATTEND Specialist
DX: M50.33 Other cervical disc degeneration, cervicothoracic region (principal); M47.813 Spondylosis without myelopathy or radiculopathy, cervicothoracic region; G89.29 Other chronic pain; F17.200 Nicotine dependence, unspecified, uncomplicated; Z79.891 Long term (current) use of opiate analgesic; Z91.048 Other nonmedicinal substance allergy status; Z91.041 Radiographic dye allergy status
CPT/HCPCS: 99211

== ENCOUNTER → 2023-05-14 | Outpatient (CLI) | payer OTHER ==
[2023-05-14 10:31] VITALS: BP 142/82; PULSE 89; RESP 16; TEMP 98.5
--- NOTE | 2023-05-14 14:16 | P.PAINPG ---
PQRS Measure Charge Sheet Comment: A 47 yr old female with a history of severe and chronic neck pain x yrs secondary to cervical DDD and spondylosis with facet arthropathy without myelopathy presents today for medication refills. Pain level is provoked at 6 /10 in intensity, constant, localized in the cervical spine, predominantly axial, throbbing in character w occasional shooting pain towards the BL shoulders. Pain is provoked by lifting, forward flexion. Pain is alleviated with PT integrated w massage x 6 wks in Dec 2021, heat, ice, medications, reclining, repositioning and rest. Cervical disability score of 31. Interventional pain procedures completed include BL RFA C4-C6, RANDALL C6-C7 x2, Cervical TPIs x4 Patient is currently on [place] 10/325mg #60, Ibu Patient denies any side effects of the medication(s), denies excessive drowsiness or sleepiness, denies suicidal ideation and reports that the current pain medication is helping to control the pain and improve activities of daily living. Patient denies any motor or sensory deficits. Patient denies any fever or night sweats, denies any change in the bowel movements or urination. Physical Examination: -Constitutional: Cooperative. Not in acute distress . - Neurologic: Cranial nerve II to XII intact. No focal neurological deficits. - Psychatric: Alert & oriented x 3. Matching mood & appropriate affect. Judgment and insight intact. - Musculoskeletal: Cervical spine: Muscle bulk/ tone/ strength in the bilateral upper extremities normal Vertebral body tenderness to palpation over Spurling test positive Distraction test positive Taut bands w twitch response Facet loading test Thoracic spine Muscle bulk / tone/ strength in the bilateral paraspinal muscles normal Vertebral body tender to palpation over Facet loading test positive TTP Lumbar spine: Motor bulk/ tone/ strength lower extremities , thigh and legs : 5/5 Deep tendon reflexes : Normal Knee Jerk. Normal Ankle Jerk . Vertebral body tenderness to palpation over Lumbar Facet Loading Test positive Straight Leg Raise: positive at 30 degrees right side/ left side Gaenslen's Test positive Sacral spine : Severe tenderness over the Sacroiliac joint: right side / left side Range of motion: Flexion of the lumbar spine <60 degrees Range of motion: Extension of the lumbar spine <20 degrees Gaenslen's Test positive R / L Maxime test: positive right side / left side Thigh Thrust Test positive R / L Sacral Thrust Test positive R/ L Assessment and plan: Chronic neck pain secondary to cervical DDD, spondylosis with facet arthropathy without myelopathy Chronic and current use of high-risk medication (Opioids). The patient was counseled about risk of opioid use, psychological risk associated with opioids and was orally counseled to not overuse , divert or sell medications. Pt is to store medication in a safe location. The patient is counseled against driving while using narcotic medications and also not to use alcohol or any illicit recreational drugs. Patient verbalized understanding that the lack of compliance will result in failure to renew narcotic prescription(s) as well as possible discharge from the clinic Diagnoses, prognosis and treatment options including but not limited to physical therapy, surgical interventions, interventional therapies and medication management including narcotics and adjuvant medication were discussed. All patient questions answered MAPS reviewed and it was appropriate. UDS fr 01/21/23 reviewed and consistent. Prescription refill for [place] 10/325mg # 60 w 1 RF I have spent less than 30 minutes on patient care today. Dr Rice was available by phone for the evaluation of this patient. The time was used to review the medical records including relevant urine studies and Prescription history (MAPs), review of the available imaging, evaluation and examination of the patient, coordination of care with the medical staff and if applicable referring physicians, as well as creation of the medical record - Pain Location Bilateral Neck Non-Pharmacological Interventions: Inactivity, Position/Reposition Pharmacological Interventions: Epidural, Scheduled Medication PQRS Narrative: Smoking Status Current every day smoker Narcotic Agreement Date Signed 06/11/22 Hx Alcohol Use (MH) No Home Medications: Ambulatory Orders Ibuprofen [Motrin] 800 mg PO BID PRN 11/05/19 Benztropine Mesylate [Cogentin] 0.5 mg PO BID 14 Days tab 11/10/19 lamoTRIgine [LaMICtal] 200 mg PO BID 14 Days tab 11/10/19 Albuterol Inhaler [Ventolin Hfa Inhaler] 1 puff INHALATION RT-QID PRN #1 inhaler 01/22/20 ALPRAZolam [Xanax] 1 mg PO BID 06/12/21 Brexpiprazole [Rexulti] 4 mg PO QAM 06/12/21 Furosemide [Lasix] 40 mg PO QAM 06/12/21 Budesonide-Formot 160-4.5 Mcg [Symbicort 160-4.5 Mcg Inhaler] 2 puff INHALATION BID 12/18/21 metFORMIN HCL 500 mg PO BID 12/18/21 buPROPion XL [Wellbutrin XL] 300 mg PO QAM 03/21/22 haloperidoL [Haldol] 5 mg PO HS 03/21/22 Atorvastatin [Lipitor] 40 mg PO HS 10/10/22 Losartan [Cozaar] 25 mg PO QAM 10/10/22 HYDROcodone/APAP 10-325MG [[place] 10-325] 1 tab PO BID PRN 30 Days #60 tab 05/14/23 HYDROcodone/APAP 10-325MG [[place] 10-325] 1 tab PO BID PRN 30 Days #60 tab 05/14/23 Controlled Substance Measures - Controlled Substance Measures Is patient prescribed a controlled substance at discharge?: Yes When asked, does pt state using other controlled substances?: Yes If prescribed controlled substance>3 days was MAPS reviewed?: Yes
== END ==
LOC: PNWHC3 08:58
PROVIDERS: ATTEND Specialist
DX: M50.30 Other cervical disc degeneration, unspecified cervical region (principal); M47.812 Spondylosis without myelopathy or radiculopathy, cervical region; G89.29 Other chronic pain; F17.200 Nicotine dependence, unspecified, uncomplicated; Z79.891 Long term (current) use of opiate analgesic; Z91.048 Other nonmedicinal substance allergy status; Z91.041 Radiographic dye allergy status
CPT/HCPCS: 99211

== ENCOUNTER → 2023-07-13 | Outpatient (CLI) | payer OTHER ==
[2023-07-13 10:50] VITALS: BP 134/62; PULSE 79; RESP 15; TEMP 98.5
--- NOTE | 2023-07-13 14:10 | P.PAINPG ---
Objective - Vital Signs Vital signs: Intake & Output 07/12/23 07/13/23 07/13/23 18:59 06:59 18:59 Weight 110.223 kg PQRS Measure Charge Sheet Comment: A 47 yr old female with a history of severe and chronic neck pain x yrs secondary to cervical DDD and spondylosis with facet arthropathy without myelopathy presents today for medication refills. Pain level is provoked at 8 /10 in intensity, constant, localized in the cervical spine, predominantly axial, throbbing in character w occasional shooting pain towards the BL shoulders. Pain is provoked by lifting, forward flexion. Pain is alleviated with PT integrated w massage x 6 wks in Dec 2021, heat, ice, medications, reclining, repositioning and rest. Cervical disability score of 31. Interventional pain procedures completed include BL RFA C4-C6, RANDALL C6-C7 x2, Cervical TPIs x4 Patient is currently on [place] 10/325mg #60, Ibu Patient denies any side effects of the medication(s), denies excessive drowsiness or sleepiness, denies suicidal ideation and reports that the current pain medication is helping to control the pain and improve activities of daily living. Patient denies any motor or sensory deficits. Patient denies any fever or night sweats, denies any change in the bowel movements or urination. Physical Examination: -Constitutional: Cooperative. Not in acute distress . - Neurologic: Cranial nerve II to XII intact. No focal neurological deficits. - Psychatric: Alert & oriented x 3. Matching mood & appropriate affect. Judgment and insight intact. - Musculoskeletal: Cervical spine: Muscle bulk/ tone/ strength in the bilateral upper extremities normal Vertebral body tenderness to palpation over Spurling test positive Distraction test positive Taut bands w twitch response Facet loading test Thoracic spine Muscle bulk / tone/ strength in the bilateral paraspinal muscles normal Vertebral body tender to palpation over Facet loading test positive TTP Lumbar spine: Motor bulk/ tone/ strength lower extremities , thigh and legs : 5/5 Deep tendon reflexes : Normal Knee Jerk. Normal Ankle Jerk . Vertebral body tenderness to palpation over Lumbar Facet Loading Test positive Straight Leg Raise: positive at 30 degrees right side/ left side Gaenslen's Test positive Sacral spine : Severe tenderness over the Sacroiliac joint: right side / left side Range of motion: Flexion of the lumbar spine <60 degrees Range of motion: Extension of the lumbar spine <20 degrees Gaenslen's Test positive R / L Maxime test: positive right side / left side Thigh Thrust Test positive R / L Sacral Thrust Test positive R/ L Assessment and plan: Chronic neck pain secondary to cervical DDD, spondylosis with facet arthropathy without myelopathy Chronic and current use of high-risk medication (Opioids). The patient was counseled about risk of opioid use, psychological risk associated with opioids and was orally counseled to not overuse , divert or sell medications. Pt is to store medication in a safe location. The patient is counseled against driving while using narcotic medications and also not to use alcohol or any illicit recreational drugs. Patient verbalized understanding that the lack of compliance will result in failure to renew narcotic prescription(s) as well as possible discharge from the clinic Diagnoses, prognosis and treatment options including but not limited to physical therapy, surgical interventions, interventional therapies and medication management including narcotics and adjuvant medication were discussed. All patient questions answered MAPS reviewed and it was appropriate. UDS fr 01/21/23 reviewed and consistent. Prescription refill for [place] 10/325mg # 60 w 1 RF I have spent less than 30 minutes on patient care today. Dr Rice was available by phone for the evaluation of this patient. The time was used to review the medical records including relevant urine studies and Prescription history (MAPs), review of the available imaging, evaluation and examination of the patient, coordination of care with the medical staff and if applicable referring physicians, as well as creation of the medical record PQRS Narrative: Smoking Status Current every day smoker Narcotic Agreement Date Signed 06/11/22 Hx Alcohol Use (MH) No Home Medications: Ambulatory Orders Ibuprofen [Motrin] 800 mg PO BID PRN 11/05/19 Benztropine Mesylate [Cogentin] 0.5 mg PO BID 14 Days tab 11/10/19 lamoTRIgine [LaMICtal] 200 mg PO BID 14 Days tab 11/10/19 Albuterol Inhaler [Ventolin Hfa Inhaler] 1 puff INHALATION RT-QID PRN #1 inhaler 01/22/20 ALPRAZolam [Xanax] 1 mg PO BID 06/12/21 Brexpiprazole [Rexulti] 4 mg PO QAM 06/12/21 Furosemide [Lasix] 40 mg PO QAM 06/12/21 Budesonide-Formot 160-4.5 Mcg [Symbicort 160-4.5 Mcg Inhaler] 2 puff INHALATION BID 12/18/21 metFORMIN HCL 500 mg PO BID 12/18/21 buPROPion XL [Wellbutrin XL] 300 mg PO QAM 03/21/22 haloperidoL [Haldol] 5 mg PO HS 03/21/22 Atorvastatin [Lipitor] 40 mg PO HS 10/10/22 Losartan [Cozaar] 25 mg PO QAM 10/10/22 HYDROcodone/APAP 5-325MG [[place] 5-325] 1 tab PO BID PRN 30 Days #120 tab 05/18/23 HYDROcodone/APAP 10-325MG [[place] 10-325] 1 tab PO BID PRN 30 Days #60 tab 07/13/23 HYDROcodone/APAP 10-325MG [[place] 10-325] 1 tab PO BID PRN 30 Days #60 tab 07/13/23 Controlled Substance Measures - Controlled Substance Measures Is patient prescribed a controlled substance at discharge?: Yes When asked, does pt state using other controlled substances?: No If prescribed controlled substance>3 days was MAPS reviewed?: Yes
== END ==
LOC: PNWHC3 09:26
PROVIDERS: ATTEND Specialist
DX: M50.30 Other cervical disc degeneration, unspecified cervical region (principal); M47.812 Spondylosis without myelopathy or radiculopathy, cervical region; M48.02 Spinal stenosis, cervical region; G89.29 Other chronic pain; F17.200 Nicotine dependence, unspecified, uncomplicated; Z79.891 Long term (current) use of opiate analgesic; Z91.048 Other nonmedicinal substance allergy status; Z91.041 Radiographic dye allergy status
CPT/HCPCS: 99211

== ENCOUNTER → 2023-09-07 | Outpatient (CLI) | payer OTHER ==
[2023-09-07 09:28] VITALS: BP 142/63; PULSE 62; RESP 16
--- NOTE | 2023-09-07 14:59 | P.PAINPG ---
PQRS Measure Charge Sheet Comment: A 47 yr old female with a history of severe and chronic neck pain x yrs secondary to cervical DDD and spondylosis with facet arthropathy without myelopathy presents today for medication refills. Pain level is provoked at 6 /10 in intensity, constant, localized in the cervical spine, predominantly axial, throbbing in character w occasional shooting pain towards the BL shoulders. Pain is provoked by lifting, forward flexion. Pain is alleviated with PT integrated w massage x 6 wks in Dec 2021, heat, ice, medications, reclining, repositioning and rest. Cervical disability score of 31. Interventional pain procedures completed include BL RFA C4-C6, RANDALL C6-C7 x2, Cervical TPIs x4 Patient is currently on [place] 10/325mg #60, Ibu Patient denies any side effects of the medication(s), denies excessive drowsiness or sleepiness, denies suicidal ideation and reports that the current pain medication is helping to control the pain and improve activities of daily living. Patient denies any motor or sensory deficits. Patient denies any fever or night sweats, denies any change in the bowel movements or urination. Physical Examination: -Constitutional: Cooperative. Not in acute distress . - Neurologic: Cranial nerve II to XII intact. No focal neurological deficits. - Psychatric: Alert & oriented x 3. Matching mood & appropriate affect. Judgment and insight intact. - Musculoskeletal: Cervical spine: Muscle bulk/ tone/ strength in the bilateral upper extremities normal Vertebral body tenderness to palpation over Spurling test positive Distraction test positive Taut bands w twitch response Facet loading test Thoracic spine Muscle bulk / tone/ strength in the bilateral paraspinal muscles normal Vertebral body tender to palpation over Facet loading test positive TTP Lumbar spine: Motor bulk/ tone/ strength lower extremities , thigh and legs : 5/5 Deep tendon reflexes : Normal Knee Jerk. Normal Ankle Jerk . Vertebral body tenderness to palpation over Lumbar Facet Loading Test positive Straight Leg Raise: positive at 30 degrees right side/ left side Gaenslen's Test positive Sacral spine : Severe tenderness over the Sacroiliac joint: right side / left side Range of motion: Flexion of the lumbar spine <60 degrees Range of motion: Extension of the lumbar spine <20 degrees Gaenslen's Test positive R / L Maxime test: positive right side / left side Thigh Thrust Test positive R / L Sacral Thrust Test positive R/ L Assessment and plan: Chronic neck pain secondary to cervical DDD, spondylosis with facet arthropathy without myelopathy Chronic and current use of high-risk medication (Opioids). The patient was counseled about risk of opioid use, psychological risk associated with opioids and was orally counseled to not overuse , divert or sell medications. Pt is to store medication in a safe location. The patient is counseled against driving while using narcotic medications and also not to use alcohol or any illicit recreational drugs. Patient verbalized understanding that the lack of compliance will result in failure to renew narcotic prescription(s) as well as possible discharge from the clinic Diagnoses, prognosis and treatment options including but not limited to physical therapy, surgical interventions, interventional therapies and medication management including narcotics and adjuvant medication were discussed. All patient questions answered MAPS reviewed and it was appropriate. UDS to be collected at next visit. Prescription refill for [place] 10/325mg # 60 w 1 RF I have spent less than 30 minutes on patient care today. Dr Rice was available by phone for the evaluation of this patient. The time was used to review the medical records including relevant urine studies and Prescription history (MAPs), review of the available imaging, evaluation and examination of the patient, coordination of care with the medical staff and if applicable referring physicians, as well as creation of the medical record PQRS Narrative: Smoking Status Current every day smoker Narcotic Agreement Date Signed 06/11/22 Hx Alcohol Use (MH) No Home Medications: Ambulatory Orders Ibuprofen [Motrin] 800 mg PO BID PRN 11/05/19 Benztropine Mesylate [Cogentin] 0.5 mg PO BID 14 Days tab 11/10/19 lamoTRIgine [LaMICtal] 200 mg PO BID 14 Days tab 11/10/19 Albuterol Inhaler [Ventolin Hfa Inhaler] 1 puff INHALATION RT-QID PRN #1 inhaler 01/22/20 ALPRAZolam [Xanax] 1 mg PO BID 06/12/21 Brexpiprazole [Rexulti] 4 mg PO QAM 06/12/21 Furosemide [Lasix] 40 mg PO QAM 06/12/21 Budesonide-Formot 160-4.5 Mcg [Symbicort 160-4.5 Mcg Inhaler] 2 puff INHALATION BID 12/18/21 metFORMIN HCL 500 mg PO BID 10/05/22 buPROPion XL [Wellbutrin XL] 300 mg PO QAM 03/21/22 haloperidoL [Haldol] 5 mg PO HS 03/21/22 Atorvastatin [Lipitor] 40 mg PO HS 10/10/22 Losartan [Cozaar] 25 mg PO QAM 10/10/22 HYDROcodone/APAP 5-325MG [[place] 5-325] 1 tab PO BID PRN 30 Days #120 tab 05/18/23 HYDROcodone/APAP 10-325MG [[place] 10-325] 1 tab PO BID PRN 30 Days #60 tab 09/07/23 HYDROcodone/APAP 10-325MG [[place] 10-325] 1 tab PO BID PRN 30 Days #60 tab 09/07/23 Controlled Substance Measures - Controlled Substance Measures Is patient prescribed a controlled substance at discharge?: Yes When asked, does pt state using other controlled substances?: Yes If prescribed controlled substance>3 days was MAPS reviewed?: Yes
== END ==
LOC: PNWHC3 09:00
PROVIDERS: ATTEND Specialist
DX: M47.812 Spondylosis without myelopathy or radiculopathy, cervical region (principal); M50.30 Other cervical disc degeneration, unspecified cervical region; F17.200 Nicotine dependence, unspecified, uncomplicated; Z79.891 Long term (current) use of opiate analgesic; Z91.048 Other nonmedicinal substance allergy status; Z91.041 Radiographic dye allergy status
CPT/HCPCS: 99211

== ENCOUNTER → 2023-11-02 | Outpatient (CLI) | payer OTHER | LOC: PNWHC3 09:30 | PROVIDERS: ATTEND Specialist | DX: M47.22 Other spondylosis with radiculopathy, cervical region (principal); F17.200 Nicotine dependence, unspecified, uncomplicated; Z91.041 Radiographic dye allergy status; Z91.048 Other nonmedicinal substance allergy status | CPT/HCPCS: 99212 ==

== ENCOUNTER → 2023-12-28 | Outpatient (CLI) | payer OTHER ==
[2023-12-28 09:16] VITALS: BP 125/70; PULSE 63; RESP 16; TEMP 98.9
--- NOTE | 2023-12-28 14:49 | P.PAINPG ---
Objective - Vital Signs Vital signs: Vital Signs Temp 98.9 F 12/28/23 09:12 Pulse 63 12/28/23 09:12 Resp 16 12/28/23 09:12 BP 125/70 12/28/23 09:12 Pulse Ox 96 12/28/23 09:12 FiO2 Intake & Output 12/27/23 12/28/23 12/28/23 18:59 06:59 18:59 Weight 268 kg PQRS Measure Charge Sheet Mode of Arrival: Ambulatory Comment: A 48 yr old female with a history of severe and chronic neck pain x yrs secondary to radiculopathy, spondylosis with facet arthropathy without myelopathy presents today for medication refills. Pain level is provoked at 8 /10 in intensity, constant, localized in the cervical spine, predominantly axial, throbbing in character w occasional shooting pain towards the BL shoulders. Pain is provoked by lifting, forward flexion. Pain is alleviated with PT integrated w massage x 6 wks in Dec 2021, heat, ice, medications, reclining, repositioning and rest. Interventional pain procedures completed include BL RFA C4-C6, RANDALL C6-C7 x2, Cervical TPIs x4 Patient is currently on [place] 10/325mg #60, Ibu Patient denies any side effects of the medication(s), denies excessive drowsiness or sleepiness, denies suicidal ideation and reports that the current pain medication is helping to control the pain and improve activities of daily living. Patient denies any motor or sensory deficits. Patient denies any fever or night sweats, denies any change in the bowel movements or urination. Physical Examination: -Constitutional: Cooperative. Not in acute distress . - Neurologic: Cranial nerve II to XII intact. No focal neurological deficits. - Psychatric: Alert & oriented x 3. Matching mood & appropriate affect. Judgment and insight intact. - Musculoskeletal: Cervical spine: Muscle bulk/ tone/ strength in the bilateral upper extremities normal Vertebral body tenderness to palpation over Spurling test positive Distraction test positive Taut bands w twitch response Facet loading test Thoracic spine Muscle bulk / tone/ strength in the bilateral paraspinal muscles normal Vertebral body tender to palpation over Facet loading test positive TTP Lumbar spine: Motor bulk/ tone/ strength lower extremities , thigh and legs : 5/5 Deep tendon reflexes : Normal Knee Jerk. Normal Ankle Jerk . Vertebral body tenderness to palpation over Lumbar Facet Loading Test positive Straight Leg Raise: positive at 30 degrees right side/ left side Gaenslen's Test positive Sacral spine : Severe tenderness over the Sacroiliac joint: right side / left side Range of motion: Flexion of the lumbar spine <60 degrees Range of motion: Extension of the lumbar spine <20 degrees Gaenslen's Test positive R / L Maxime test: positive right side / left side Thigh Thrust Test positive R / L Sacral Thrust Test positive R/ L Assessment and plan: Chronic neck pain secondary to radiculopathy, spondylosis with facet arthropathy without myelopathy Chronic and current use of high-risk medication (Opioids). The patient was counseled about risk of opioid use, psychological risk associated with opioids and was orally counseled to not overuse , divert or sell medications. Pt is to store medication in a safe location. The patient is counseled against driving while using narcotic medications and also not to use alcohol or any illicit recreational drugs. Patient verbalized understanding that the lack of compliance will result in failure to renew narcotic prescription(s) as well as possible discharge from the clinic Diagnoses, prognosis and treatment options including but not limited to physical therapy, surgical interventions, interventional therapies and medication management including narcotics and adjuvant medication were discussed. All patient questions answered MAPS reviewed and it was appropriate. UDS from 11/02/23 reviewed and consistent. Prescription refill for [place] 10/325mg # 60 w 1 RF I have spent less than 30 minutes on patient care today. Dr Rice was available by phone for the evaluation of this patient. The time was used to review the medical records including relevant urine studies and Prescription history (MAPs), review of the available imaging, evaluation and examination of the patient, coordination of care with the medical staff and if applicable referring physicians, as well as creation of the medical record - Pain Location Bilateral Neck Non-Pharmacological Interventions: Position/Reposition Pharmacological Interventions: PRN Medication PQRS Narrative: Smoking Status Current every day smoker Narcotic Agreement Date Signed 12/28/23 Blood Pressure 125/70 Pain Intensity [Bilateral Neck 8 ] Scale Used Numeric (1 - 10) Hx Alcohol Use (MH) No Home Medications: Ambulatory Orders Ibuprofen [Motrin] 800 mg PO BID PRN 11/05/19 Benztropine Mesylate [Cogentin] 0.5 mg PO BID 14 Days tab 11/10/19 lamoTRIgine [LaMICtal] 200 mg PO BID 14 Days tab 11/10/19 Albuterol Inhaler [Ventolin Hfa Inhaler] 1 puff INHALATION RT-QID PRN #1 inhaler 01/22/20 ALPRAZolam [Xanax] 1 mg PO BID 06/12/21 Brexpiprazole [Rexulti] 4 mg PO QAM 06/12/21 Furosemide [Lasix] 40 mg PO QAM 06/12/21 Budesonide-Formot 160-4.5 Mcg [Symbicort 160-4.5 Mcg Inhaler] 2 puff INHALATION BID 12/18/21 metFORMIN HCL 500 mg PO BID 12/18/21 buPROPion XL [Wellbutrin XL] 300 mg PO QAM 03/21/22 haloperidoL [Haldol] 5 mg PO HS 03/21/22 Atorvastatin [Lipitor] 40 mg PO HS 10/10/22 Losartan [Cozaar] 25 mg PO QAM 10/10/22 HYDROcodone/APAP 5-325MG [[place] 5-325] 1 tab PO BID PRN 30 Days #120 tab 05/18/23 HYDROcodone/APAP 10-325MG [[place] 10-325] 1 tab PO BID PRN 30 Days #60 tab 12/28/23 HYDROcodone/APAP 10-325MG [[place] 10-325] 1 tab PO BID PRN 30 Days #60 tab 12/28/23 Controlled Substance Measures - Controlled Substance Measures Is patient prescribed a controlled substance at discharge?: Yes When asked, does pt state using other controlled substances?: Yes If prescribed controlled substance>3 days was MAPS reviewed?: Yes
== END ==
LOC: PNWHC3 08:21
PROVIDERS: ATTEND Specialist
DX: M47.816 Spondylosis without myelopathy or radiculopathy, lumbar region
CPT/HCPCS: 99211

== ENCOUNTER → 2024-02-22 | Outpatient (CLI) | payer OTHER ==
[2024-02-22 09:19] VITALS: BP 127/81; PULSE 59; RESP 16; TEMP 97.1
--- NOTE | 2024-02-22 15:20 | P.PAINPG ---
Objective - Vital Signs Vital signs: Vital Signs Temp 97.1 F L 02/22/24 09:13 Pulse 59 L 02/22/24 09:13 Resp 16 02/22/24 09:13 BP 127/81 02/22/24 09:13 Pulse Ox 100 02/22/24 09:13 FiO2 Intake & Output 02/21/24 02/22/24 02/22/24 18:59 06:59 18:59 Weight 117.934 kg PQRS Measure Charge Sheet Mode of Arrival: Ambulatory Comment: A 48 yr old female with a history of severe and chronic neck pain x yrs sec ondary to radiculopathy, spondylosis with facet arthropathy without myelopathy presents today for medication refills. Pain level is provoked at 7 /10 in intensity, constant, localized in the cervical spine, predominantly axial, stabbing in character w occasional shooting pain towards the BL shoulders. Pain is provoked by lifting, forward flexion. Pain is alleviated with PT integrated w massage x 6 wks in Dec 2021, heat, ice, medications, reclining, repositioning and rest. Interventional pain procedures completed include BL RFA C4-C6, RANDALL C6-C7 x2, Cervical TPIs x4 Patient is currently on [place] 10/325mg #60, Ibu Patient denies any side effects of the medication(s), denies excessive drowsiness or sleepiness, denies suicidal ideation and reports that the current pain medication is helping to control the pain and improve activities of daily living. Patient denies any motor or sensory deficits. Patient denies any fever or night sweats, denies any change in the bowel movements or urination. Physical Examination: -Constitutional: Cooperative. Not in acute distress . - Neurologic: Cranial nerve II to XII intact. No focal neurological deficits. - Psychatric: Alert & oriented x 3. Matching mood & appropriate affect. Judgment and insight intact. - Musculoskeletal: Cervical spine: Muscle bulk/ tone/ strength in the bilateral upper extremities normal Vertebral body tenderness to palpation over Spurling test positive Distraction test positive Taut bands w twitch response Facet loading test Thoracic spine Muscle bulk / tone/ strength in the bilateral paraspinal muscles normal Vertebral body tender to palpation over Facet loading test positive TTP Lumbar spine: Motor bulk/ tone/ strength lower extremities , thigh and legs : 5/5 Deep tendon reflexes : Normal Knee Jerk. Normal Ankle Jerk . Vertebral body tenderness to palpation over Lumbar Facet Loading Test positive Straight Leg Raise: positive at 30 degrees right side/ left side Gaenslen's Test positive Sacral spine : Severe tenderness over the Sacroiliac joint: right side / left side Range of motion: Flexion of the lumbar spine <60 degrees Range of motion: Extension of the lumbar spine <20 degrees Gaenslen's Test positive R / L Maxime test: positive right side / left side Thigh Thrust Test positive R / L Sacral Thrust Test positive R/ L Assessment and plan: Chronic neck pain secondary to radiculopathy, spondylosis with facet arthropathy without myelopathy Chronic and current use of high-risk medication (Opioids). The patient was counseled about risk of opioid use, psychological risk associated with opioids and was orally counseled to not overuse , divert or sell medications. Pt is to store medication in a safe location. The patient is counseled against driving while using narcotic medications and also not to use alcohol or any illicit recreational drugs. Patient verbalized understanding that the lack of compliance will result in failure to renew narcotic prescription(s) as well as possible discharge from the clinic Diagnoses, prognosis and treatment options including but not limited to physical therapy, surgical interventions, interventional therapies and medication management including narcotics and adjuvant medication were discussed. All patient questions answered . Opiate/ narcotic agreement renewed 1 04/24/23 . MAPS reviewed and it was appropriate. UDS from 11/02/23 reviewed and consistent. Prescription refill for [place] 10/325mg # 60 w 1 RF I have spent less than 30 minutes on patient care today. Dr Rice was available by phone for the evaluation of this patient. The time was used to review the medical records including relevant urine studies and Prescription history (MAPs), review of the available imaging, evaluation and examination of the patient, coordination of care with the medical staff and if applicable referring physicians, as well as creation of the medical record - Pain Location Bilateral Lower Neck Non-Pharmacological Interventions: Inactivity, Physical Therapy, Position/Reposition Pharmacological Interventions: Epidural, PRN Medication, Scheduled Medication, Topical Medication PQRS Narrative: Smoking Status Current every day smoker Narcotic Agreement Date Signed 02/22/24 Blood Pressure 127/81 Pain Intensity [Bilateral 7 Lower Neck] Scale Used Numeric (1 - 10) Hx Alcohol Use (MH) No Home Medications: Ambulatory Orders Ibuprofen [Motrin] 800 mg PO BID PRN 11/05/19 Benztropine Mesylate [Cogentin] 0.5 mg PO BID 14 Days tab 11/10/19 lamoTRIgine [LaMICtal] 200 mg PO BID 14 Days tab 11/10/19 Albuterol Inhaler [Ventolin Hfa Inhaler] 1 puff INHALATION RT-QID PRN #1 inhaler 01/22/20 ALPRAZolam [Xanax] 1 mg PO BID 06/12/21 Brexpiprazole [Rexulti] 4 mg PO QAM 06/12/21 Furosemide [Lasix] 40 mg PO QAM 06/12/21 Budesonide-Formot 160-4.5 Mcg [Symbicort 160-4.5 Mcg Inhaler] 2 puff INHALATION BID 12/18/21 metFORMIN HCL 500 mg PO BID 12/18/21 buPROPion XL [Wellbutrin XL] 300 mg PO QAM 03/21/22 haloperidoL [Haldol] 5 mg PO HS 03/21/22 Atorvastatin [Lipitor] 40 mg PO HS 10/10/22 Losartan [Cozaar] 25 mg PO QAM 10/10/22 HYDROcodone/APAP 5-325MG [[place] 5-325] 1 tab PO BID PRN 30 Days #120 tab 05/18/23 HYDROcodone/APAP 10-325MG [[place] 10-325] 1 tab PO BID PRN 30 Days #60 tab 02/22/24 HYDROcodone/APAP 10-325MG [[place] 10-325] 1 tab PO BID PRN 30 Days #60 tab 02/22/24 Controlled Substance Measures - Controlled Substance Measures Is patient prescribed a controlled substance at discharge?: Yes When asked, does pt state using other controlled substances?: Yes If prescribed controlled substance>3 days was MAPS reviewed?: Yes If Rx opioid, was Start Talking consent form obtained?: Yes Was information provided regarding opioid addiction?: Yes
== END ==
LOC: PNWHC3 08:52
PROVIDERS: ATTEND Specialist
DX: M47.22 Other spondylosis with radiculopathy, cervical region (principal); F17.210 Nicotine dependence, cigarettes, uncomplicated; Z91.048 Other nonmedicinal substance allergy status; Z91.041 Radiographic dye allergy status; Z79.84 Long term (current) use of oral hypoglycemic drugs; Z79.891 Long term (current) use of opiate analgesic
CPT/HCPCS: 99211

== ENCOUNTER → 2024-04-18 | Outpatient (CLI) | payer OTHER ==
[2024-04-18 09:29] VITALS: BP 140/75; PULSE 68; RESP 19; TEMP 97.3
--- NOTE | 2024-04-18 16:16 | P.PAINPG ---
Objective - Vital Signs Vital signs: Vital Signs Temp 97.3 F L 04/18/24 09:22 Pulse 68 04/18/24 09:22 Resp 19 04/18/24 09:22 BP 140/75 04/18/24 09:22 Pulse Ox 98 04/18/24 09:22 FiO2 Intake & Output 04/17/24 04/18/24 04/18/24 18:59 06:59 18:59 Weight 112.037 kg PQRS Measure Charge Sheet Mode of Arrival: Ambulatory Comment: A 48 yr old female with a history of severe and chronic neck pain x yrs secon umesh to radiculopathy, spondylosis with facet arthropathy without myelopathy presents today for medication refills. Pain level is provoked at 7 /10 in intensity, constant, localized in the cervical spine, predominantly axial, stabbing in character w occasional shooting pain towards the BL shoulders. Pain is provoked by lifting, forward flexion. Pain is alleviated with PT integrated w massage x 6 wks in Dec 2021, heat, ice, medications, reclining, repositioning and rest. Interventional pain procedures completed include BL RFA C4-C6, RANDALL C6-C7 x2, Cervical TPIs x4 Patient is currently on [place] 10/325mg #60, Ibu Patient denies any side effects of the medication(s), denies excessive drowsiness or sleepiness, denies suicidal ideation and reports that the current pain medication is helping to control the pain and improve activities of daily living. Patient denies any motor or sensory deficits. Patient denies any fever or night sweats, denies any change in the bowel movements or urination. Physical Examination: -Constitutional: Cooperative. Not in acute distress . - Neurologic: Cranial nerve II to XII intact. No focal neurological deficits. - Psychatric: Alert & oriented x 3. Matching mood & appropriate affect. Judgment and insight intact. - Musculoskeletal: Cervical spine: Muscle bulk/ tone/ strength in the bilateral upper extremities normal Vertebral body tenderness to palpation over Spurling test positive Distraction test positive Taut bands w twitch response Facet loading test Thoracic spine Muscle bulk / tone/ strength in the bilateral paraspinal muscles normal Vertebral body tender to palpation over Facet loading test positive TTP Lumbar spine: Motor bulk/ tone/ strength lower extremities , thigh and legs : 5/5 Deep tendon reflexes : Normal Knee Jerk. Normal Ankle Jerk . Vertebral body tenderness to palpation over Lumbar Facet Loading Test positive Straight Leg Raise: positive at 30 degrees right side/ left side Gaenslen's Test positive Sacral spine : Severe tenderness over the Sacroiliac joint: right side / left side Range of motion: Flexion of the lumbar spine <60 degrees Range of motion: Extension of the lumbar spine <20 degrees Gaenslen's Test positive R / L Maxime test: positive right side / left side Thigh Thrust Test positive R / L Sacral Thrust Test positive R/ L Assessment and plan: Chronic neck pain secondary to radiculopathy, spondylosis with facet arthropathy without myelopathy Chronic and current use of high-risk medication (Opioids). The patient was counseled about risk of opioid use, psychological risk associated with opioids and was orally counseled to not overuse , divert or sell medications. Pt is to store medication in a safe location. The patient is counseled against driving while using narcotic medications and also not to use alcohol or any illicit recreational drugs. Patient verbalized understanding that the lack of compliance will result in failure to renew narcotic prescription(s) as well as possible discharge from the clinic Diagnoses, prognosis and treatment options including but not limited to physical therapy, surgical interventions, interventional therapies and medication management including narcotics and adjuvant medication were discussed. All patient questions answered . Opiate/ narcotic agreement renewed 02/22/24 . MAPS reviewed and it was appropriate. UDS from 11/02/23 reviewed and consistent. Prescription refill for [place] 10/325mg # 60 w 1 RF I have spent less than 30 minutes on patient care today. Dr Rice was available by phone for the evaluation of this patient. The time was used to review the medical records including relevant urine studies and Prescription history (MAPs), review of the available imaging, evaluation and examination of the patient, coordination of care with the medical staff and if applicable referring physicians, as well as creation of the medical record - Pain Location Neck Non-Pharmacological Interventions: Inactivity PQRS Narrative: Smoking Status Current every day smoker Narcotic Agreement Date Signed 02/22/24 Blood Pressure 140/75 Pain Intensity [Neck] 7 Scale Used Numeric (1 - 10) Hx Alcohol Use (MH) No Home Medications: Ambulatory Orders Ibuprofen [Motrin] 800 mg PO BID PRN 11/05/19 Benztropine Mesylate [Cogentin] 0.5 mg PO BID 14 Days tab 11/10/19 lamoTRIgine [LaMICtal] 200 mg PO BID 14 Days tab 11/10/19 Albuterol Inhaler [Ventolin Hfa Inhaler] 1 puff INHALATION RT-QID PRN #1 inhaler 01/22/20 ALPRAZolam [Xanax] 1 mg PO BID 06/12/21 Brexpiprazole [Rexulti] 4 mg PO QAM 06/12/21 Furosemide [Lasix] 40 mg PO QAM 06/12/21 Budesonide-Formot 160-4.5 Mcg [Symbicort 160-4.5 Mcg Inhaler] 2 puff INHALATION BID 12/18/21 metFORMIN HCL 500 mg PO BID 12/18/21 buPROPion XL [Wellbutrin XL] 300 mg PO QAM 03/21/22 haloperidoL [Haldol] 5 mg PO HS 03/21/22 Atorvastatin [Lipitor] 40 mg PO HS 10/10/22 Losartan [Cozaar] 25 mg PO QAM 10/10/22 HYDROcodone/APAP 5-325MG [[place] 5-325] 1 tab PO BID PRN 30 Days #120 tab 05/18/23 HYDROcodone/APAP 10-325MG [[place] 10-325] 1 tab PO BID PRN 30 Days #60 tab 02/22/24 HYDROcodone/APAP 10-325MG [[place] 10-325] 1 tab PO BID PRN 30 Days #60 tab 02/22/24 Controlled Substance Measures - Controlled Substance Measures Is patient prescribed a controlled substance at discharge?: Yes When asked, does pt state using other controlled substances?: Yes If prescribed controlled substance>3 days was MAPS reviewed?: Yes
== END ==
LOC: PNWHC3 08:46
PROVIDERS: ATTEND Specialist
DX: M47.22 Other spondylosis with radiculopathy, cervical region (principal); F17.210 Nicotine dependence, cigarettes, uncomplicated; G89.29 Other chronic pain; Z79.899 Other long term (current) drug therapy; Z91.041 Radiographic dye allergy status; Z91.09 Other allergy status, other than to drugs and biological substances
CPT/HCPCS: 99211

== ENCOUNTER → 2024-06-13 | Outpatient (CLI) | payer OTHER ==
[2024-06-13 10:10] VITALS: BP 154/82; PULSE 63; RESP 16
--- NOTE | 2024-06-13 15:18 | P.PAINPG ---
PQRS Measure Charge Sheet Comment: A 48 yr old female with a history of severe and chronic neck pain x yrs secondary to radiculopathy, spondylosis with facet arthropathy without myelopathy presents today for medication refills. Pain level is provoked at 7 /10 in intensity, constant, localized in the cervical spine, predominantly axial, stabbing in character w occasional shooting pain towards the BL shoulders. Pain is provoked by lifting, forward flexion. Pain is alleviated with PT integrated w massage x 6 wks in Dec 2021, heat, ice, medications, reclining, repositioning and rest. Interventional pain procedures completed include BL RFA C4-C6, RANDALL C6-C7 x2, Cervical TPIs x4 Patient is currently on [place] 10/325mg #60, Ibu Patient denies any side effects of the medication(s), denies excessive drowsiness or sleepiness, denies suicidal ideation and reports that the current pain medication is helping to control the pain and improve activities of daily living. Patient denies any motor or sensory deficits. Patient denies any fever or night sweats, denies any change in the bowel movements or urination. Physical Examination: -Constitutional: Cooperative. Not in acute distress . - Neurologic: Cranial nerve II to XII intact. No focal neurological deficits. - Psychatric: Alert & oriented x 3. Matching mood & appropriate affect. Ju dgment and insight intact. - Musculoskeletal: Cervical spine: Muscle bulk/ tone/ strength in the bilateral upper extremities normal Vertebral body tenderness to palpation over Spurling test positive Distraction test positive Taut bands w twitch response Facet loading test Thoracic spine Muscle bulk / tone/ strength in the bilateral paraspinal muscles normal Vertebral body tender to palpation over Facet loading test positive TTP Lumbar spine: Motor bulk/ tone/ strength lower extremities , thigh and legs : 5/5 Deep tendon reflexes : Normal Knee Jerk. Normal Ankle Jerk . Vertebral body tenderness to palpation over Lumbar Facet Loading Test positive Straight Leg Raise: positive at 30 degrees right side/ left side Gaenslen's Test positive Sacral spine : Severe tenderness over the Sacroiliac joint: right side / left side Range of motion: Flexion of the lumbar spine <60 degrees Range of motion: Extension of the lumbar spine <20 degrees Gaenslen's Test positive R / L Maxime test: positive right side / left side Thigh Thrust Test positive R / L Sacral Thrust Test positive R/ L Assessment and plan: Chronic neck pain secondary to radiculopathy, spondylosis with facet art hropathy without myelopathy Chronic and current use of high-risk medication (Opioids). The patient was counseled about risk of opioid use, psychological risk associated with opioids and was orally counseled to not overuse , divert or sell medications. Pt is to store medication in a safe location. The patient is counseled against driving while using narcotic medications and also not to use alcohol or any illicit recreational drugs. Patient verbalized understanding that the lack of compliance will result in failure to renew narcotic prescription(s) as well as possible discharge from the clinic Diagnoses, prognosis and treatment options including but not limited to physical therapy, surgical interventions, interventional therapies and medication management including narcotics and adjuvant medication were discussed. All patient questions answered . Opiate/ narcotic agreement renewed 02/22/24 . MAPS reviewed and it was appropriate. UDS from 11/02/23 reviewed and consistent. Prescription refill for [place] 10/325mg # 60 w 1 RF I have spent less than 30 minutes on patient care today. Dr Rice was available by phone for the evaluation of this patient. The time was used to review the medical records including relevant urine studies and Prescription history (MAPs), review of the available imaging, evaluation and examination of the patient, coordination of care with the medical staff and if applicable referring physicians, as well as creation of the medical record PQRS Narrative: Smoking Status Current every day smoker Narcotic Agreement Date Signed 02/22/24 Hx Alcohol Use (MH) No Home Medications: Ambulatory Orders Ibuprofen [Motrin] 800 mg PO BID PRN 11/05/19 Benztropine Mesylate [Cogentin] 0.5 mg PO BID 14 Days tab 11/10/19 lamoTRIgine [LaMICtal] 200 mg PO BID 14 Days tab 11/10/19 Albuterol Inhaler [Ventolin Hfa Inhaler] 1 puff INHALATION RT-QID PRN #1 inhaler 01/22/20 ALPRAZolam [Xanax] 1 mg PO BID 06/12/21 Brexpiprazole [Rexulti] 4 mg PO QAM 06/12/21 Furosemide [Lasix] 40 mg PO QAM 06/12/21 Budesonide-Formot 160-4.5 Mcg [Symbicort 160-4.5 Mcg Inhaler] 2 puff INHALATION BID 12/18/21 metFORMIN HCL 500 mg PO BID 12/18/21 buPROPion XL [Wellbutrin XL] 300 mg PO QAM 03/21/22 haloperidoL [Haldol] 5 mg PO HS 03/21/22 Atorvastatin [Lipitor] 40 mg PO HS 10/10/22 Losartan [Cozaar] 25 mg PO QAM 10/10/22 HYDROcodone/APAP 5-325MG [[place] 5-325] 1 tab PO BID PRN 30 Days #120 tab 05/18/23 HYDROcodone/APAP 10-325MG [[place] 10-325] 1 tab PO BID PRN 30 Days #60 tab 04/18/24 HYDROcodone/APAP 10-325MG [[place] 10-325] 1 tab PO BID PRN 30 Days #60 tab 04/18/24 Controlled Substance Measures - Controlled Substance Measures Is patient prescribed a controlled substance at discharge?: Yes When asked, does pt state using other controlled substances?: No If prescribed controlled substance>3 days was MAPS reviewed?: Yes
== END ==
LOC: PNWHC3 09:05
PROVIDERS: ATTEND Specialist
DX: M47.812 Spondylosis without myelopathy or radiculopathy, cervical region (principal); F17.200 Nicotine dependence, unspecified, uncomplicated; Z86.59 Personal history of other mental and behavioral disorders; Z91.048 Other nonmedicinal substance allergy status; Z91.041 Radiographic dye allergy status
CPT/HCPCS: 99211

== ENCOUNTER → 2024-08-01 | Outpatient (CLI) | payer OTHER ==
[2024-08-01 12:41] VITALS: BP 152/78; PULSE 93; RESP 16; TEMP 96.9
--- NOTE | 2024-08-03 11:00 | P.PAINPG ---
PQRS Measure Charge Sheet Comment: A 48 yr old female with a history of severe and chronic neck pain x yrs secondary to radiculopathy, spondylosis with facet arthropathy without myelopathy presents today for medication refills. Pain level is provoked at 7 /10 in intensity, constant, localized in the cervical spine, predominantly axial, stabbing in character w occasional shooting pain towards the BL shoulders. Pain is provoked by lifting, forward flexion. Pain is alleviated with PT integrated w massage x 6 wks in Dec 2021, heat, ice, medications, reclining, repositioning and rest. Interventional pain procedures completed include BL RFA C4-C6, RANDALL C6-C7 x2, Cervical TPIs x4 Patient is currently on Taylor 10/325mg #60, Ibu Patient denies any side effects of the medication(s), denies excessive drowsiness or sleepiness, denies suicidal ideation and reports that the current pain medication is helping to control the pain and improve activities of daily living. Patient denies any motor or sensory deficits. Patient denies any fever or night sweats, denies any change in the bowel movements or urination. Physical Examination: -Constitutional: Cooperative. Not in acute distress . - Neurologic: Cranial nerve II to XII intact. No focal neurological deficits. - Psychatric: Alert & oriented x 3. Matching mood & appropriate affect. Ju dgment and insight intact. - Musculoskeletal: Cervical spine: Muscle bulk/ tone/ strength in the bilateral upper extremities normal Vertebral body tenderness to palpation over Spurling test positive Distraction test positive Taut bands w twitch response Facet loading test Thoracic spine Muscle bulk / tone/ strength in the bilateral paraspinal muscles normal Vertebral body tender to palpation over Facet loading test positive TTP Lumbar spine: Motor bulk/ tone/ strength lower extremities , thigh and legs : 5/5 Deep tendon reflexes : Normal Knee Jerk. Normal Ankle Jerk . Vertebral body tenderness to palpation over Lumbar Facet Loading Test positive Straight Leg Raise: positive at 30 degrees right side/ left side Gaenslen's Test positive Sacral spine : Severe tenderness over the Sacroiliac joint: right side / left side Range of motion: Flexion of the lumbar spine <60 degrees Range of motion: Extension of the lumbar spine <20 degrees Gaenslen's Test positive R / L Maxime test: positive right side / left side Thigh Thrust Test positive R / L Sacral Thrust Test positive R/ L Assessment and plan: Chronic neck pain secondary to radiculopathy, spondylosis with facet art hropathy without myelopathy Chronic and current use of high-risk medication (Opioids). The patient was counseled about risk of opioid use, psychological risk associated with opioids and was orally counseled to not overuse , divert or sell medications. Pt is to store medication in a safe location. The patient is counseled against driving while using narcotic medications and also not to use alcohol or any illicit recreational drugs. Patient verbalized understanding that the lack of compliance will result in failure to renew narcotic prescription(s) as well as possible discharge from the clinic Diagnoses, prognosis and treatment options including but not limited to physical therapy, surgical interventions, interventional therapies and medication management including narcotics and adjuvant medication were discussed. All patient questions answered . Opiate/ narcotic agreement renewed 02/22/24 . MAPS reviewed and it was appropriate. UDS collected 08/01/24. Prescription refill for Taylor 10/325mg # 60 w 1 RF I have spent less than 30 minutes on patient care today. Dr Rice was available by phone for the evaluation of this patient. The time was used to review the medical records including relevant urine studies and Prescription history (MAPs), review of the available imaging, evaluation and examination of the patient, coordination of care with the medical staff and if applicable referring physicians, as well as creation of the medical record PQRS Narrative: Smoking Status Current every day smoker Narcotic Agreement Date Signed 02/22/24 Hx Alcohol Use (MH) No Home Medications: Ambulatory Orders Ibuprofen [Motrin] 800 mg PO BID PRN 11/05/19 Benztropine Mesylate [Cogentin] 0.5 mg PO BID 14 Days tab 11/10/19 lamoTRIgine [LaMICtal] 200 mg PO BID 14 Days tab 11/10/19 Albuterol Inhaler [Ventolin Hfa Inhaler] 1 puff INHALATION RT-QID PRN #1 inhaler 01/22/20 ALPRAZolam [Xanax] 1 mg PO BID 06/12/21 Brexpiprazole [Rexulti] 4 mg PO QAM 06/12/21 Furosemide [Lasix] 40 mg PO QAM 06/12/21 Budesonide-Formot 160-4.5 Mcg [Symbicort 160-4.5 Mcg Inhaler] 2 puff INHALATION BID 12/18/21 metFORMIN HCL 500 mg PO BID 12/18/21 buPROPion XL [Wellbutrin XL] 300 mg PO QAM 03/21/22 haloperidoL [Haldol] 5 mg PO HS 03/21/22 Losartan [Cozaar] 25 mg PO QAM 10/10/22 HYDROcodone/APAP 5-325MG [Taylor 5-325] 1 tab PO BID PRN 30 Days #120 tab 05/18/23 HYDROcodone/APAP 10-325MG [Taylor 10-325] 1 tab PO BID PRN 30 Days #60 tab 06/13/24 HYDROcodone/APAP 10-325MG [Taylor 10-325] 1 tab PO BID PRN 30 Days #60 tab 06/13/24 Controlled Substance Measures - Controlled Substance Measures Is patient prescribed a controlled substance at discharge?: Yes When asked, does pt state using other controlled substances?: No If prescribed controlled substance>3 days was MAPS reviewed?: Yes
== END ==
LOC: PNWHC3 12:02
PROVIDERS: ATTEND Specialist
DX: M47.22 Other spondylosis with radiculopathy, cervical region (principal); F11.90 Opioid use, unspecified, uncomplicated; F17.200 Nicotine dependence, unspecified, uncomplicated; Z91.041 Radiographic dye allergy status; Z91.048 Other nonmedicinal substance allergy status
CPT/HCPCS: 80307; G0463; 99212

== ENCOUNTER → 2024-10-03 | Outpatient (CLI) | payer OTHER ==
[2024-10-03 12:50] VITALS: BP 117/76; PULSE 65; RESP 19
--- NOTE | 2024-10-03 17:30 | P.PAINPG ---
PQRS Measure Charge Sheet Comment: A 48 yr old female with a history of severe and chronic neck pain x yrs secondary to radiculopathy, spondylosis with facet arthropathy without myelopathy presents today for medication refills. Pain level is provoked at 7 /10 in intensity, constant, localized in the cervical spine, predominantly axial, stabbing in character w occasional shooting pain towards the BL shoulders. Pain is provoked by lifting, forward flexion. Pain is alleviated with PT integrated w massage x 6 wks in Dec 2021, heat, ice, medications, reclining, repositioning and rest. Interventional pain procedures completed include BL RFA C4-C6, RANDALL C6-C7 x2, Cervical TPIs x4 Patient is currently on Lamar 10/325mg #60, Ibu Patient denies any side effects of the medication(s), denies excessive drowsiness or sleepiness, denies suicidal ideation and reports that the current pain medication is helping to control the pain and improve activities of daily living. Patient denies any motor or sensory deficits. Patient denies any fever or night sweats, denies any change in the bowel movements or urination. Physical Examination: -Constitutional: Cooperative. Not in acute distress . - Neurologic: Cranial nerve II to XII intact. No focal neurological deficits. - Psychatric: Alert & oriented x 3. Matching mood & appropriate affect. Ju dgment and insight intact. - Musculoskeletal: Cervical spine: Muscle bulk/ tone/ strength in the bilateral upper extremities normal Vertebral body tenderness to palpation over Spurling test positive Distraction test positive Taut bands w twitch response Facet loading test Thoracic spine Muscle bulk / tone/ strength in the bilateral paraspinal muscles normal Vertebral body tender to palpation over Facet loading test positive TTP Lumbar spine: Motor bulk/ tone/ strength lower extremities , thigh and legs : 5/5 Deep tendon reflexes : Normal Knee Jerk. Normal Ankle Jerk . Vertebral body tenderness to palpation over Lumbar Facet Loading Test positive Straight Leg Raise: positive at 30 degrees right side/ left side Gaenslen's Test positive Sacral spine : Severe tenderness over the Sacroiliac joint: right side / left side Range of motion: Flexion of the lumbar spine <60 degrees Range of motion: Extension of the lumbar spine <20 degrees Gaenslen's Test positive R / L Maxime test: positive right side / left side Thigh Thrust Test positive R / L Sacral Thrust Test positive R/ L Assessment and plan: Chronic neck pain secondary to radiculopathy, spondylosis with facet art hropathy without myelopathy Chronic and current use of high-risk medication (Opioids). The patient was counseled about risk of opioid use, psychological risk associated with opioids and was orally counseled to not overuse , divert or sell medications. Pt is to store medication in a safe location. The patient is counseled against driving while using narcotic medications and also not to use alcohol or any illicit recreational drugs. Patient verbalized understanding that the lack of compliance will result in failure to renew narcotic prescription(s) as well as possible discharge from the clinic Diagnoses, prognosis and treatment options including but not limited to physical therapy, surgical interventions, interventional therapies and medication management including narcotics and adjuvant medication were discussed. All patient questions answered . Opiate/ narcotic agreement renewed 02/22/24 . MAPS reviewed and it was appropriate. UDS 08/01/24 reviewed and consistent. Prescription refill for Lamar 10/325mg # 60 w 1 RF I have spent less than 30 minutes on patient care today. Dr Rice was available by phone for the evaluation of this patient. The time was used to review the medical records including relevant urine studies and Prescription history (MAPs), review of the available imaging, evaluation and examination of the patient, coordination of care with the medical staff and if applicable referring physicians, as well as creation of the medical record PQRS Narrative: Smoking Status Current every day smoker Narcotic Agreement Date Signed 02/22/24 Hx Alcohol Use (MH) No Home Medications: Ambulatory Orders Ibuprofen [Motrin] 800 mg PO BID PRN 11/05/19 Benztropine Mesylate [Cogentin] 0.5 mg PO BID 14 Days tab 11/10/19 lamoTRIgine [LaMICtal] 200 mg PO BID 14 Days tab 11/10/19 Albuterol Inhaler [Ventolin Hfa Inhaler] 1 puff INHALATION RT-QID PRN #1 inhaler 01/22/20 ALPRAZolam [Xanax] 1 mg PO BID 06/12/21 Brexpiprazole [Rexulti] 4 mg PO QAM 06/12/21 Furosemide [Lasix] 40 mg PO QAM 06/12/21 Budesonide-Formot 160-4.5 Mcg [Symbicort 160-4.5 Mcg Inhaler] 2 puff INHALATION BID 12/18/21 metFORMIN HCL 500 mg PO BID 12/18/21 buPROPion XL [Wellbutrin XL] 300 mg PO QAM 03/21/22 haloperidoL [Haldol] 5 mg PO HS 03/21/22 Losartan [Cozaar] 25 mg PO QAM 10/10/22 HYDROcodone/APAP 10-325MG [Lamar 10-325] 1 tab PO BID PRN 30 Days #60 tab 10/03/24 HYDROcodone/APAP 10-325MG [Lamar 10-325] 1 tab PO BID PRN 30 Days #60 tab 10/03/24 Controlled Substance Measures - Controlled Substance Measures Is patient prescribed a controlled substance at discharge?: Yes When asked, does pt state using other controlled substances?: Yes If prescribed controlled substance>3 days was MAPS reviewed?: Yes
== END ==
LOC: PNWHC3 12:04
PROVIDERS: ATTEND Specialist
DX: M47.22 Other spondylosis with radiculopathy, cervical region (principal); F17.200 Nicotine dependence, unspecified, uncomplicated; Z91.048 Other nonmedicinal substance allergy status; Z91.041 Radiographic dye allergy status
CPT/HCPCS: 99212